=== PATIENT | female | born 1950 | race Caucasian/White ===

== ENCOUNTER → 2017-12-27 12:30 | Outpatient (CLI) | payer MEDICARE, SELFPAY ==
[2017-10-01 14:36] VITALS: BMI 44.2
== END ==
PROVIDERS: PCP Internal Medicine; Visit Provider Internal Medicine
DX: E03.9 Hypothyroidism, unspecified (principal)
CPT/HCPCS: 36415; 84443

== ENCOUNTER → 2018-09-10 12:24 | Outpatient (CLI) | payer MEDICARE, SELFPAY ==
[2017-10-01 14:36] VITALS: BMI 44.2
--- NOTE | 2018-09-10 | DI.RAD.S_ITS ---
PROCEDURE: XR CERVICAL SPINE 4V OR 5V INDICATIONS: CERVICAL SPONDYLOSIS TECHNIQUE: 5 views of the cervical spine were acquired. COMPARISON: None. FINDINGS: Bones: No fractures or dislocations to the C7-T1 level. Degenerative disc disease at C4-5, C5-6 and C6-7 levels are seen. No suspicious bony lesions. There is normal range of motion between flexion and extension, with preserved normal bony alignment. Soft tissues: Prevertebral soft tissues are normal in thickness. IMPRESSION: Degenerative disc disease in mid to lower cervical spine. No compression fracture or spondylolisthesis. Normal range of motion. Dictated by: Gabriel Lemos M.D. on 09/10/2018 at 14:34 Approved by: Gabriel Lemos M.D. on 09/10/2018 at 14:35
== END ==
PROVIDERS: Family Provider Internal Medicine; PCP Internal Medicine; Visit Provider Internal Medicine Rheumatology
DX: M50.321 Other cervical disc degeneration at C4-C5 level (principal)
CPT/HCPCS: 72050

== ENCOUNTER → 2018-10-06 13:49 | Outpatient (CLI) | payer MEDICARE, SELFPAY ==
[2017-10-01 14:36] VITALS: BMI 44.2
== END ==
PROVIDERS: Family Provider Internal Medicine; PCP Internal Medicine; Visit Provider Physician Assistant
DX: R30.0 Dysuria (principal)
CPT/HCPCS: 87077; 87086; 87186

== ENCOUNTER 2018-11-14 01:57 | Emergency (ER) | payer MEDICARE, SELFPAY ==
[2017-10-01 14:36] VITALS: BMI 44.2
[2018-11-14 02:03] VITALS: BP 187/101; PULSE 105; RESP 18; TEMP 36.9; O2SAT 99; BMI 41.6
[2018-11-14] MEDS: IBUPROFEN 400 MG TABLET PO (02:15)
--- NOTE | 2018-11-14 02:15 | ED.FALL ---
HPI - Fall General Chief Complaint: Fall Stated Complaint: Fell and hit her head Time Seen by Provider: 11/14/18 02:00 Source: patient Mode of arrival: ambulatory Limitations: no limitations History of Present Illness HPI Narrative: Patient is a 68-year-old female who presents after ground level fall. She thinks she slipped on CT throw up she fell forward hitting her head on a ceramic bowl. She is complaining of some right knee discomfort as well and a left breast scratch. She did not lose consciousness she is not on any anti-platelet or anticoagulation medication. She has no neck pain. She has no persistent vomiting. She is worried because the cut up her head she thought she might need some antibiotics. She has previously had bilateral knee replacements and she does not want them to get. She actually did a great job of getting the bleeding to stop. It is fairly small superficial laceration right at the start of the hairline. She also has some right knee pain but really is ambulatory and able to move the leg quite easily. MD complaint: fall Onset (ago): minute(s) Fall from: standing Fall witnessed: no Related Data Home Medications Medication Instructions Recorded Confirmed benazepril [Lotensin] 10 mg PO DAILY 09/17/17 10/06/18 clemastine 2.68 mg PO DAILY PRN 09/17/17 10/06/18 clotrimazole-betamethasone 1 applic TOPICAL BID 09/17/17 10/06/18 [Lotrisone] cyclobenzaprine 10 mg PO BID 09/17/17 10/06/18 duloxetine 60 mg PO DAILY 09/17/17 10/06/18 hydrochlorothiazide 50 mg PO DAILY 09/17/17 10/06/18 hydrocortisone-pramoxine 1 applic AR BID PRN 09/17/17 10/06/18 [Analpram-HC] hydroxyzine pamoate 50 mg PO Q4H PRN 09/17/17 10/06/18 levothyroxine 125 mcg PO DAILY 09/17/17 10/06/18 phenazopyridine [Pyridium] 200 mg PO TID PRN 09/17/17 10/06/18 sertraline [Zoloft] 100 mg PO DAILY 09/17/17 10/06/18 sumatriptan succinate [Imitrex] 50 mg PO Q2-4H PRN 09/17/17 10/06/18 omeprazole 20 mg PO DAILY 10/01/17 10/06/18 potassium chloride 10 meq PO DAILY 10/01/17 10/06/18 Previous Rx's Medication Instructions Recorded oxycodone 10 mg PO Q4H PRN #60 tab 10/03/17 Synthroid 125 mcg tablet 125 mcg PO DAILY #90 tab NS 08/26/18 Allergies Allergy/AdvReac Type Severity Reaction Status Date / Time mushroom [MUSHROOM] Allergy Severe 'CUTS OFF Verified 10/06/18 13:33 BREATHING' oxaprozin [OXAPROZIN] Allergy Mild RASH Verified 10/06/18 13:33 diphenhydramine AdvReac Severe PERSONALITY Verified 10/06/18 13:33 [DIPHENHYDRAMINE] CHANGE I TURN INTO AN AX KILLER trazodone [TRAZODONE] AdvReac Severe DIFFICULTY Verified 10/06/18 13:33 SLEEPING, MADE ME CRAZY pineapple [PINEAPPLE] AdvReac Mild VOMITING Verified 10/06/18 13:33 Review of Systems Review of Systems ROS Unobtainable: All systems reviewed & are unremarkable except as noted in HPI and below Constitutional Denies chills, Denies fever(s), Denies headache(s), Denies lethargy and Denies weakness ENT Ears, Nose, Mouth, and Throat: Denies headache(s) and Denies neck pain Cardiovascular Denies chest pain, Denies irregular heart rhythm, Denies lightheadedness, Denies palpitations, Denies dyspnea, Denies dyspnea on exertion and Denies orthopnea Respiratory Denies cough, Denies dyspnea, Denies dyspnea on exertion and Denies wheezing Gastrointestinal Gastrointestinal: Denies abdominal pain, Denies change in bowel habits, Denies diarrhea, Denies nausea and Denies vomiting Genitourinary Denies hematuria, Denies flank pain, Denies urinary incontinence and Denies urinary urgency Musculoskeletal Reports arthralgias (Chronic arthritis), Denies joint swelling, Denies neck pain, Denies numbness, Denies radiating pain into limb and Denies stiffness Integumentary/Breasts Denies pruritus, Denies erythema, Denies rash and Denies wounds Neurologic Reports as per HPI, Denies confusion, Denies headache(s), Denies focal weakness, Denies numbness and Denies weakness Comments: Head injury, no LOC Psychiatric Denies confusion Endocrine Denies palpitations Allergic/Immunologic Denies wheezing Exam Initial Vital Signs Initial Vital Signs: Vital Signs Temperature 98.5 F 11/14/18 02:03 Pulse Rate 105 H 11/14/18 02:03 Respiratory Rate 18 11/14/18 02:03 Blood Pressure 187/101 H 11/14/18 02:03 Pulse Oximetry 99 11/14/18 02:03 GENERAL: Alert well-appearing middle-aged female and in no acute distress. HEENT: Head no crepitations no depressions small 0.25cm superficial laceration bleeding controlled centrally located at the start of the hairline,EOMI, pupils reactive, face symmetric, moist mucous membranes NECK: No vertebral tenderness full flexion-extension and rotation CARDIOVASCULAR: Regular rate and rhythm without murmurs, rubs or gallops. RESPIRATORY: Breath sounds equal bilaterally, no wheezes rales or rhonchi. ABDOMEN: Soft, nontender. Normoactive bowel sounds all 4 quadrants. No guarding or rebound. EXTREMITIES: Normal range of motion, no clubbing or edema. Neurovascularly intact Right knee: Full flexion and extension mild tenderness but ambulatory knee is otherwise stable. No erythema NEUROLOGICAL: Alert and oriented x4.Normal gait and speech. Cranial nerves II through XII grossly intact. Coater Slate strength equal bilaterally SKIN: Small laceration on forehead as described above. Also very small superficial scrape/abrasion on left breast. [facility] Medical History Arthritis (Acute) Bone spur of left foot (Acute) Bruises easily (Acute) Chronic heartburn (Acute) Constipation (Acute) Deviated septum (Acute) Dry skin (Acute) Hard of hearing (Acute) Hemorrhoids (Acute) Herniated disc (Acute) History of hysterectomy (Acute) Hypertension (Acute) Hypothyroid (Acute) IBS (irritable bowel syndrome) (Acute) Impaired vision in both eyes (Acute) Impairment of balance (Acute) Incontinence (Acute) Kidney stones (Acute) Lower back pain (Acute) Major depressive disorder (Acute) Migraine (Acute) Numbness in both legs (Acute) Post-menopausal (Acute) Rosacea (Acute) SOB (shortness of breath) on exertion (Acute) Sinus headache (Acute) Vertigo (Acute) Surgical History H/O detached retina repair (Acute) History of bilateral knee replacement (Acute) History of eye surgery (Acute) Hx of LASIK (Acute) Social History household members: none Smoking Status: Never smoker alcohol intake: current Social History household members: none Smoking Status: Never smoker alcohol intake: current Course Orders Ordered: Discontinued Medications Ibuprofen (Advil) 400 mg PO NOW ONE Stop: 11/14/18 02:09 Last Admin: 11/14/18 02:15 Dose: 400 mg Vital Signs - 8 hr 11/14/18 02:03 11/14/18 02:55 Temperature 98.5 F Pulse Rate 105 H 85 Respiratory Rate 18 18 Blood Pressure 187/101 H 165/80 H Pulse Oximetry 99 96 MDM - Fall MDM Narrative Medical decision making narrative: This time I see no indication for any imaging. Patient mostly concerned about the for antibiotics with a small superficial cut to her head. This time antibiotics are not indicated I have reassured her. Her knee really has no gross deformities minimal swelling she was ambulatory is very minimal pain on the knee itself. Discharge Plan Departure Patient Disposition: Home Clinical Impression: Head injury, closed Qualifiers: Encounter type: initial encounter Qualified Code(s): S09.90XA - Unspecified injury of head, initial encounter Discharge Date/Time: 11/14/18 02:55 Interventions: ED Discharge Assessment Last Done: 11/14/18 02:55 Instructions: How to Prevent Falls, Closed Head Injury Activity Restrictions/Additional Instructions: *You have been diagnosed with closed head injury *What to do: At this time have no signs or symptoms of concussion. I recommend that you put triple antibiotic ointment 1-2 times daily on it your small cuts to help prevent infection. Keep clean and dry with soap and water. *Continue to take medications as directed *Follow up with your primary care provider in 2-3 days *Return to ER if you should have worsening headache, persistent vomiting, balance problems or any new, worsening or concerning symptoms Prescriptions: No Action levothyroxine [Synthroid] 125 mcg tablet 125 mcg PO DAILY Qty: 90 RF: 0 cyclobenzaprine 10 mg Tablet 10 mg PO BID RF: 0 hydrochlorothiazide 50 mg Tablet 50 mg PO DAILY RF: 0 phenazopyridine [Pyridium] 200 mg Tablet 200 mg PO TID PRN (Reason: bladder/kidney stone problems) RF: 0 hydroxyzine pamoate 50 mg Capsule 50 mg PO Q4H PRN (Reason: Muscle Spasm) RF: 0 levothyroxine 125 mcg Tablet 125 mcg PO DAILY RF: 0 clotrimazole-betamethasone [Lotrisone] 1-0.05 % Cream 1 applic TOPICAL BID RF: 0 clemastine 2.68 mg Tablet 2.68 mg PO DAILY PRN (Reason: Allergic Symptoms) RF: 0 benazepril [Lotensin] 20 mg Tablet 10 mg PO DAILY RF: 0 duloxetine 60 mg Capsule,Delayed Release(Dr/Ec) 60 mg PO DAILY RF: 0 sertraline [Zoloft] 100 mg Tablet 100 mg PO DAILY RF: 0 sumatriptan succinate [Imitrex] 50 mg Tablet 50 mg PO Q2-4H PRN (Reason: Headache) RF: 0 hydrocortisone-pramoxine [Analpram-HC] 2.5-1 % Cream 1 applic AR BID PRN (Reason: itchy,bleeding hemorroids) RF: 0 omeprazole 10 mg Capsule,Delayed Release(Dr/Ec) 20 mg PO DAILY RF: 0 potassium chloride 10 mEq Tablet Extended Release 10 meq PO DAILY RF: 0 oxycodone 5 mg Tablet 10 mg PO Q4H PRN (Reason: Severe Pain) Qty: 60 RF: 0 Referrals: Adalberto Lagos MD [Primary Care Provider] -
--- NOTE | 2018-11-14 02:23 | ED_ITS ---
HPI - Fall General Chief Complaint: Fall Stated Complaint: Fell and hit her head Time Seen by Provider: 11/14/18 02:00 Source: patient Mode of arrival: ambulatory Limitations: no limitations History of Present Illness HPI Narrative: Patient is a 68-year-old female who presents after ground level fall. She thinks she slipped on CT throw up she fell forward hitting her head on a ceramic bowl. She is complaining of some right knee discomfort as well and a left breast scratch. She did not lose consciousness she is not on any anti- platelet or anticoagulation medication. She has no neck pain. She has no persistent vomiting. She is worried because the cut up her head she thought she might need some antibiotics. She has previously had bilateral knee replacements and she does not want them to get. She actually did a great job of getting the bleeding to stop. It is fairly small superficial laceration right at the start of the hairline. She also has some right knee pain but really is ambulatory and able to move the leg quite easily. MD complaint: fall Onset (ago): minute(s) Fall from: standing Fall witnessed: no Related Data Home Medications Medication Instructions Recorded Confirmed benazepril [Lotensin] 10 mg PO DAILY 09/17/17 10/06/18 clemastine 2.68 mg PO DAILY PRN 09/17/17 10/06/18 clotrimazole-betamethasone 1 applic TOPICAL BID 09/17/17 10/06/18 [Lotrisone] cyclobenzaprine 10 mg PO BID 09/17/17 10/06/18 duloxetine 60 mg PO DAILY 09/17/17 10/06/18 hydrochlorothiazide 50 mg PO DAILY 09/17/17 10/06/18 hydrocortisone-pramoxine 1 applic NE BID PRN 09/17/17 10/06/18 [Analpram-HC] hydroxyzine pamoate 50 mg PO Q4H PRN 09/17/17 10/06/18 levothyroxine 125 mcg PO DAILY 09/17/17 10/06/18 phenazopyridine [Pyridium] 200 mg PO TID PRN 09/17/17 10/06/18 sertraline [Zoloft] 100 mg PO DAILY 09/17/17 10/06/18 sumatriptan succinate [Imitrex] 50 mg PO Q2-4H PRN 09/17/17 10/06/18 omeprazole 20 mg PO DAILY 10/01/17 10/06/18 potassium chloride 10 meq PO DAILY 10/01/17 10/06/18 Previous Rx's Medication Instructions Recorded oxycodone 10 mg PO Q4H PRN #60 tab 10/03/17 Synthroid 125 mcg tablet 125 mcg PO DAILY #90 tab NS 08/26/18 Allergies Allergy/AdvReac Type Severity Reaction Status Date / Time mushroom [MUSHROOM] Allergy Severe 'CUTS OFF Verified 10/06/18 13:33 BREATHING' oxaprozin [OXAPROZIN] Allergy Mild RASH Verified 10/06/18 13:33 diphenhydramine AdvReac Severe PERSONALITY Verified 10/06/18 13:33 [DIPHENHYDRAMINE] CHANGE I TURN INTO AN AX KILLER trazodone [TRAZODONE] AdvReac Severe DIFFICULTY Verified 10/06/18 13:33 SLEEPING, MADE ME CRAZY pineapple [PINEAPPLE] AdvReac Mild VOMITING Verified 10/06/18 13:33 Review of Systems Review of Systems ROS Unobtainable: All systems reviewed & are unremarkable except as noted in HPI and below Constitutional Denies chills, Denies fever(s), Denies headache(s), Denies lethargy and Denies weakness ENT Ears, Nose, Mouth, and Throat: Denies headache(s) and Denies neck pain Cardiovascular Denies chest pain, Denies irregular heart rhythm, Denies lightheadedness, Denies palpitations, Denies dyspnea, Denies dyspnea on exertion and Denies orthopnea Respiratory Denies cough, Denies dyspnea, Denies dyspnea on exertion and Denies wheezing Gastrointestinal Gastrointestinal: Denies abdominal pain, Denies change in bowel habits, Denies diarrhea, Denies nausea and Denies vomiting Genitourinary Denies hematuria, Denies flank pain, Denies urinary incontinence and Denies urinary urgency Musculoskeletal Reports arthralgias (Chronic arthritis), Denies joint swelling, Denies neck pain, Denies numbness, Denies radiating pain into limb and Denies stiffness Integumentary/Breasts Denies pruritus, Denies erythema, Denies rash and Denies wounds Neurologic Reports as per HPI, Denies confusion, Denies headache(s), Denies focal weakness, Denies numbness and Denies weakness Comments: Head injury, no LOC Psychiatric Denies confusion Endocrine Denies palpitations Allergic/Immunologic Denies wheezing Exam Initial Vital Signs Initial Vital Signs: Vital Signs Temperature 98.5 F 11/14/18 02:03 Pulse Rate 105 H 11/14/18 02:03 Respiratory Rate 18 11/14/18 02:03 Blood Pressure 187/101 H 11/14/18 02:03 Pulse Oximetry 99 11/14/18 02:03 GENERAL: Alert well-appearing middle-aged female and in no acute distress. HEENT: Head no crepitations no depressions small 0.25cm superficial laceration bleeding controlled centrally located at the start of the hairline,EOMI, pupils reactive, face symmetric, moist mucous membranes NECK: No vertebral tenderness full flexion-extension and rotation CARDIOVASCULAR: Regular rate and rhythm without murmurs, rubs or gallops. RESPIRATORY: Breath sounds equal bilaterally, no wheezes rales or rhonchi. ABDOMEN: Soft, nontender. Normoactive bowel sounds all 4 quadrants. No gu arding or rebound. EXTREMITIES: Normal range of motion, no clubbing or edema. Neurovascularly intact Right knee: Full flexion and extension mild tenderness but ambulatory knee is otherwise stable. No erythema NEUROLOGICAL: Alert and oriented x4.Normal gait and speech. Cranial nerves II through XII grossly intact. 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 Also very small superficial scrape/abrasion on left breast. [facility] Medical History Arthritis (Acute) Bone spur of left foot (Acute) Bruises easily (Acute) Chronic heartburn (Acute) Constipation (Acute) Deviated septum (Acute) Dry skin (Acute) Hard of hearing (Acute) Hemorrhoids (Acute) Herniated disc (Acute) History of hysterectomy (Acute) Hypertension (Acute) Hypothyroid (Acute) IBS (irritable bowel syndrome) (Acute) Impaired vision in both eyes (Acute) Impairment of balance (Acute) Incontinence (Acute) Kidney stones (Acute) Lower back pain (Acute) Major depressive disorder (Acute) Migraine (Acute) Numbness in both legs (Acute) Post-menopausal (Acute) Rosacea (Acute) SOB (shortness of breath) on exertion (Acute) Sinus headache (Acute) Vertigo (Acute) Surgical History H/O detached retina repair (Acute) History of bilateral knee replacement (Acute) History of eye surgery (Acute) Hx of LASIK (Acute) Social History household members: none Smoking Status: Never smoker alcohol intake: current Social History household members: none Smoking Status: Never smoker alcohol intake: current Course Orders Ordered: Discontinued Medications Ibuprofen (Advil) 400 mg PO NOW ONE Stop: 11/14/18 02:09 Last Admin: 11/14/18 02:15 Dose: 400 mg Vital Signs - 8 hr 11/14/18 02:03 11/14/18 02:55 Temperature 98.5 F Pulse Rate 105 H 85 Respiratory Rate 18 18 Blood Pressure 187/101 H 165/80 H Pulse Oximetry 99 96 MDM - Fall MDM Narrative Medical decision making narrative: This time I see no indication for any i maging. Patient mostly concerned about the for antibiotics with a small superficial cut to her head. This time antibiotics are not indicated I have reassured her. Her knee really has no gross deformities minimal swelling she was ambulatory is very minimal pain on the knee itself. Discharge Plan Departure Patient Disposition: Home Clinical Impression: Head injury, closed Qualifiers: Encounter type: initial encounter Qualified Code(s): S09.90XA - Unspecified injury of head, initial encounter Discharge Date/Time: 11/14/18 02:55 Interventions: ED Discharge Assessment Last Done: 11/14/18 02:55 Instructions: How to Prevent Falls, Closed Head Injury Activity Restrictions/Additional Instructions: *You have been diagnosed with closed head injury *What to do: At this time have no signs or symptoms of concussion. I recommend that you put triple antibiotic ointment 1-2 times daily on it your small cuts to help prevent infection. Keep clean and dry with soap and water. *Continue to take medications as directed *Follow up with your primary care provider in 2-3 days *Return to ER if you should have worsening headache, persistent vomiting, balance problems or any new, worsening or concerning symptoms Prescriptions: No Action levothyroxine [Synthroid] 125 mcg tablet 125 mcg PO DAILY Qty: 90 RF: 0 cyclobenzaprine 10 mg Tablet 10 mg PO BID RF: 0 hydrochlorothiazide 50 mg Tablet 50 mg PO DAILY RF: 0 phenazopyridine [Pyridium] 200 mg Tablet 200 mg PO TID PRN (Reason: bladder/kidney stone problems) RF: 0 hydroxyzine pamoate 50 mg Capsule 50 mg PO Q4H PRN (Reason: Muscle Spasm) RF: 0 levothyroxine 125 mcg Tablet 125 mcg PO DAILY RF: 0 clotrimazole-betamethasone [Lotrisone] 1-0.05 % Cream 1 applic TOPICAL BID RF: 0 clemastine 2.68 mg Tablet 2.68 mg PO DAILY PRN (Reason: Allergic Symptoms) RF: 0 benazepril [Lotensin] 20 mg Tablet 10 mg PO DAILY RF: 0 duloxetine 60 mg Capsule,Delayed Release(Dr/Ec) 60 mg PO DAILY RF: 0 sertraline [Zoloft] 100 mg Tablet 100 mg PO DAILY RF: 0 sumatriptan succinate [Imitrex] 50 mg Tablet 50 mg PO Q2-4H PRN (Reason: Headache) RF: 0 hydrocortisone-pramoxine [Analpram-HC] 2.5-1 % Cream 1 applic NE BID PRN (Reason: itchy,bleeding hemorroids) RF: 0 omeprazole 10 mg Capsule,Delayed Release(Dr/Ec) 20 mg PO DAILY RF: 0 potassium chloride 10 mEq Tablet Extended Release 10 meq PO DAILY RF: 0 oxycodone 5 mg Tablet 10 mg PO Q4H PRN (Reason: Severe Pain) Qty: 60 RF: 0 Referrals: Adalberto Lagos MD [Primary Care Provider] -
[2018-11-14 02:55] VITALS: BP 165/80; PULSE 85; RESP 18; O2SAT 96
== END 2018-11-14 02:55 | disposition home or self-care (01) ==
PROVIDERS: Emergency Provider Emergency Medicine; PCP Internal Medicine
DX: S09.90XA Unspecified injury of head, initial encounter (principal); W18.30XA Fall on same level, unspecified, initial encounter
CPT/HCPCS: 99282

== ENCOUNTER → 2018-11-27 13:59 | Outpatient (CLI) | payer MEDICARE, SELFPAY ==
[2017-10-01 14:36] VITALS: BMI 44.2
--- NOTE | 2018-11-27 | DI.MRI.S_ITS ---
PROCEDURE: MR LUMBAR SPINE WO CON INDICATIONS: Low back pain. Right leg radicular pain and numbness TECHNIQUE: Noncontrast sagittal T1 spin echo and T2 fast echo, sagittal STIR, axial T1 and T2 fast spin echo through the lumbar spine. In cases with scoliosis, additional coronal T2 fast spin echo may be performed. COMPARISON: [facility], MR, L-SPINE WITHOUT CONTRAST, 04/08/2017, 8:57. FINDINGS: Image quality: Excellent. Alignment and Curvature: Grade 1 retrolisthesis of L2 on L3 is unchanged Bone Marrow: Postsurgical changes related to posterior spinal fixation from L3-L5. Multilevel degenerative endplate sclerosis and spurring. Diffuse facet arthropathy. Spinal Cord: Conus medullaris terminates at the L1 level. Visualized cord demonstrates normal signal and size. Paraspinous Soft Tissues: No paravertebral masses. L1-L2: Bilateral facet arthropathy. Minimal central canal narrowing. The lateral recesses appear patent. No foraminal stenosis L2-L3: Broad-based posterior disc bulge bilateral facet arthropathy. Mild central canal narrowing which is grossly unchanged. Partial effacement of the right lateral recess, although grossly unchanged. Left lateral recess appears patent. Mild right foraminal narrowing and moderate left foraminal stenosis although no definite interval change. L3-L4: No central canal narrowing. Lateral recesses appear patent. No definite foraminal narrowing although limited evaluation given hardware artifact. L4-L5: No central canal narrowing. Lateral recesses appear widely patent. No foraminal narrowing. L5-S1: No canal stenosis. Lateral recesses appear patent. No definite foraminal stenoses IMPRESSION: Postsurgical changes from the level of L3-L5. No high-grade canal stenosis. Mild to moderate bilateral foraminal narrowing at L2-L3 as before. No interval change. Dictated by: Solomon Curtis M.D. on 11/30/2018 at 9:27 Approved by: Solomon Curtis M.D. on 11/30/2018 at 9:45
== END ==
PROVIDERS: PCP Internal Medicine; Visit Provider Physical Medicine & Rehabilitation Pain Medicine
DX: M47.816 Spondylosis without myelopathy or radiculopathy, lumbar region (principal); M48.061 Spinal stenosis, lumbar region without neurogenic claudication; M54.5 Low back pain; M79.604 Pain in right leg; R20.0 Anesthesia of skin; Z98.1 Arthrodesis status
CPT/HCPCS: 72148

== ENCOUNTER → 2019-03-24 14:22 | Outpatient (CLI) | payer MEDICARE, SELFPAY ==
[2017-10-01 14:36] VITALS: BMI 44.2
[2019-03-24 14:59] LABS: Add Manual Diff / Slide Review NO; Basophils Absolute Auto 100 /uL (0-100); Basophils Percent Auto 0.8 % (0-2); Eosinophils Absolute Auto 100 /uL (0-450); Eosinophils Percent Auto 1.7 % (2-4); Hematocrit 39.1 % (36-46); Hemoglobin 12.7 g/dL (12.0-16.0); Lymphocytes Absolute Auto 3100 /uL (1100-4500); Lymphocytes Percent Auto 40.1 % (25-40); Mean Corpuscular HGB Conc 32.4 % (30-36); Mean Corpuscular Hemoglobin 28.3 PG (26-34); Mean Corpuscular Volume 87.4 fL (80-100); Monocytes Absolute Auto 500 /uL (0-900); Neutrophils Absolute Auto 3900 /uL (1500-7000); Neutrophils Percent Auto 51.4 % (50-75); Platelet Count 224 X10^3/uL (150-400); Red Blood Cell Count 4.47 X10^6/uL (4.0-5.2); Red Cell Distribution Width 14.6 % (11.6-14.8); White Blood Cell Count 7.6 X10^3/uL (4.5-11.0)
[2019-03-24 15:49] LABS: Alanine Aminotransferase 29 IU/L (9-52); Albumin 4.7 g/dL (3.5-5.0); Alkaline Phosphatase 65 U/L (38-126); Aspartate Aminotransferase 33 IU/L (14-36); BUN Creatinine Ratio 18.6 (6-22); Bilirubin Total 0.5 mg/dL (0.2-1.3); Blood Urea Nitrogen 13 mg/dL (7-17); Calcium 9.9 mg/dL (8.4-10.2); Carbon Dioxide 30 mmol/L (22-32); Chloride 98 mmol/L (98-107); Cholesterol 214 mg/dL (140-199); Estimated Glomerular Filt Rate > 60.0 mL/min (>60); Globulin 2.4 g/dL (1.7-4.1); Glucose 137 mg/dL (80-110); HDL Cholesterol 57 mg/dL (40-60); HEMOLYSIS < 15 (0-50); LDL Cholesterol Calculated 128 mg/dL (<100); Potassium 3.9 mmol/L (3.4-5.1); Sodium 139 mmol/L (137-145); Total Protein 7.1 g/dL (6.3-8.2); Triglycerides 143 mg/dL (35-150)
[2019-03-24 16:19] LABS: TSH w/ Reflex to FT4 1.12 uIU/mL (0.47-4.68)
== END ==
PROVIDERS: PCP Internal Medicine; Visit Provider Internal Medicine
DX: I10 Essential (primary) hypertension (principal); E03.9 Hypothyroidism, unspecified; F32.9 Major depressive disorder, single episode, unspecified; M15.0 Primary generalized (osteo)arthritis
CPT/HCPCS: 36415; 80053; 80061; 84443; 85025

== ENCOUNTER → 2019-07-20 08:59 | Outpatient (CLI) | payer MEDICARE, SELFPAY ==
[2017-10-01 14:36] VITALS: BMI 44.2
[2019-07-20 10:36] LABS: Cholesterol 216 mg/dL (140-199); HDL Cholesterol 61 mg/dL (40-60); LDL Cholesterol Calculated 129 mg/dL (<100); Triglycerides 128 mg/dL (35-150)
== END ==
PROVIDERS: PCP Internal Medicine; Referring Provider Internal Medicine; Visit Provider Internal Medicine
DX: E78.2 Mixed hyperlipidemia (principal)
CPT/HCPCS: 36415; 80061

== ENCOUNTER → 2019-08-02 14:23 | Outpatient (CLI) | payer MEDICARE, SELFPAY ==
[2017-10-01 14:36] VITALS: BMI 44.2
--- NOTE | 2019-08-02 | DI.MG.S_ITS ---
BILATERAL DIGITAL SCREENING MAMMOGRAM 3D/2D WITH CAD: 08/02/2019 CLINICAL: Baseline exam. Routine screening. No prior exams were available for comparison. There are scattered fibroglandular elements in both breasts. Current study was also evaluated with a Computer Aided Detection (CAD) system. No significant masses, calcifications, or other findings are seen in either breast. IMPRESSION: NEGATIVE There is no mammographic evidence of malignancy. A 1 year screening mammogram is recommended. This exam was interpreted at Station ID: [id number]. NOTE: For mammograms, a report in lay terms will be sent to the patient. Approximately 15% of breast malignancies will not be visualized mammographically. In the management of a palpable breast mass, a negative mammogram must not discourage biopsy of a clinically suspicious lesion. Electronically Signed By: Antoni armendariz/layne:08/02/2019 16:54:17 letter sent: Normal Exam ACR BI-RADS Category 1: Negative [id number]
== END ==
PROVIDERS: PCP Internal Medicine; Referring Provider Internal Medicine; Visit Provider Internal Medicine
DX: Z12.31 Encounter for screening mammogram for malignant neoplasm of breast (principal); Z78.0 Asymptomatic menopausal state; E07.9 Disorder of thyroid, unspecified; Z82.62 Family history of osteoporosis
CPT/HCPCS: 77063; 77067; 77080

== ENCOUNTER → 2020-02-08 13:38 | Outpatient (CLI) | payer MEDICARE, SELFPAY ==
[2020-01-27 09:41] VITALS: BMI 44.2
== END ==
PROVIDERS: PCP Internal Medicine; Visit Provider Specialist
DX: N39.0 Urinary tract infection, site not specified (principal)
CPT/HCPCS: 87086

== ENCOUNTER → 2020-02-08 14:27 | Outpatient (CLI) | payer MEDICARE, SELFPAY ==
[2020-02-08 14:22] VITALS: BMI 44.2
[2020-02-08 15:19] LABS: Add Manual Diff / Slide Review NO; Basophils Absolute Auto 100 /uL (0-100); Basophils Percent Auto 0.9 % (0-2); Eosinophils Absolute Auto 100 /uL (0-450); Eosinophils Percent Auto 2.4 % (2-4); Hematocrit 34.5 % (36-46); Hemoglobin 11.1 g/dL (12.0-16.0); Lymphocytes Absolute Auto 2100 /uL (1100-4500); Lymphocytes Percent Auto 36.5 % (25-40); Mean Corpuscular HGB Conc 32.2 % (30-36); Mean Corpuscular Hemoglobin 27.4 PG (26-34); Mean Corpuscular Volume 85.4 fL (80-100); Monocytes Absolute Auto 500 /uL (0-900); Monocytes Percent Auto 8.1 % (3-14); Neutrophils Absolute Auto 3000 /uL (1500-7000); Neutrophils Percent Auto 52.1 % (50-75); Platelet Count 172 X10^3/uL (150-400); Red Blood Cell Count 4.04 X10^6/uL (4.0-5.2); Red Cell Distribution Width 14.5 % (11.6-14.8); White Blood Cell Count 5.8 X10^3/uL (4.5-11.0)
[2020-02-08 15:29] LABS: Hemoglobin A1C% w Est Avg Glu 7.2 % (4.0-6.0)
[2020-02-08 16:17] LABS: Alanine Aminotransferase 27 IU/L (<35); Albumin 4.3 g/dL (3.5-5.0); Albumin Globulin Ratio 1.7 (1.0-2.8); Alkaline Phosphatase 64 U/L (38-126); Aspartate Aminotransferase 41 IU/L (14-36); Bilirubin Total 0.4 mg/dL (0.2-1.3); Blood Urea Nitrogen 20 mg/dL (7-17); Calcium 9.1 mg/dL (8.4-10.2); Carbon Dioxide 29 mmol/L (22-32); Chloride 97 mmol/L (98-107); Cholesterol 119 mg/dL (140-199); Estimated Glomerular Filt Rate > 60.0 mL/min (>60); Globulin 2.5 g/dL (1.7-4.1); Glucose 116 mg/dL (80-110); HDL Cholesterol 56 mg/dL (40-60); HEMOLYSIS < 15 (0-50); LDL Cholesterol Calculated 39 mg/dL (<100); Potassium 3.9 mmol/L (3.4-5.1); Sodium 134 mmol/L (137-145); Total Protein 6.8 g/dL (6.3-8.2); Triglycerides 119 mg/dL (35-150)
== END ==
PROVIDERS: PCP Internal Medicine; Referring Provider Internal Medicine; Visit Provider Internal Medicine
DX: E11.9 Type 2 diabetes mellitus without complications (principal); N30.01 Acute cystitis with hematuria; N39.9 Disorder of urinary system, unspecified; N95.2 Postmenopausal atrophic vaginitis; Z87.440 Personal history of urinary (tract) infections; Z87.442 Personal history of urinary calculi
CPT/HCPCS: 36415; 80053; 80061; 81002; 83036; 84443; 85025; 87077; 87086; 87186; 99214

== ENCOUNTER → 2020-02-21 17:24 | Outpatient (CLI) | payer MEDICARE, SELFPAY ==
[2020-02-08 14:22] VITALS: BMI 44.2
[2020-02-21 18:32] LABS: Add Manual Diff / Slide Review NO; Basophils Absolute Auto 100 /uL (0-100); Basophils Percent Auto 1.3 % (0-2); Eosinophils Absolute Auto 100 /uL (0-450); Eosinophils Percent Auto 2.1 % (2-4); Hematocrit 38.4 % (36-46); Hemoglobin 12.3 g/dL (12.0-16.0); Lymphocytes Absolute Auto 2000 /uL (1100-4500); Lymphocytes Percent Auto 33.3 % (25-40); Mean Corpuscular HGB Conc 32.2 % (30-36); Mean Corpuscular Hemoglobin 27.2 PG (26-34); Mean Corpuscular Volume 84.5 fL (80-100); Monocytes Absolute Auto 400 /uL (0-900); Monocytes Percent Auto 6.8 % (3-14); Neutrophils Absolute Auto 3400 /uL (1500-7000); Neutrophils Percent Auto 56.5 % (50-75); Platelet Count 223 X10^3/uL (150-400); Red Blood Cell Count 4.54 X10^6/uL (4.0-5.2)
[2020-02-21 19:12] LABS: BUN Creatinine Ratio 27.4 (6-22); Blood Urea Nitrogen 20 mg/dL (7-17); Calcium 9.6 mg/dL (8.4-10.2); Carbon Dioxide 27 mmol/L (22-32); Chloride 98 mmol/L (98-107); Estimated Glomerular Filt Rate > 60.0 mL/min (>60); Glucose 168 mg/dL (80-110); HEMOLYSIS < 15 (0-50); Potassium 3.7 mmol/L (3.4-5.1); Sodium 137 mmol/L (137-145)
[2020-02-21 19:14] LABS: HEMOLYSIS < 15 (0-50); Iron 65 ug/dL (37-170)
[2020-02-21 19:26] LABS: Percent Iron Saturation 15 % (15-50); Total Iron Binding Capacity 447 ug/dL (265-497); Transferrin 380 mg/dL (206-381)
[2020-02-21 19:55] LABS: Ferritin 12 ng/mL (11-264)
== END ==
PROVIDERS: PCP Internal Medicine; Referring Provider Internal Medicine; Visit Provider Orthopaedic Surgery Orthopaedic Surgery of the Spine
DX: Z01.818 Encounter for other preprocedural examination (principal); Z01.812 Encounter for preprocedural laboratory examination; I10 Essential (primary) hypertension; D64.9 Anemia, unspecified
CPT/HCPCS: 36415; 80048; 82728; 83540; 83550; 85025; 93005; 93010

== ENCOUNTER → 2020-03-12 13:52 | Outpatient (CLI) | payer MEDICARE, SELFPAY ==
[2020-02-08 14:22] VITALS: BMI 44.2
[2020-03-13 14:52] LABS: COVID19 Sendout Not Detected (Not Detect)
== END ==
PROVIDERS: PCP Internal Medicine; Visit Provider Physician Assistant
DX: Z01.812 Encounter for preprocedural laboratory examination (principal)
CPT/HCPCS: 87635

== ENCOUNTER 2020-03-15 06:12 | Inpatient (IN) | payer MEDICARE, SELFPAY ==
[2020-02-08 14:22] VITALS: BMI 44.2
[2020-03-06 13:47] VITALS: BMI 42.5
[2020-03-15] VITALS (16 sets, daily range): BP systolic 133–185; BP diastolic 60–105; PULSE 89–115; RESP 11–20; TEMP 36.3–38.1; O2SAT 95–100; BMI 42.3
--- NOTE | 2020-03-15 | DI.RAD.S_ITS ---
PROCEDURE: XR LUMBAR SPINE 2-3V INDICATIONS: L2-3 TLIF TECHNIQUE: 2 operative views of the lumbar spine were acquired. COMPARISON: [facility], [place], XR LUMBAR SPINE 2-3V, 10/01/2017, 9:37. FINDINGS: Operative imaging utilized for revision of multilevel lumbar fusion, which now includes L2-L3 through L5-S1, with multilevel lillian and pedicle screw fixation and interbody cage material. IMPRESSION: Operative imaging utilized for lumbar fusion surgery. No radiographic evidence of complications. Dictated by: Dc Kimbrough M.D. on 03/15/2020 at 11:59 Approved by: Dc Kimbrough M.D. on 03/15/2020 at 12:01
[2020-03-15] MEDS: LACTATED RINGERS 1,000 ML 42 ML IV ×2 (07:21→08:46)
--- NOTE | 2020-03-15 07:37 | PM.PREOP ---
Pre-operative Note COVID-19 COVID-19 status: Negative Result date/Date tested (Pos, Neg/Pending): 03/13/20 Interval Note History & Physical reviewed/Exam performed by Physician: Yes Changes to H&P: No
[2020-03-15] MEDS: CEFAZOLIN 2 GM/100 ML FROZ.PIGGY IV ×3 (07:45→23:33)
--- NOTE | 2020-03-15 08:29 | SUR.OPER ---
Prone on spine table, head in foam head support, padded chest and pelvic supports, gel pad at knees, lower legs supported by pillows; nipples, genitalia and toes free of pressure, arms secured on foam padded arm boards at <90 degrees abduction. Tape over blanket at thigh secured to table.
[2020-03-15] MEDS: BUPIVACAINE 0.25% W/ EPI 30 ML VIAL INJ (08:42)
[2020-03-15] MEDS: BUPIVACAINE LIPOSOME 266 MG/20 ML VIAL INJ (08:43)
--- NOTE | 2020-03-15 11:17 | P.OP_ITS ---
Operative Date/Time/Diagnoses Date of procedure: 03/15/20 Time of procedure: 07:55 Pre-op diagnosis: 1. L2-3, L3-4, L4-5 spinal stenosis 2. Hx of L3-5 fusion 3.L2-3, L3-4 spondylosis with radiculopathy Post-op diagnosis: same Procedure & Clinicians Procedure: 1. L2-3 posterolateral and posterior interbody fusion 2. L2-3 posterior interbody cage placement 3. L3-4, L4-5 posterior non-segmental instrumentation removal 4. L3-4, L4-5 revision laminectomy with exploration of fusion 5. L2-3, L3-4, L4-5 posterior segmental instrumentation with pedicle screw placement 6. L3-4 posterolatearl fusion 7. [place] of bone marrow from iliac crest through a separate incision 8. Utilization of microsurgical technique and operating microscope Same procedure as scheduled: Yes Indications: Patient has been having chronic back pain and worsening lumbar radiculopathy. Patient had prior fusion surgery with improved pain level until the last 6 months. Patient has worsening radiculopathy. Patient failed multiple conservative management with worsening pain weakness and numbness in her lower extremity. Patient has been having difficulty performing activity of daily living. After discussing risks benefits of treatment options, patient elected proceed with surgery. Surgeon: Estuardo Rosa Manager Of Enterprise: Rosemary Boggs Click Yes if Unassisted: No Anesthesia Type: General Operative Notes Closure Type: primary Specimen(s): none sent Prosthetic devices, grafts, tissues, transplants, or devices: Globus revolve screws, Rise cage Applied: catheter Estimated Blood Loss (mL): 100 Blood products transfused: none Procedure in detail: Patient was seen in the preoperative area. Risks and benefits of the surgery was discussed with the patient. Informed consent was obtained from the patient and placed in the chart. Surgical site was marked. Patient was taken to the operative room. General anesthesia was administered. Prophylactic antibiotic was given to the patient less than 30 min before the incision was made. Patient was placed into a prone position on the Román table. Patient's back was then prepped and draped in the sterile fashion. Time- out was performed at this time. Using patient's previous scar incision was made over the L2-3 L3-4 L4-5 interval on the right side. Fascia was incised in line with skin incision. Patient's previously placed hardware over the L3-4 L4-5 level was identified by dissecting down to the level the hardware using a Bovie and a Marinelli. The locking caps which was removed using globus screwdriver. The locking lillian was then removed from the tulips of the pedicle screws using a Annie. The pedicle screws were then removed using the screwdriver. The screws were found to have good purchase except the right L3 pedicle screw. The Globus and MARS retractors was then placed into the wound and docked onto the L2 lamina using C-arm guidance. Using microsurgical technique and operating microscope a laminectomy facetectomy was performed by removing the L2 lamina and the L2-3 facet. The disc space at L2-3 level was identified next. And a total diskectomy was performed at L2-3 level. The endplates were decorticated using a rasp and shaver. The total diskectomy and decortication was performed at L2-3 level in order to to accomplish a L2-3 fusion. The local bone from the laminectomy and facetectomy was saved for local bone grafting. After the total diskectomy and decortication was completed, Globus Trifecta bone graft material was combined with local bone that was harvested earlier. At this time, a separate skin is incision was made over the iliac crest. A Jamshidi needle was inserted into the iliac crest through a separate skin incision. 5 cc of bone marrow aspiration was obtained through the separate skin incision using a Jamshidi needle from the iliac crest. The bone marrow aspiration was combined with local bone and the Trifecta bone grafting material. The bone grafting material was placed into the L2-3 interbody space along with a expandable cage. The cage was expanded to its maximum height using the torque limiting screwdriver. At this time a mirror image incision was made on the left side. The fascia was incised in line with the skin incision. Patient's previously placed hardware on the left side was then removed in the same fashion as it was on the right side. The hardware was also found to have good purchase. The fusion mass on the left side was exposed by performing a left-sided hemilaminectomy at L3-4 L4-5 level. The hemilaminectomy was performed using the Kerrison rongeur to undercut the lamina as well removing additional epidural scar tissue for purpose of decompressing the epidural space. The fusion mass was explored and was found have solid fusion at L4-5 level. There is visible motion at L3-4 level indicating pseudoarthrosis. Globus MARS retractor was inserted and docked onto the L2-3 L3-4 posterolateral gutter. Using the power drill, posterior-lateral decortication was performed at L2-3 L3-4 level until bleeding cortical bone was identified. The remaining bone grafting material was placed into the L2-3, L3-4 posterior lateral gutter he order to accomplish posterolateral fusion at the L2- 3 L3-4 level. Using the double C-arm technique, pedicle screws were placed into the L2-L3 L4 and L5 pedicles bilaterally. This was done by placing the Jamshidi needle into the pedicles, then placing the guidewires over the Jamshidi needle, and finally placing the cannulated screws over the guidewires bilaterally. After the pedicle screws were placed, 2 titanium rods was locked into the heads of the pedicle screws using locking caps and torque limiting screwdriver. After all the hardware was placed, and confirmed with AP and lateral C-arm imaging, the wound was then irrigated with sterile normal saline and packed with Ray-Manjula gauze for 3 min to accomplish hemostasis. After the gauze was removed the deep fascia was closed with #1 Vicryl suture. The subcutaneous layer was closed with 2-0 Vicryl. The skin was closed with skin víctor. Patient tolerated the procedure well. There were no complications. Complications: none Post-operative Condition: stable Disposition: PACU Plan for aftercare: Admit to inpatient hospital
[2020-03-15] MEDS: hydrOXYzine 50 MG/ML INJ IM (12:12)
--- NOTE | 2020-03-15 13:20 | PC.NURSE ---
Addendum entered by Gemini Broderick R.N. 03/15/20 15:14: Latest blood pressure 179/131. Fax sent to Dr. Rosa who is down in surgery. Addendum entered by Gemini Broderick R.N. 03/15/20 14:42: Patients blood pressure has been elevated 180s/100s. She states that she has high blood pressure to begin with, and the last time she was in the hospital, she had this problem because of pain. Given 2 oxycodone and her benzepril and hctz. Will check her blood pressure again in about 15 minutes. Original Note: Assess- Patients lower back dressing is cdi. She was able to move to her left side for skin check, patient has multiple bruises, lesions to buttocks and face. She is somulent and tired from pain medication and vistaril given IM down in PACU. Patient is obese with 1+ EDEMA to her lower bilateral extremities. She denies numbness, tingling to extremities, and cms wnl. Patient is lying supine and denies pain. Will not medicated her with narcotics until she is more awake, her bs are cta but she is a shallow breather with small periods of apnea. Patients states that she does not have a diagnosis of sleep apnea. Her blood pressure was initially high but cuff tight. Latest blood pressure 141/81.
[2020-03-15] MEDS: SODIUM CHLORIDE 0.9% 1,000 ML 100 ML IV ×2 (13:59→23:37)
[2020-03-15] MEDS: OXYCODONE IR 5 MG TABLET 10 MG PO ×3 (14:17→23:05)
[2020-03-15] MEDS: BENAZEPRIL 20 MG TABLET PO (14:31)
[2020-03-15] MEDS: hydroCHLOROthiazide 25 MG TABLET 50 MG PO (14:31)
--- NOTE | 2020-03-15 15:46 | PT-IP ANOTE ---
checked with nurse and stated that pt is not ready for PT at this time. BP 199/108.
[2020-03-15] MEDS: ATORVASTATIN 20 MG TABLET PO (15:59)
[2020-03-15] MEDS: DULOXETINE 30 MG CAPSULE 60 MG PO (15:59)
[2020-03-15] MEDS: POTASSIUM CHLORIDE 10 MEQ TAB PO (15:59)
[2020-03-15] MEDS: HYDROMORPHONE 0.5 MG INJ IV (18:54)
--- NOTE | 2020-03-15 19:08 | PC.NURSE ---
Patient resting in bed this shift. Very independent in bed. Drsg to back with small amount of drainage. / pain, percolone and IVP dilaudid given. Perry draining clear yellow urine. Patient has been A&O, calm and cooperative.
[2020-03-15] MEDS: DOCUSATE 100 MG CAPSULE PO (20:03)
[2020-03-15] MEDS: NITROFURANTOIN 50 MG CAPSULE PO (20:03)
[2020-03-15] MEDS: NAPROXEN 250 MG TABLET 500 MG PO (20:03)
[2020-03-15] MEDS: SENNOSIDES 8.6 MG TABLET 17.2 MG PO (20:03)
[2020-03-16] VITALS: TEMP 37.2
[2020-03-16] MEDS: ACETAMINOPHEN 325 MG TABLET 650 MG PO ×2 (00:14→20:08)
[2020-03-16] MEDS: OXYCODONE IR 5 MG TABLET 10 MG PO ×6 (02:18→20:58)
[2020-03-16] MEDS: hydrOXYzine pamoate 25 MG CAPSULE PO ×2 (02:18→23:32)
[2020-03-16 04:36] VITALS: BP 106/63; PULSE 98; RESP 16; TEMP 36.7; O2SAT 97
[2020-03-16 05:05] LABS: Hematocrit 33.2 % (36-46); Hemoglobin 10.6 g/dL (12.0-16.0)
[2020-03-16] MEDS: PANTOPRAZOLE 20 MG TABLET PO (05:10)
[2020-03-16 08:00] VITALS: BP 142/102; PULSE 99; RESP 15; TEMP 36.8; O2SAT 98
[2020-03-16] MEDS: NAPROXEN 250 MG TABLET 500 MG PO ×2 (08:15→20:57)
[2020-03-16] MEDS: DOCUSATE 100 MG CAPSULE PO ×2 (08:15→20:57)
[2020-03-16] MEDS: hydroCHLOROthiazide 25 MG TABLET 50 MG PO (08:15)
[2020-03-16] MEDS: SERTRALINE 50 MG TABLET 100 MG PO (08:15)
[2020-03-16] MEDS: FLUTICASONE 120 SPRAY/16 GM SPRAY.SUSP NASAL (08:16)
[2020-03-16] MEDS: BENAZEPRIL 20 MG TABLET PO (08:17)
[2020-03-16] MEDS: SYNTHROID 125 MCG 125 EACH PO (08:38)
--- NOTE | 2020-03-16 08:47 | PM.PNPO.1 ---
Subjective Subjective Date Patient Seen: 03/16/20 Time Patient Seen: 08:47 Interval history: POD #1 s/p L2-[address] Rosa. Patient complains of a lot of pain today. She has not been up with physical therapy. She has a Perry catheter in place. She has had 2 previous back surgeries prior to this. Exam Vital Signs (past 8 hours): - 03/16/20 04:36 03/16/20 08:00 Temperature 98.0 F 98.3 F Pulse Rate 98 H 99 H Respiratory Rate 16 15 Blood Pressure 106/63 142/102 H Pulse Oximetry 97 98 Oxygen Delivery Method Nasal Cannula Oxygen Flow Rate 0 Narrative Exam Narrative: Patient lying in bed in no acute distress. She is alert and oriented x3. Calves are soft, compressible, nontender bilaterally. Dressing intact with left-sided shadow of drainage. Sensation intact light touch throughout bilateral lower extremities. She is able to actively dorsiflex plantar flex. Objective Labs Result Diagrams: 03/16/20 04:45 Labs: Laboratory Results - last 24 hr 03/16/20 04:45 Hgb 10.6 L Hct 33.2 L Assessment & Plan Post-op Postoperative Procedures: Procedures Operation Date: 03/15/20 07:45 Actual Procedures Side Surgeon p L2-3 TLIF,L3-5 HWR, L2-5 PSF w/instrumentation Not Applicable Estuardo Rosa MD Patient mobilize with physical therapy today. Will work on pain control today. She will need Perry catheter removed today. Patient will likely discharge home tomorrow. Quality VTE Deep Vein Thrombosis/Pulmonary Embolism Present on Admission: No
--- NOTE | 2020-03-16 09:19 | CM.DANOTE ---
DCP: Case received, EMR reviewed and met with patient. Was able to obtain information from patient regarding her baseline activity status prior to surgery, as well as her living situation and plans for discharge. DCP assessment completed with information currently available. Patient is a 69 year old female who admitted yesterday morning to the care of the orthopedic team. PCP: Dr. August. Payer: confirmed: Medicare/[employer]. Patient came to the hospital for a surgical procedure. She had lumbar surgery, L2-3 posterolateral and interbody fusion. Patient had history of chronic back pain secondary to spinal stenosis. Met with patient in her room. She was lying in bed, on the phone. She is alert and oriented. She lives alone, and independent. Stated that her sister, Earlene Hester, is coming up from [place], [place] to help her, tomorrow. Stated that she has one step to get into the house. P: DCP to continue to follow and be available for any needs. She has not yet worked with P.T. yet today. Amalia Chery RN/Forming Mill Operator
--- NOTE | 2020-03-16 11:05 | OT.IP.EVAL ---
Current Diagnoses Spinal stenosis, lumbar region without neurogenic claudication (03/15/20) Arthrodesis status (03/15/20) Surgery Performed Operation Date: 03/15/20 07:45 Actual Procedures p L2-3 TLIF,L3-5 HWR, L2-5 PSF w/instrumentation(Not Applicable) - Estuardo Rosa MD Past Medical History (Last Updated 03/06/20 @ 14:26 by Yamilex Saenz RN) Arthritis (Acute) Asthma (Acute) Bone spur (Acute) Bone spur of left foot (Acute) Bruises easily (Acute) Chronic heartburn (Acute) Constipation (Acute) Deviated septum (Acute) Diabetes (Acute) Dry skin (Acute) GERD (gastroesophageal reflux disease) (Acute) Hard of hearing (Acute) Hemorrhoids (Acute) Herniated disc (Acute) History of nephrolithiasis (Acute) History of UTI (Acute) Hx of migraine headaches (Acute) Hypertension (Acute) Hypothyroid (Acute) IBS (irritable bowel syndrome) (Acute) Impaired vision in both eyes (Acute) Impairment of balance (Acute) Incontinence (Acute) Kidney stones (Acute) Lower back pain (Acute) Lower urinary tract symptoms (LUTS) (Acute) Major depressive disorder (Acute) Migraine (Acute) Numbness and tingling of both legs (Acute) Numbness in both legs (Acute) Post-menopausal (Acute) Postmenopausal atrophic vaginitis (Acute) Rheumatoid arthritis (Acute) Rosacea (Acute) Sinus headache (Acute) SOB (shortness of breath) on exertion (Acute) Thyroid disease (Acute) Urinary tract infection (Acute) Vertigo (Acute) Surgical History (Last Updated 03/06/20 @ 13:58 by Yamilex Saenz RN) H/O detached retina repair (Acute) H/O laminectomy (Acute) History of bilateral knee replacement (Acute) History of eye surgery (Acute) History of hysterectomy (Acute) History of spinal fusion (Acute 10/01/17) Hx of LASIK (Acute) Hx of nasal septoplasty (Acute) Occupational Therapy Inpatient Evaluation/Re-Eval M1 PT/OT-IP Prior Functional Status Start: 03/16/20 11:44 Freq: NEEDED Status: Active Protocol: Document 03/16/20 13:41 [facility] (Rec: 03/16/20 13:57 [facility] [id number]) Medical Review Prior Functional Status Medical History Reviewed Yes Communication Independent. Activities of Daily Living and IADL's Pt states had increased pain with use of toilet and showering. Prior Functional Level (Other details) Pt's sister to be coming to stay with her to assist her at home. Social History Household Members none Living Arrangements House Number of Floors (Floors) One Floor Number of Stairs To Enter/Railing? One step and no rail. Home Environment Standard Height Toilet,Tub/ Shower Home Equipment Front Wheel Walker,Four Wheel Walker,Quad Cane,Straight Cane ,Raised Toilet Seat w/Armrests ,Tub Transfer Bench,Hand Held Shower,Long Handled Sponge, Long Handled Shoe Horn,General Manager In Training ,Sock Aid M2 OT-IP Current Condition Start: 03/16/20 11:44 Freq: Status: Active Protocol: Document 03/16/20 13:41 [facility] (Rec: 03/16/20 13:57 [facility] [id number]) Occupational Therapy Current Condition Current Condition Evaluation Date 03/16/20 Treatment Diagnosis Spinal stenosis s/p L3-4 TLIF, L3-5 PSF Diagnosis Onset Date 03/15/20 Post Operative Precautions Lumbar Precautions Log Roll,No Twisting,Limit Bending,Lifting Restriction of 10 lbs,Gait Belt above Incisional Area M3 OT- IP Subjective and Pain Start: 03/16/20 11:44 Freq: Status: Active Protocol: Document 03/16/20 13:41 [facility] (Rec: 03/16/20 13:57 [facility] [id number]) OT- Subjective Occupational Therapy Visit Type Type Initial Evaluation Visit Start Time 10:13 Visit Stop Time 11:05 Total Visit Minutes 52 Occupational Therapy Visit Comments Patient Comments Pt agreed to get up and wanting to have the catheter out, nursing notified. Patient/Caregiver Goals TO go home. OT Pain Assessment Pain When Pain Assessed At Rest Pain Present Pain Present Pain Reported Location Back Intensity 4 Scale Used Numeric (0 - 10) M4 OT- IP ADL's Start: 03/16/20 11:44 Freq: Status: Active Protocol: Document 03/16/20 13:41 [facility] (Rec: 03/16/20 13:57 [facility] [id number]) OT ADL-Oral Care Comments Oral Care Comments NOt at this time. Pt re- educated spit into a cup or lean at her hips to dpit into the sink. OT ADL-Dressing General Eval Lower Body Dressing Ability Maximum Assistance Comments OT Dressing Comments Pt has all LB dressing equipment at home from prior surgery and has good understanding for use . OT ADL-Toileting Comments OT Toileting Comments Pt has oscar in place. Pt agreed to suggestion of wearing disposable brief initially at home so not having to bourgeois to the toilet at night. Pt states manages to wipe appropriately , spoke of possible use of toilet paper aid and continued use of wipes for hygiene needs. OT ADL-Bathing Comments OT Bathing Comments NOt at this time. M5 OT- IP IADL's Start: 03/16/20 11:44 Freq: Status: Active Protocol: Document 03/16/20 13:41 [facility] (Rec: 03/16/20 13:57 [facility] [id number]) OT-Instrumental Activities of Daily Living Home Safety Awareness Awareness of Need for Assistance at Home Good Awareness Ability to Problem Solve Emergency Able to Problem Solve Situations Medication Management Medication Management No Deficits Identified Medication Management Comments Pt states does her own at home . Money Management Money Management No Deficits Identified Money Management Comments Pt states already paid the bills for the month. Meal Preparation Meal Preparation Caregiver Provides Assist Cable Swager Cable Swager Caregiver Provides Assist M6 OT- IP Functional Cognition Start: 03/16/20 11:44 Freq: Status: Active Protocol: Document 03/16/20 13:41 [facility] (Rec: 03/16/20 13:57 [facility] [id number]) Cognitive Factors Limiting Selfcare Function Cognitive Ability Level of Alertness Alert Patient Orientation Name,Place,Situation Attention Span Ability Capable of Focused Attention, Capable of Sustained Attention Ability to Follow Commands Able to Follow One Step Commands Safety Awareness Decreased Recall of Precautions,Decreased Ability to Apply Precautions Cognitive Comments Cognitive Assessment Comments Pt able follow commands for mobility needs. Initially pt not remembering her back precautions and needing education. OT- Vision and Hearing OT- Hearing Assessment OT- Hearing Assessment WFL OT- Vision Assessment Visual Acuity Glasses For Reading M7 OT- IP Mobility and Balance Start: 03/16/20 11:44 Freq: Status: Active Protocol: Document 03/16/20 13:41 [facility] (Rec: 03/16/20 13:57 [facility] [id number]) OT- Bed Mobility Assessment Rolling Type of Rolling Roll to Right Supine to Sit Supine to Sit Assist Contact Guard Assistance OT-Transfer Assessment Sit to and From Stand Sit to and from Stand Standby Assistance Transfers Transfer Ability Standby Assistance Technique Transfer Destination Bed,Chair Devices Transfer Assistive Devices Gait Belt,Front Wheeled Walker Comments Mobility Comments BP sitting 121/73 and after walking with FWW to the recliner dropped to 107/66, pt states feels shaky and then BP dropped to 87/66, nursing notified and came to check on th pt and also took the catheter out. Pt then increased to 110/58. OT- Balance Assessment Sitting Balance and Reactions Static Sitting Balance Ability Normal Dynamic Sitting Balance Ability Good Standing Balance and Reactions Static Standing Balance Ability Fair M8 OT- IP Objective Assessments Start: 03/16/20 11:44 Freq: Status: Active Protocol: Document 03/16/20 13:41 [facility] (Rec: 03/16/20 13:57 [facility] [id number]) OT Gross Range of Motion Upper Extremity Range of Motion Assessment Within Functional Limits OT-Muscle Tone Assessment Muscle Tone WNL Yes M9 OT- IP Assessment and Plan Start: 03/16/20 11:44 Freq: Status: Active Protocol: Document 03/16/20 13:41 [facility] (Rec: 03/16/20 13:57 [facility] [id number]) OT Summary Assessment and Plan Potential Rehabilitation Potential Excellent Analytic Complexity at Evaluation Low Summary OT Impairments Pain,Balance,Functional Cognition,Functional Mobility, Dressing,Toileting,Bathing, Toilet Transfers,Shower Transfers,Activity Tolerance Progress Towards Goals Slow Progress due to Pain,Slow Progress due to Medical Issues Assessment Summary Pt low complexity here due to S/P L3-4 TLIF, L3-5 PSF and had prior L3-5 HWR, TLIF in 2017. Pt main barriers are one step, low BP initially as first time up, and now needing one person assist for needs. Pt already has all the equipment needs from prior back surgery and to have her sister come and stay with her to assist. Pt looking to go home when medically stable. Goals Grooming Goal Independent Dressing Goal Independent Toileting Goal Independent Bathing Goal Independent Toilet Transfer Goal Independent Shower Transfer Goal Independent Patient/Caregiver Education Goal Demonstrate Post-Op Precautions,Caregiver Independent Assisting Patient Days to Meet Goals 3 Frequency of Treatment Frequency Of Treatment Once a Day Treatment Plan OT Treatment Plan ADL Training,Functional Cognition Training,Functional Mobility,Patient/Family Education,Discharge Planning Other Treatment Recommendations and Next Shower Treatment Focus Discharge Recommendations OT Discharge Recommendations Home with Assistance Transportation Needs at Discharge Private Vehicle
--- NOTE | 2020-03-16 11:21 | PT.IIE ---
Current Diagnoses Spinal stenosis, lumbar region without neurogenic claudication (03/15/20) Arthrodesis status (03/15/20) Surgery Performed Operation Date: 03/15/20 07:45 Actual Procedures p L2-3 TLIF,L3-5 HWR, L2-5 PSF w/instrumentation(Not Applicable) - Estuardo Rosa MD Surgical History (Last Updated 03/06/20 @ 13:58 by Yamilex Saenz RN) H/O detached retina repair (Acute) H/O laminectomy (Acute) History of bilateral knee replacement (Acute) History of eye surgery (Acute) History of hysterectomy (Acute) History of spinal fusion (Acute 10/01/17) Hx of LASIK (Acute) Hx of nasal septoplasty (Acute) Medical History (Last Updated 03/06/20 @ 14:26 by Yamilex Saenz RN) Arthritis (Acute) Asthma (Acute) Bone spur (Acute) Bone spur of left foot (Acute) Bruises easily (Acute) Chronic heartburn (Acute) Constipation (Acute) Deviated septum (Acute) Diabetes (Acute) Dry skin (Acute) GERD (gastroesophageal reflux disease) (Acute) Hard of hearing (Acute) Hemorrhoids (Acute) Herniated disc (Acute) History of nephrolithiasis (Acute) History of UTI (Acute) Hx of migraine headaches (Acute) Hypertension (Acute) Hypothyroid (Acute) IBS (irritable bowel syndrome) (Acute) Impaired vision in both eyes (Acute) Impairment of balance (Acute) Incontinence (Acute) Kidney stones (Acute) Lower back pain (Acute) Lower urinary tract symptoms (LUTS) (Acute) Major depressive disorder (Acute) Migraine (Acute) Numbness and tingling of both legs (Acute) Numbness in both legs (Acute) Post-menopausal (Acute) Postmenopausal atrophic vaginitis (Acute) Rheumatoid arthritis (Acute) Rosacea (Acute) Sinus headache (Acute) SOB (shortness of breath) on exertion (Acute) Thyroid disease (Acute) Urinary tract infection (Acute) Vertigo (Acute) Physical Therapy Inpatient Evaluation/Re-Eval M1 PT/OT-IP Prior Functional Status Start: 03/16/20 11:44 Freq: NEEDED Status: Active Protocol: Document 03/16/20 13:41 [facility] (Rec: 03/16/20 13:57 [facility] [id number]) Medical Review Prior Functional Status Medical History Reviewed Yes Communication Independent. Activities of Daily Living and IADL's Pt states had increased pain with use of toilet and showering. Prior Functional Level (Other details) Pt's sister to be coming to stay with her to assist her at home. Social History Household Members none Living Arrangements House Number of Floors (Floors) One Floor Number of Stairs To Enter/Railing? One step and no rail. Home Environment Standard Height Toilet,Tub/ Shower Home Equipment Front Wheel Walker,Four Wheel Walker,Quad Cane,Straight Cane ,Raised Toilet Seat w/Armrests ,Tub Transfer Bench,Hand Held Shower,Long Handled Sponge, Long Handled Shoe Horn,Animal Herder ,Sock Aid M1 PT/OT-IP Prior Functional Status Start: 03/16/20 14:29 Freq: NEEDED Status: Active Protocol: Document 03/16/20 11:21 AB (Rec: 03/16/20 14:39 AB [id number]) Medical Review Prior Functional Status Medical History Reviewed Yes Communication able to make needs known Mobility and Gait pt stated that she is independent with all mobilities and ambulation without AD Social History Household Members none Living Arrangements House Number of Floors (Floors) One Floor Number of Stairs To Enter/Railing? has 1 step to enter Home Environment Standard Height Toilet,Tub/ Shower Home Equipment Front Wheel Walker,Quad Cane, Straight Cane,Raised Toilet Seat w/Armrests,Tub Transfer Bench,Hand Held Shower,Long Handled Sponge,Long Handled Shoe Horn,Animal Herder,Sock Aid Additional Social History Comment pt plans to go home and her sister will stay with her for ~ 2weeks to assist her pt has a safety frame M2 PT-IP Current Condition Start: 03/16/20 14:29 Freq: NEEDED Status: Active Protocol: Document 03/16/20 11:21 AB (Rec: 03/16/20 14:39 AB [id number]) Physical Therapy Current Condition Current Condition Evaluation Date 03/16/20 Treatment Diagnosis s/p L2-3, L3-4 fusion; L3-5 rev. lami; difficulty in walking Onset Date 03/15/20 Precautions Lumbar Precautions Log Roll,No Twisting,Limit Bending,Lifting Restriction of 10 lbs,Gait Belt above Incisional Area M3 PT-IP Subjective Start: 10/15/20 14:29 Freq: NEEDED Status: Active Protocol: Document 03/16/20 11:21 AB (Rec: 03/16/20 14:39 AB [id number]) Subjective Physical Therapy Visit Type Type Initial Evaluation Visit Start Time 11:21 Visit Stop Time 11:39 Total Visit Minutes 18 Number of RADIATION THERAPY TECHNOLOGIST Visits 0 Physical Therapy Visit Comments Patient Comments pt is agreeable to do PT Therapy Pain Assessment Pain When Pain Assessed At Rest Pain Present Pain Present Pain Reported Location Back Intensity 5 Scale Used 8/10 with mobility Pain Management Techniques Re-positioning,Timing of Activity with Medications M4 PT-IP Mobility and Gait Start: 03/16/20 14:29 Freq: NEEDED Status: Active Protocol: Document 03/16/20 11:21 AB (Rec: 03/16/20 14:39 AB [id number]) PT-Bed Mobility Assessment Rolling Type of Rolling Log Rolling Level of Assist Standby Assistance Supine to Sit Supine to Sit Standby Assistance Sit to Supine Sit to Supine Standby Assistance PT-Transfer Assessment Sit to and From Stand Sit to and from Stand Standby Assistance,Contact Guard Assistance,1 Person Assistance Equipment Transfer Assistive Device Gait Belt,Front Wheeled Walker Orthotic/Prosthetic Devices or Brace: No Transfers Transfer Destination Bed,Chair Transfer Technique ambulated using FWW Transfer Ability Level of Assist Standby Assistance,Contact Guard Assistance,1 Person Assistance,Use of Upper Extremities Comments Mobility Comments BP 127/67. completed sit to stand from chair CGA. pt without c/o dizzines/ lightheadedness. ambulated to the bed using FWW CGA. completed supine<>sit SBA with reminders to do log roll bed mobility. c/o increase back pain with mobility. completed sit to stand CGA and ambulated back to chair using FWW. pt stated that he wants to rest and has increase back pain. positioned pt on the chair. call light and table placed within reach. Gait Assessment Gait Gait Assistance Required: Contact Guard Assist,1 Person Assist Distance (Feet) 12 Able to Maintain Weight Bearing Status Yes During Gait Assistive Devices Assistive Device Gait Belt,Front Wheeled Walker Orthotic/Prosthetic Devices or Brace: No Gait Deviations General Gait Pattern Antalgic,Decreased Stride Length,Decreased Feet Clearance Factors Limiting Gait Function Factors Limiting Gait Function Decreased Activity Tolerance, Decreased Strength,Limited Range of Motion,Pain,Poor Balance,Poor Safety Awareness Comments Gait Comments pls refer to mobility section for details PT-Balance Assessment Sitting Balance and Reactions Static Sitting Balance Ability Good Dynamic Sitting Balance Ability Good Standing Balance and Reactions Static Standing Balance Ability Fair Dynamic Standing Balance Ability Fair Device Used FWW M5 PT-IP Objective Assessments Start: 03/16/20 14:29 Freq: NEEDED Status: Active Protocol: Document 03/16/20 11:21 AB (Rec: 03/16/20 14:39 AB [id number]) Orientation Orientation/Cognition Level of Alertness Alert Orientation Name,Age,Birthday,Month,Date, Year,Day of Week,Place, Situation Language Function Ability No Deficits Noted Safety Awareness Decreased Safety Awareness Memory Description No Deficits Noted Gross Range of Motion Lower Extremity ROM Assessment Within Functional Limits Strength Lower Extremity Strength Assessment Within Functional Limits Coordination Assessment Gross Coordination Gross Coordination WNL Muscle Tone Muscle Tone WNL Yes M6 PT-IP Treatment Start: 03/16/20 14:29 Freq: NEEDED Status: Active Protocol: Document 03/16/20 11:21 AB (Rec: 03/16/20 14:39 AB [id number]) Physical Therapy Treatment Education Education Provided Precautions,Weight Bearing Status,Post-Op Packet,Safety M7 PT-IP Assessment and Plan Start: 03/16/20 14:29 Freq: NEEDED Status: Active Protocol: Document 03/16/20 11:21 AB (Rec: 03/16/20 14:39 AB [id number]) PT Summary Assessment and Plan Potential Rehabilitation Potential Good Status of Condition at Evaluation Stable Summary Impairments Pain,ROM,Strength,Balance,Bed Mobility,Transfers,Gait, Activity Tolerance Assessment Summary pt requiring SBA to CGA with mobility and uses FWW for ambulation. pt plans to go home with her sister to assist her. pt may go home when medically stable. Goals Bed Mobility Goal Independent Transfer Goal Independent,Front Wheeled Walker Gait Goal Independent,Front Wheel Walker Gait Distance 150 Other Goals up/down 1 step using FWW SBA Days to Meet Goals 3 Frequency of Treatment Frequency Of Treatment Twice a Day Treatment Plan Physical Therapy Treatment Plan Bed Mobility Training,Transfer Training,Gait Training, Therapeutic Exercise,Balance Retraining,Post Op Education, Discharge Planning,Hot or Cold Pack,Neuromuscular Re-ed, Coordination Retraining,Manual Therapy Recommendations To Nursing Amount of Assist Needed 1 Person Assist Discharge Recommendations PT Discharge Recommendations Home with Assistance Transportation Needs at Discharge Private Vehicle
[2020-03-16 11:48] VITALS: BP 127/67; PULSE 93; RESP 16; TEMP 36.6; O2SAT 96
--- NOTE | 2020-03-16 15:00 | PC.NURSE ---
PT CONTINUES TO SLEEP COMFORTABLY MOSTLY ON ABDOMEN
[2020-03-16 16:00] VITALS: BP 153/81; PULSE 98; RESP 19; TEMP 36.5; O2SAT 99
--- NOTE | 2020-03-16 17:13 | PT-IP ANOTE ---
pt refused PT. stated that she just walked with nursing. will f/u.
[2020-03-16] MEDS: ATORVASTATIN 20 MG TABLET PO (17:18)
[2020-03-16] MEDS: DULOXETINE 30 MG CAPSULE 60 MG PO (17:18)
[2020-03-16] MEDS: POTASSIUM CHLORIDE 10 MEQ TAB PO (17:18)
[2020-03-16] MEDS: NITROFURANTOIN 50 MG CAPSULE PO (20:57)
[2020-03-16] MEDS: SENNOSIDES 8.6 MG TABLET 17.2 MG PO (20:57)
[2020-03-16 23:34] VITALS: BP 122/78; PULSE 96; RESP 20; TEMP 36.7; O2SAT 97
[2020-03-17] MEDS: OXYCODONE IR 5 MG TABLET 10 MG PO ×3 (00:14→10:26)
[2020-03-17] MEDS: ACETAMINOPHEN 325 MG TABLET 650 MG PO ×2 (01:50→09:21)
[2020-03-17] MEDS: FLUTICASONE 120 SPRAY/16 GM SPRAY.SUSP NASAL (05:08)
[2020-03-17] MEDS: PANTOPRAZOLE 20 MG TABLET PO (05:10)
[2020-03-17 07:00] VITALS: BP 132/71; PULSE 83; RESP 18; TEMP 36.6; O2SAT 99
[2020-03-17] MEDS: NAPROXEN 250 MG TABLET 500 MG PO (09:20)
[2020-03-17] MEDS: BENAZEPRIL 20 MG TABLET PO (09:20)
[2020-03-17] MEDS: SERTRALINE 50 MG TABLET 100 MG PO (09:20)
[2020-03-17] MEDS: DOCUSATE 100 MG CAPSULE PO (09:21)
[2020-03-17] MEDS: hydroCHLOROthiazide 25 MG TABLET 50 MG PO (09:21)
--- NOTE | 2020-03-17 09:30 | OT.IP.TRT ---
Current Diagnoses Spinal stenosis, lumbar region without neurogenic claudication (03/15/20) Arthrodesis status (03/15/20) Surgery Performed Operation Date: 03/15/20 07:45 Actual Procedures p L2-3 TLIF,L3-5 HWR, L2-5 PSF w/instrumentation(Not Applicable) - Estuardo Rosa MD Occupational Therapy Treatment Note M2 OT-IP Current Condition Start: 03/16/20 11:44 Freq: Status: Active Protocol: Document 03/16/20 13:41 [facility] (Rec: 03/16/20 13:57 [facility] [id number]) Occupational Therapy Current Condition Current Condition Evaluation Date 03/16/20 Treatment Diagnosis Spinal stenosis s/p L3-4 TLIF, L3-5 PSF Diagnosis Onset Date 03/15/20 Post Operative Precautions Lumbar Precautions Log Roll,No Twisting,Limit Bending,Lifting Restriction of 10 lbs,Gait Belt above Incisional Area M3 OT- IP Subjective and Pain Start: 03/16/20 11:44 Freq: Status: Active Protocol: Document 03/17/20 11:13 CGR (Rec: 03/17/20 11:17 CGR [email or web address]) OT- Subjective Occupational Therapy Visit Type Type Progress Note Visit Start Time 09:20 Visit Stop Time 09:30 Total Visit Minutes 10 Occupational Therapy Visit Comments Patient Comments I am ready to go home. OT Pain Assessment Pain When Pain Assessed During Mobility Pain Present Pain Present Pain Reported Location Back Intensity 2 Scale Used Numeric (0 - 10) Management Techniques Re-positioning,Timing of Activity with Medications M4 OT- IP ADL's Start: 03/16/20 11:44 Freq: Status: Active Protocol: Document 03/17/20 11:13 CGR (Rec: 03/17/20 11:17 CGR [id number]) OT [id number] Comments OT Self-Feeding Comments not meal time OT ADL-Grooming General Evaluation Grooming Ability Independent Areas Needing Assistance Retrieving/Set-up of Grooming Items,Combing/Brushing Hair, Face Washing Comments OT Grooming Comments Pt performed seated in chair using her own face clothes etc . OT ADL-Oral Care General Eval Oral Care Ability Independent Comments Oral Care Comments seated in chair using her own stuff. OT ADL-Dressing Comments OT Dressing Comments Not performed. Pt states she is comfortable with the use of the DME for LB dressing. OT ADL-Toileting Comments OT Toileting Comments not performed OT ADL-Bathing Comments OT Bathing Comments Pt declined to perform shower. States sister will assist at home. M5 OT- IP IADL's Start: 03/16/20 11:44 Freq: Status: Active Protocol: Document 03/16/20 13:41 [facility] (Rec: 03/16/20 13:57 [facility] [id number]) OT-Instrumental Activities of Daily Living Home Safety Awareness Awareness of Need for Assistance at Home Good Awareness Ability to Problem Solve Emergency Able to Problem Solve Situations Medication Management Medication Management No Deficits Identified Medication Management Comments Pt states does her own at home . Money Management Money Management No Deficits Identified Money Management Comments Pt staets already paid the bills for the month. Meal Preparation Meal Preparation Caregiver Provides Assist Marketing Segment Manager Marketing Segment Manager Caregiver Provides Assist M6 OT- IP Functional Cognition Start: 03/16/20 11:44 Freq: Status: Active Protocol: Document 03/16/20 13:41 [facility] (Rec: 03/16/20 13:57 [facility] [id number]) Cognitive Factors Limiting Selfcare Function Cognitive Ability Level of Alertness Alert Patient Orientation Name,Place,Situation Attention Span Ability Capable of Focused Attention, Capable of Sustained Attention Ability to Follow Commands Able to Follow One Step Commands Safety Awareness Decreased Recall of Precautions,Decreased Ability to Apply Precautions Cognitive Comments Cognitive Assessment Comments Pt able follow commands for mobility needs. Initially pt not remembering her back precautions and needng education. OT- Vision and Hearing OT- Hearing Assessment OT- Hearing Assessment WFL OT- Vision Assessment Visual Acuity Glasses For Reading M7 OT- IP Mobility and Balance Start: 03/16/20 11:44 Freq: Status: Active Protocol: Document 03/17/20 11:13 [facility]GR (Rec: 03/17/20 11:17 CGR [id number]) OT- Bed Mobility Assessment Rolling Type of Rolling Roll to Right Level of Assistance Independent Supine to Sit Supine to Sit Assist Independent Scooting Scooting to Edge of Bed Independent OT-Transfer Assessment Sit to and From Stand Sit to and from Stand Standby Assistance Transfers Transfer Ability Standby Assistance Technique Transfer Destination Bed,Chair Transfer Technique Stand Step Pivot Devices Transfer Assistive Devices Gait Belt,Front Wheeled Walker OT- Gait Assessment Gait Gait Assistance Required: Standby Assistance Assistive Devices Assistive Device Gait Belt,Front Wheeled Walker OT- Balance Assessment Sitting Balance and Reactions Static Sitting Balance Ability Normal Dynamic Sitting Balance Ability Normal M8 OT- IP Objective Assessments Start: 03/16/20 11:44 Freq: Status: Active Protocol: Document 03/16/20 13:41 CCC (Rec: 03/16/20 13:57 CCC [id number]) OT Gross Range of Motion Upper Extremity Range of Motion Assessment Within Functional Limits OT-Muscle Tone Assessment Muscle Tone WNL Yes M9 OT- IP Assessment and Plan Start: 03/16/20 11:44 Freq: Status: Active Protocol: Document 03/17/20 11:13 CGR (Rec: 03/17/20 11:17 CGR [email or web address]) OT Summary Assessment and Plan Potential Rehabilitation Potential Excellent Analytic Complexity at Evaluation Low Summary OT Impairments Pain,Balance,Functional Cognition,Functional Mobility, Dressing,Toileting,Bathing, Toilet Transfers,Shower Transfers,Activity Tolerance Progress Towards Goals Slow Progress due to Pain,Slow Progress due to Medical Issues Assessment Summary Pt low complexity here due to S/P L3-4 TLIF, L3-5 PSF and had prior L3-5 HWR, TLIF in 2017. Pt is progressing with therapy and appears to be close to her baseline. Pt would benefit from shower training if agreeable but is otherwise safe for discharge home with her sisters assist. Goals Grooming Goal Independent Dressing Goal Independent Toileting Goal Independent Bathing Goal Independent Toilet Transfer Goal Independent Shower Transfer Goal Independent Patient/Caregiver Education Goal Demonstrate Post-Op Precautions,Caregiver Independent Assisting Patient Days to Meet Goals 3 Frequency of Treatment Frequency Of Treatment Once a Day Treatment Plan OT Treatment Plan ADL Training,Functional Cognition Training,Functional Mobility,Patient/Family Education,Discharge Planning Other Treatment Recommendations and Next Shower Treatment Focus Discharge Recommendations OT Discharge Recommendations Home with Assistance Transportation Needs at Discharge Private Vehicle
--- NOTE | 2020-03-17 10:01 | PT.IPTN ---
Current Diagnoses Spinal stenosis, lumbar region without neurogenic claudication (03/15/20) Arthrodesis status (03/15/20) Surgery Performed Operation Date: 03/15/20 07:45 Actual Procedures p L2-3 TLIF,L3-5 HWR, L2-5 PSF w/instrumentation(Not Applicable) - Estuardo Rosa MD Physical Therapy Treatment Note M2 PT-IP Current Condition Start: 03/16/20 14:29 Freq: NEEDED Status: Active Protocol: Document 03/16/20 11:21 AB (Rec: 03/16/20 14:39 AB [id number]) Physical Therapy Current Condition Current Condition Evaluation Date 03/16/20 Treatment Diagnosis s/p L2-3, L3-4 fusion; L3-5 rev. lami; difficulty in walking Onset Date 03/15/20 Precautions Lumbar Precautions Log Roll,No Twisting,Limit Bending,Lifting Restriction of 10 lbs,Gait Belt above Incisional Area M3 PT-IP Subjective Start: 03/16/20 14:29 Freq: NEEDED Status: Active Protocol: Document 03/17/20 09:46 [facility] (Rec: 03/17/20 12:37 [facility] [email or web address]) Subjective Physical Therapy Visit Type Type Treatment Note Visit Start Time 09:46 Visit Stop Time 10:01 Total Visit Minutes 15 Number of FINANCIAL AID COUNSELOR Visits 1 Physical Therapy Visit Comments Patient Comments pt is agreeable to do PT Therapy Pain Assessment Pain When Pain Assessed During Mobility Pain Present Pain Present Pain Reported Location Back Scale Used no number given Description Pulling,Tightness Pain Behaviors Guarding Pain Management Techniques Re-positioning,Timing of Activity with Medications M4 PT-IP Mobility and Gait Start: 03/16/20 14:29 Freq: NEEDED Status: Active Protocol: Document 03/17/20 09:46 [facility] (Rec: 03/17/20 12:37 [facility] [email or web address]) PT-Bed Mobility Assessment Rolling Type of Rolling Log Rolling Level of Assist Standby Assistance Supine to Sit Supine to Sit Standby Assistance Sit to Supine Sit to Supine Standby Assistance Scooting Scooting to Edge of Bed Standby Assistance PT-Transfer Assessment Sit to and From Stand Sit to and from Stand Standby Assistance,1 Person Assistance,Use of Upper Extremities Equipment Transfer Assistive Device Gait Belt,Front Wheeled Walker Orthotic/Prosthetic Devices or Brace: No Transfers Transfer Destination Bed,Chair Transfer Technique ambulated using FWW Transfer Ability Level of Assist Standby Assistance,Contact Guard Assistance,1 Person Assistance,Use of Upper Extremities Comments Mobility Comments Pt in chair upon arrival from therapy and willing to participate w/ PT. Pt SBA for scooting to EOC and sit<>stand w/ FWW, with cues for hand placement. Pt then ambulated ~ 50 ft around room w/ FWW and CGA. Pt demonstrated safe use of FWW w/o cues. Pt then performed logroll into bed SBA and was left laying prone w/ all needs in reach. Pt states she feels ready to return home w/ sister to provide assistance as needed. Gait Assessment Gait Gait Assistance Required: Standby Assistance,1 Person Assist Distance (Feet) 50 Able to Maintain Weight Bearing Status Yes During Gait Assistive Devices Assistive Device Gait Belt,Front Wheeled Walker Orthotic/Prosthetic Devices or Brace: No Gait Deviations General Gait Pattern Antalgic,Decreased Stride Length,Decreased Feet Clearance Factors Limiting Gait Function Factors Limiting Gait Function Decreased Activity Tolerance, Decreased Strength,Limited Range of Motion,Pain,Poor Balance Comments Gait Comments pls refer to mobility section for details Stair Climbing Assessment Evaluation Level of Assist On Stairs Standby Assistance,1 Person Assistance Devices Stair Climbing Assistive Devices Front Wheel Walker Technique/Endurance Stair Climbing Direction Ascend and Descend Stair Climbing Technique Step to Step Number of Steps Climbed 1 Stair Climbing Set # Repetitions (reps) 1 Comments Stair Climbing Comments Pt ascended/descended 1 platform step w/ FWW and SBA w / cues for sequencing. Pt states she has never had trouble completing 1 step into house perviously and feels confident to perform safely at home. PT-Balance Assessment Sitting Balance and Reactions Static Sitting Balance Ability Good Dynamic Sitting Balance Ability Good Standing Balance and Reactions Static Standing Balance Ability Fair Dynamic Standing Balance Ability Fair Device Used FWW M5 PT-IP Objective Assessments Start: 03/16/20 14:29 Freq: NEEDED Status: Active Protocol: Document 03/16/20 11:21 AB (Rec: 03/16/20 14:39 AB [id number]) Orientation Orientation/Cognition Level of Alertness Alert Orientation Name,Age,Birthday,Month,Date, Year,Day of Week,Place, Situation Language Function Ability No Deficits Noted Safety Awareness Decreased Safety Awareness Memory Description No Deficits Noted Gross Range of Motion Lower Extremity ROM Assessment Within Functional Limits Strength Lower Extremity Strength Assessment Within Functional Limits Coordination Assessment Gross Coordination Gross Coordination WNL Muscle Tone Muscle Tone WNL Yes M6 PT-IP Treatment Start: 03/16/20 14:29 Freq: NEEDED Status: Active Protocol: Document 03/17/20 09:46 KS (Rec: 03/17/20 12:37 KS [email or web address]) Physical Therapy Treatment Education Education Provided Precautions,Weight Bearing Status,Post-Op Packet,Safety M7 PT-IP Assessment and Plan Start: 03/16/20 14:29 Freq: NEEDED Status: Active Protocol: Document 03/17/20 09:46 KS (Rec: 03/17/20 12:37 KS [email or web address]) PT Summary Assessment and Plan Potential Rehabilitation Potential Good Status of Condition at Evaluation Stable Summary Impairments Pain,ROM,Strength,Balance,Bed Mobility,Transfers,Gait, Activity Tolerance Progress Towards Goals Progressing Toward Goals Assessment Summary Pt SBA for bed mobility, ambulation, and platform step w/ FWW. Occasional cues for sequencing. Pt ambulated ~50 ft w/ FWW w/ good use of FWW and good safety awareness. Pt will benefit from outpatient therapy to improve strength and mobility when appropriate. Goals Bed Mobility Goal Independent Transfer Goal Independent,Front Wheeled Walker Gait Goal Independent,Front Wheel Walker Gait Distance 150 Other Goals up/down 1 step using FWW SBA Days to Meet Goals 3 Frequency of Treatment Frequency Of Treatment Twice a Day Treatment Plan Physical Therapy Treatment Plan Bed Mobility Training,Transfer Training,Gait Training, Therapeutic Exercise,Balance Retraining,Post Op Education, Discharge Planning,Hot or Cold Pack,Neuromuscular Re-ed, Coordination Retraining,Manual Therapy Recommendations To Nursing Amount of Assist Needed 1 Person Assist Discharge Recommendations PT Discharge Recommendations Home with Assistance Transportation Needs at Discharge Private Vehicle
--- NOTE | 2020-03-17 10:45 | PC.NURSE ---
Patients lower back dressing will be changed before she is discharged home. She is up moving around independently and tolerating well. Given tylenol for pain and discomfort. Denies any numbness or tingling down her legs and arms. States that she is feeling better.
--- NOTE | 2020-03-17 10:50 | P.DS_ITS ---
History of Present Illness History of Present Illness Date Patient Seen: 03/17/20 Time Patient Seen: 10:50 Chief complaint: INPT Narrative: Pain [id number]. No fever chills. No nausea vomiting. Patient does have penitentiary. Otherwise without complaints. Discharge Providers Provider Date of admission: 03/15/20 06:12 Discharge Date: 03/17/20 Primary care physician: Mak August MD Consults: 03/15/20 12:36 Consult to Occupational Therapy Evaluate & Treat Comment: Physician Instructions: Evaluate and treat Consult to Physical Therapy Evaluate & Treat Comment: Physician Instructions: Evaluate and Treat Discharge provider: Pradeep Amador PA-C Summary Hospital Course Discharge Diagnosis: 1. L2-3, L3-4, L4-5 spinal stenosis 2. Hx of L3-5 fusion 3.L2-3, L3-4 spondylosis with radiculopathy Hospital Course: Procedure: 1. L2-3 posterolateral and posterior interbody fusion 2. L2-3 posterior interbody cage placement 3. L3-4, L4-5 posterior non-segmental instrumentation removal 4. L3-4, L4-5 revision laminectomy with exploration of fusion 5. L2-3, L3-4, L4-5 posterior segmental instrumentation with pedicle screw placement 6. L3-4 posterolatearl fusion 7. [place] of bone marrow from iliac crest through a separate incision 8. Utilization of microsurgical technique and operating microscope Same procedure as scheduled: Yes Indications: Patient has been having chronic back pain and worsening lumbar radiculopathy. Patient had prior fusion surgery with improved pain level until the last 6 months. Patient has worsening radiculopathy. Patient failed multiple conservative management with worsening pain weakness and numbness in her lower extremity. Patient has been having difficulty performing activity of daily living. After discussing risks benefits of treatment options, patient elected proceed with surgery. Surgeon: Estuardo Rosa Sales And Marketing Professional: Rosemary Boggs Click Yes if Unassisted: No Anesthesia Type: General Operative Notes Closure Type: primary Specimen(s): none sent Prosthetic devices, grafts, tissues, transplants, or devices: Globus revolve screws, Rise cage Applied: catheter Estimated Blood Loss (mL): 100 Blood products transfused: none Status at Discharge Cognitive/behavioral status at discharge: at baseline, oriented Functional status at discharge: uses cane/walker Overall status at discharge: patient is progressing back to baseline Time Spent with Patient Time spent: Less than 30 minutes Exam Vital Signs (past 8 hours): - 03/17/20 07:00 Temperature 97.8 F Pulse Rate 83 Respiratory Rate 18 Blood Pressure 132/71 Pulse Oximetry 99 Oxygen Delivery Method Room Air Oxygen Flow Rate 0 Narrative Exam Narrative: Pleasant 61-year-old female resting comfortably in bed in no apparent distress. Lumbar dressing is clean, dry and intact. Motor functions intact to bilateral lower extremities. Sensation grossly intact to light touch bilateral lower extremities. Both legs are warm and dry. Objective Labs Result Diagrams: 03/16/20 04:45 Discharge Assessment & Plan Assessment and Plan Assessment: Patient progressing as expected status post lumbar fusion. Discharge home today in stable condition. Discharge Plan Discharge Plan Patient Disposition: Home Discharge orders & Medications Prescriptions: New naproxen 500 mg tablet 500 mg PO BID Qty: 60 RF: 0 acetaminophen 325 mg Tablet 650 mg PO Q6HR PRN (Reason: Pain, Mild (1-3)) Qty: 60 RF: 0 docusate sodium [DOK] 100 mg Capsule 100 mg PO BID Qty: 20 RF: 0 oxycodone 5 mg capsule 5 mg PO Q4H PRN (Reason: pain) Qty: 60 RF: 0 Continued levothyroxine [Synthroid] 125 mcg tablet 125 mcg PO DAILY Qty: 90 RF: 0 nitrofurantoin macrocrystal 50 mg capsule 50 mg PO BEDTIME Qty: 60 RF: 0 hydrochlorothiazide 50 mg Tablet 50 mg PO DAILY RF: 0 phenazopyridine [Pyridium] 200 mg Tablet 200 mg PO TID PRN (Reason: bladder/kidney stone problems) RF: 0 hydroxyzine pamoate 50 mg Capsule 25 mg PO Q4H PRN (Reason: Muscle Spasm) RF: 0 clotrimazole-betamethasone [Lotrisone] 1-0.05 % Cream 1 applic TOPICAL BID RF: 0 benazepril [Lotensin] 20 mg Tablet 20 mg PO DAILY RF: 0 duloxetine 60 mg Capsule,Delayed Release(Dr/Ec) 60 mg PO QPM RF: 0 sertraline [Zoloft] 100 mg Tablet 100 mg PO DAILY RF: 0 sumatriptan succinate [Imitrex] 50 mg Tablet 50 mg PO Q2-4H PRN (Reason: Headache) RF: 0 hydrocortisone-pramoxine [Analpram-HC] 2.5-1 % Cream 1 applic [place] BID PRN (Reason: itchy,bleeding hemorroids) RF: 0 omeprazole 10 mg Capsule,Delayed Release(Dr/Ec) 20 mg PO QPM RF: 0 potassium chloride 10 mEq Tablet Extended Release 10 meq PO QPM RF: 0 atorvastatin 20 mg Tablet 20 mg PO QPM RF: 0 ondansetron 4 mg Tablet,Disintegrating 4 mg PO BID PRN (Reason: Nausea) RF: 0 fluticasone propionate [Flonase Allergy Relief] 50 mcg/actuation Spr ay,Suspension 1 spray INTRANASAL DAILY RF: 0 tizanidine 4 mg Capsule 4 - 8 mg PO BID PRN (Reason: muscle spasms) RF: 0 Discontinued acetaminophen-codeine 300-30 mg Tablet 1 - 2 tab PO Q4-6H PRN (Reason: Sinus headaches) RF: 0 hydrocodone-acetaminophen 10-325 mg Tablet 1 tab PO 5XD PRN (Reason: Pain) RF: 0 etodolac 500 mg Tablet 500 mg PO BID RF: 0 Follow up/Referrals: Estuardo Rosa MD [Physician] - (2 wks) Mak August MD [Primary Care Provider] - Diet/Activity/Treatments Diet: Diet as Tolerated Activity: Limit bending, lifting, twisting Skin/Wound/Dressing Care Report to your healthcare provider any signs of infection, such as:: chills, fever, increased pain, unusual drainage and unusual redness Dressing: keep dressing clean and dry Visit Report/Discharge Packet Instructions: DI for Heart Failure, DI for Prescription Opioid Use, DI for Transforaminal Lumbar Interbody Fusion Stand Alone Forms: Surgery Discharge Discharge Data Primary Care Provider: Mak August Quality VTE Deep Vein Thrombosis/Pulmonary Embolism Present on Admission: No
== END 2020-03-17 12:42 | disposition home or self-care (01) | DRG 454 ==
PROVIDERS: Admitting Provider Orthopaedic Surgery Orthopaedic Surgery of the Spine; PCP Internal Medicine; Referring Provider Internal Medicine; Visit Provider Orthopaedic Surgery Orthopaedic Surgery of the Spine
PROC: 0SG00AJ Fusion of Lumbar Vertebral Joint with Interbody Fusion Device, Posterior Approach, Anterior Column, Open Approach (ICD-10-PCS; principal; 2020-03-15 07:45)
DX: M48.061 Spinal stenosis, lumbar region without neurogenic claudication (principal); M96.0 Pseudarthrosis after fusion or arthrodesis; Z68.41 Body mass index [BMI] 40.0-44.9, adult; M43.16 Spondylolisthesis, lumbar region; M47.26 Other spondylosis with radiculopathy, lumbar region; Z98.1 Arthrodesis status; Z01.812 Encounter for preprocedural laboratory examination; Z11.59 Encounter for screening for other viral diseases; E66.9 Obesity, unspecified
CPT/HCPCS: 36415; 72100; 76000; 85014; 85018; 87635; 97116; 97161; 97165; 97535; C1776; C9290; J0330; J0690; J1100; J1170; J2250; J2405; J2704; J3010; J3410

== ENCOUNTER → 2020-05-10 13:32 | Outpatient (CLI) | payer MEDICARE, SELFPAY ==
[2020-03-15 14:03] VITALS: BMI 42.3
[2020-05-10 14:36] LABS: Appearance Urine UA CLEAR; Bilirubin Urine UA 2+ (NEGATIVE); Color Urine UA YELLOW; Glucose Urine UA NEGATIVE (Negative); Ketones Urine UA TRACE (NEGATIVE); Leukocyte Esterase Urine UA NEGATIVE (NEGATIVE); Nitrite Urine UA NEGATIVE (Negative); Occult Blood Urine UA NEGATIVE (Negative); Protein Urine UA TRACE (Negative); Specific Gravity Urine UA 1.025 (1.000-1.035); Urobilinogen Urine UA 0.2 E.U./dL (0.2)
[2020-05-10 15:06] LABS: pH Urine UA 5.5 (4.5-8.0)
[2020-05-10 15:21] LABS: Ictotest Urine Negative (Negative)
== END ==
PROVIDERS: PCP Internal Medicine; Referring Provider Specialist; Visit Provider Specialist
DX: N30.01 Acute cystitis with hematuria (principal)
CPT/HCPCS: 81003

== ENCOUNTER → 2020-06-23 18:46 | Outpatient (ROUT) | payer MEDICARE, SELFPAY ==
[2020-03-15 14:03] VITALS: BMI 42.3
[2020-06-23 19:37] LABS: Add Manual Diff / Slide Review NO; Basophils Absolute Auto 100 /uL (0-100); Eosinophils Absolute Auto 200 /uL (0-450); Eosinophils Percent Auto 3.3 % (2-4); Hematocrit 36.6 % (36-46); Hemoglobin 11.5 g/dL (12.0-16.0); Lymphocytes Absolute Auto 2300 /uL (1100-4500); Lymphocytes Percent Auto 40.5 % (25-40); Mean Corpuscular HGB Conc 31.5 % (30-36); Mean Corpuscular Hemoglobin 25.8 PG (26-34); Monocytes Absolute Auto 500 /uL (0-900); Monocytes Percent Auto 8.8 % (3-14); Neutrophils Absolute Auto 2700 /uL (1500-7000); Neutrophils Percent Auto 46.4 % (50-75); Platelet Count 157 X10^3/uL (150-400); Red Blood Cell Count 4.47 X10^6/uL (4.0-5.2); Red Cell Distribution Width 13.9 % (11.6-14.8); White Blood Cell Count 5.8 X10^3/uL (4.5-11.0)
[2020-06-23 19:51] LABS: Alanine Aminotransferase 17 IU/L (<35); Albumin 4.3 g/dL (3.5-5.0); Albumin Globulin Ratio 1.9 (1.0-2.8); Alkaline Phosphatase 67 U/L (38-126); Aspartate Aminotransferase 26 IU/L (14-36); BUN Creatinine Ratio 23.3 (6-22); Bilirubin Total 0.3 mg/dL (0.2-1.3); Blood Urea Nitrogen 21 mg/dL (7-17); Calcium 9.7 mg/dL (8.4-10.2); Carbon Dioxide 31 mmol/L (22-32); Chloride 98 mmol/L (98-107); Estimated Glomerular Filt Rate > 60.0 mL/min (>60); Globulin 2.3 g/dL (1.7-4.1); Glucose 149 mg/dL (80-110); HEMOLYSIS < 15 (0-50); Potassium 3.4 mmol/L (3.4-5.1); Sodium 136 mmol/L (137-145); Total Protein 6.6 g/dL (6.3-8.2)
[2020-06-23 20:10] LABS: TSH w/ Reflex to FT4 0.25 uIU/mL (0.47-4.68)
[2020-06-23 20:47] LABS: Free T4, Direct Thyroxine 1.67 ng/dL (0.78-2.19)
== END ==
PROVIDERS: PCP Internal Medicine; Visit Provider Internal Medicine
DX: E03.9 Hypothyroidism, unspecified (principal); I10 Essential (primary) hypertension; D64.9 Anemia, unspecified
CPT/HCPCS: 80053; 84439; 84443; 85025

== ENCOUNTER → 2020-08-03 15:46 | Outpatient (CLI) | payer MEDICARE, SELFPAY ==
[2020-07-31 11:36] VITALS: BMI 42.3
--- NOTE | 2020-08-03 | DI.MG.S_ITS ---
BILATERAL DIGITAL SCREENING MAMMOGRAM 3D/2D WITH CAD: 08/03/2020 CLINICAL: Routine screening. Comparison is made to exam dated: 08/02/2019 [facility]. There are scattered fibroglandular elements in both breasts. Current study was also evaluated with a Computer Aided Detection (CAD) system. No significant masses, calcifications, or other findings are seen in either breast. There has been no significant interval change. IMPRESSION: NEGATIVE There is no mammographic evidence of malignancy. A 1 year screening mammogram is recommended. This exam was interpreted at Station ID: [id number]. NOTE: For mammograms, a report in lay terms will be sent to the patient. Approximately 15% of breast malignancies will not be visualized mammographically. In the management of a palpable breast mass, a negative mammogram must not discourage biopsy of a clinically suspicious lesion. Electronically Signed By: Bipin Georges acr/layne:08/03/2020 16:26:32 letter sent: Normal Exam ACR BI-RADS Category 1: Negative [id number]
--- NOTE | 2020-08-03 15:49 | DI.RAD.S_ITS ---
PROCEDURE: XR KUB INDICATIONS: kidney stones TECHNIQUE: One view of the abdomen acquired. COMPARISON: None. FINDINGS: Surgical changes and devices: None. Bowel: Bowel gas pattern is normal. Soft tissues: No suspicious abdominal calcifications. Visualized solid organ contours appear normal in size. Bones: No suspicious bony lesions. Spinal fixation hardware noted. IMPRESSION: No definite suspicious abdominal calcifications. Dictated by: Solomon Curtis M.D. on 08/03/2020 at 16:42 Approved by: Solomon Curtis M.D. on 08/03/2020 at 16:44
== END ==
PROVIDERS: PCP Internal Medicine; Referring Provider Specialist; Visit Provider Specialist
DX: Z12.31 Encounter for screening mammogram for malignant neoplasm of breast (principal); N20.0 Calculus of kidney
CPT/HCPCS: 74018; 77063; 77067

== ENCOUNTER 2020-08-21 17:43 | Emergency (ER) | payer MEDICARE, SELFPAY ==
[2020-07-31 11:36] VITALS: BMI 42.3
[2020-08-21 17:47] VITALS: BP 140/88; PULSE 112; RESP 20; TEMP 36.1; O2SAT 99
--- NOTE | 2020-08-21 17:59 | DI.RAD.S_ITS ---
PROCEDURE: XR CHEST 1V INDICATIONS: Suspected sepsis TECHNIQUE: One view of the chest was acquired. COMPARISON: [facility], CR, XR CHEST 1V, 10/01/2017, 12:59. FINDINGS: Surgical changes and devices: None. Lungs and pleura: Lungs are clear. No pleural effusions or pneumothorax. Mediastinum: Mediastinal contours appear normal. Heart size is normal. Bones and chest wall: No suspicious bony lesions. Overlying soft tissues appear unremarkable. IMPRESSION: No acute cardiopulmonary process demonstrated radiographically. Dictated by: Omer Tang M.D. on 08/21/2020 at 19:44 Approved by: Omer Tagn M.D. on 08/21/2020 at 19:44
[2020-08-21 18:30] LABS: Add Manual Diff / Slide Review NO; Basophils Absolute Auto 0 /uL (0-100); Basophils Percent Auto 0.7 % (0-2); Eosinophils Absolute Auto 100 /uL (0-450); Eosinophils Percent Auto 1.6 % (2-4); Hemoglobin 12.7 g/dL (12.0-16.0); Lymphocytes Absolute Auto 2700 /uL (1100-4500); Lymphocytes Percent Auto 44.1 % (25-40); Mean Corpuscular HGB Conc 32.7 % (30-36); Mean Corpuscular Hemoglobin 26.6 PG (26-34); Mean Corpuscular Volume 81.4 fL (80-100); Monocytes Absolute Auto 400 /uL (0-900); Monocytes Percent Auto 6.7 % (3-14); Neutrophils Absolute Auto 2900 /uL (1500-7000); Neutrophils Percent Auto 46.9 % (50-75); Platelet Count 185 X10^3/uL (150-400); Prothrombin Time 11.4 SECONDS (10.1-12.7); Red Blood Cell Count 4.79 X10^6/uL (4.0-5.2); Red Cell Distribution Width 16.2 % (11.6-14.8); White Blood Cell Count 6.2 X10^3/uL (4.5-11.0)
[2020-08-21 18:33] LABS: PTT Partial Thromboplastin Tim 31 SECONDS (26.4-36.2)
[2020-08-21 18:38] LABS: Lactate (Lactic Acid) 2.1 mmol/L (0.7-2.1)
[2020-08-21 18:39] LABS: Alanine Aminotransferase 20 IU/L (<35); Albumin 4.7 g/dL (3.5-5.0); Albumin Globulin Ratio 1.7 (1.0-2.8); Alkaline Phosphatase 76 U/L (38-126); Aspartate Aminotransferase 25 IU/L (14-36); BUN Creatinine Ratio 23.5 (6-22); Bilirubin Total 0.2 mg/dL (0.2-1.3); Blood Urea Nitrogen 19 mg/dL (7-17); Calcium 9.9 mg/dL (8.4-10.2); Carbon Dioxide 29 mmol/L (22-32); Chloride 96 mmol/L (98-107); Estimated Glomerular Filt Rate > 60.0 mL/min (>60); Globulin 2.7 g/dL (1.7-4.1); Glucose 180 mg/dL (80-110); HEMOLYSIS < 15 (0-50); Lipase 87 U/L (23-300); Sodium 137 mmol/L (137-145); Total Protein 7.4 g/dL (6.3-8.2)
[2020-08-21 18:55] LABS: Procalcitonin < 0.03 ng/mL (<0.5)
[2020-08-21 19:11] LABS: Bacteria Urine None Seen; RBC Urine None Seen (0-5/HPF)
[2020-08-21 19:27] LABS: Amorphous Sediment Urine 1+; Culture Indicated Urine Cult Not Indicated; Hyaline Casts Urine 5-10/LPF; Squamous Epithelial Cell Urine 0-1 /HPF (0-5/HPF); WBC Urine 0-1/HPF (0-5/HPF)
[2020-08-21 20:14] LABS: Reflexed Lactate in 2 Hours Y
--- NOTE | 2020-08-21 20:44 | ED.ABDPAIN ---
HPI - Abdominal Pain General Chief Complaint: Abdominal Pain Stated Complaint: Possible Kidney Infection, Sent From [facility] Time Seen by Provider: 08/21/20 19:06 Source: patient Mode of arrival: Ambulatory Limitations: no limitations History of Present Illness HPI narrative: 70-year-old female nonsmoker with history of hypertension, hyperlipidemia and kidney stones presents with a chief complaint of some bag pain in her back and dark urine for the past few weeks. She consulted the Urology office and was encouraged to present to the emergency department for evaluation. She's not dizzy or lightheaded. She denies fever or chills. She's had no chest pain, shortness of breath or abdominal pain. She has no N/V/D. She states this feels like prior kidney stones. She denies any recent injury or trauma. She denies any recent travel or exposure to persons known to be positive for COVID complaint: flank pain Onset (ago): week(s) Pain Consistency: constant Location: R flank Severity: mild Quality: aching Radiation: none Relieving factors: rest Exacerbating factors: movement Associated symptoms: denies other symptoms Related Data Home Medications Medication Instructions Recorded Confirmed benazepril [Lotensin] 20 mg PO DAILY 09/17/17 03/15/20 clotrimazole-betamethasone 1 applic TOPICAL BID 09/17/17 03/06/20 [Lotrisone] duloxetine 60 mg PO QPM 09/17/17 03/15/20 hydrochlorothiazide 50 mg PO DAILY 09/17/17 03/15/20 hydrocortisone-pramoxine 1 applic [place] BID PRN 09/17/17 03/06/20 [Analpram-HC] hydroxyzine pamoate 25 mg PO Q4H PRN 09/17/17 03/15/20 phenazopyridine [Pyridium] 200 mg PO TID PRN 09/17/17 03/15/20 sertraline [Zoloft] 100 mg PO DAILY 09/17/17 03/15/20 sumatriptan succinate [Imitrex] 50 mg PO Q2-4H PRN 09/17/17 03/15/20 omeprazole 20 mg PO QPM 10/01/17 03/15/20 potassium chloride 10 meq PO QPM 10/01/17 03/06/20 atorvastatin 20 mg PO QPM 03/06/20 03/15/20 fluticasone propionate [Flonase 1 spray INTRANASAL DAILY 03/06/20 03/15/20 Allergy Relief] ondansetron 4 mg PO BID PRN 03/06/20 03/15/20 tizanidine 4 - 8 mg PO BID PRN 03/06/20 03/15/20 Previous Rx's Medication Instructions Recorded Synthroid 125 mcg tablet 125 mcg PO DAILY #90 tab NS 08/26/18 nitrofurantoin macrocrystal 50 mg 50 mg PO BEDTIME #60 cap 02/10/20 capsule acetaminophen 650 mg PO Q6HR PRN #60 tab 03/17/20 docusate sodium [DOK] 100 mg PO BID #20 cap 03/17/20 naproxen 500 mg PO BID #60 tab 03/17/20 oxycodone 5 mg PO Q4H PRN #60 cap 03/17/20 lidocaine [Lidoderm] 1 patch TOP DAILY #15 each 08/21/20 Allergies Allergy/AdvReac Type Severity Reaction Status Date / Time mushroom [MUSHROOM] Allergy Severe 'CUTS OFF Verified 03/15/20 06:50 BREATHING' oxaprozin [OXAPROZIN] Allergy Mild RASH Verified 03/15/20 06:50 diphenhydramine AdvReac Severe PERSONALITY Verified 03/15/20 06:50 [DIPHENHYDRAMINE] CHANGE I TURN INTO AN AX KILLER trazodone [TRAZODONE] AdvReac Severe DIFFICULTY Verified 03/15/20 06:50 SLEEPING, MADE ME CRAZY pineapple [PINEAPPLE] AdvReac Mild Nausea Verified 03/15/20 06:50 Antispasmodics AdvReac Severe Muscle Uncoded 03/15/20 06:50 spasms Review of Systems Constitutional Constitutional: Denies chills, Denies fatigue, Denies fever(s), Denies frequent falls, Denies lethargy and Denies weakness Eyes Eyes: Denies change in vision, Denies eye discharge, Denies irritation and Denies loss of vision ENT Ears, Nose, Mouth, and Throat: Denies change in voice, Denies dizziness, Denies neck pain, Denies sore throat and Denies throat swelling Cardiovascular Cardiovascular: Denies chest pain, Denies irregular heart rhythm, Denies lightheadedness, Denies palpitations, Denies dyspnea, Denies dyspnea on exertion and Denies orthopnea Respiratory Respiratory: Denies cough, Denies dyspnea, Denies dyspnea on exertion and Denies wheezing Gastrointestinal Gastrointestinal: Denies abdominal pain, Denies change in bowel habits, Denies diarrhea, Denies nausea and Denies vomiting Musculoskeletal Musculoskeletal: Reports back pain, Denies neck pain and Denies numbness Integumentary/Breasts Skin/Breast: Denies pruritus, Denies erythema, Denies rash and Denies wounds Neurologic Neurologic: Denies behavioral changes, Denies confusion, Denies dizziness, Denies frequent falls, Denies loss of vision, Denies numbness and Denies weakness Psychiatric Psychiatric: Denies anxiety, Denies behavioral changes, Denies confusion, Denies depression, Denies homicidal ideation and Denies suicidal ideation Endocrine Endocrine: Denies fatigue, Denies flushing and Denies palpitations Hematologic/Lymphatic Hematologic/Lymphatic: Denies easy bruising Allergic/Immunologic Allergic/Immunologic: Denies urticaria, Denies throat swelling and Denies wheezing Patient History Medical History Arthritis Asthma Bone spur Bone spur of left foot Bruises easily Chronic heartburn Constipation Deviated septum Diabetes Dry skin GERD (gastroesophageal reflux disease) Hard of hearing Hemorrhoids Herniated disc History of nephrolithiasis History of UTI Hx of migraine headaches Hypertension Hypothyroid IBS (irritable bowel syndrome) Impaired vision in both eyes Impairment of balance Incontinence Kidney stones Lower back pain Lower urinary tract symptoms (LUTS) Major depressive disorder Migraine Numbness and tingling of both legs Numbness in both legs Obesity Post-menopausal Postmenopausal atrophic vaginitis Rheumatoid arthritis Rosacea Sinus headache SOB (shortness of breath) on exertion Thyroid disease Urinary tract infection Vertigo Surgical History H/O detached retina repair H/O laminectomy History of bilateral knee replacement History of eye surgery History of hysterectomy History of spinal fusion (10/01/17) Hx of LASIK Hx of nasal septoplasty Social History household members: none Smoking Status: Never smoker alcohol intake: current Smoking Status: Never smoker alcohol intake frequency: holidays/special occasions only Substance Use Type: does not use Exam Narrative Exam Narrative: GENERAL: [70] year old patient appears stated age. Well-nourished, well-developed patient, in mild distress. HEAD: Atraumatic. Normocephalic. EYES: Pupils equal round and reactive. Extraocular motions intact. No scleral icterus. No injection or drainage. ENT: Nose without bleeding, purulent drainage. Throat without erythema, tonsillar hypertrophy or exudate. Airway patent. NECK: Trachea midline. Non tender CARDIOVASCULAR: Regular rate and rhythm without murmurs, gallops, or rubs. RESPIRATORY: Clear to auscultation. Breath sounds equal bilaterally. No wheezes, rales, or rhonchi. GASTROINTESTINAL: Abdomen soft, right upper quadrant pain tender to palpate, nondistended. EXTREMITIES: No edema or joint tenderness. BACK: Mild right upper back pain to palpation without crepitance, fluctuance, erythema. No saddle anesthesia. Bilateral lower extremities 5/5 strength. Patellar reflexes 1+ bilaterally NEURO: AOx3. SKIN: No rash or erythema of visible areas Initial Vital Signs Initial Vital Signs: Vital Signs Temperature 96.9 F L 08/21/20 17:47 Pulse Rate 112 H 08/21/20 17:47 Respiratory Rate 20 08/21/20 17:47 Blood Pressure 140/88 08/21/20 17:47 Pulse Oximetry 99 08/21/20 17:47 Course Orders Ordered: ED Orders 08/21/20 20:57 US abdomen limited Stat 08/21/20 21:48 CT kidney ureter bladder (KUB) Stat Discontinued Medications Hydromorphone HCl (Hydromorphone 1 Mg Inj) 1 mg IV NOW ONE Stop: 08/21/20 20:58 Last Admin: 08/21/20 21:17 Dose: 1 mg Documented by: KEVIN Sodium Chloride (Normal Saline 0.9%) 1,000 mls @ 1,000 mls/hr IV BOLUS ONE Stop: 08/21/20 21:56 Last Infusion: 08/21/20 23:17 Dose: 0 mls/hr Documented by: Admin: 08/21/20 21:17 Dose: 1,000 mls/hr Documented by: KEVIN Lidocaine (Lidocaine Patch 1 Each Adh..Patch) 1 each TOP NOW ONE Stop: 08/21/20 23:17 Last Admin: 08/21/20 23:22 Dose: 1 each Documented by: KEVIN Ondansetron HCl (Ondansetron 4 Mg/2 Ml Inj) 4 mg IV Q4HR PRN PRN Reason: Nausea And Vomiting Last Admin: 08/21/20 21:17 Dose: 4 mg Documented by: KEVIN Vital Signs Vital signs: Vital Signs - 8 hr 08/21/20 23:25 Pulse Rate 89 Respiratory Rate 18 Blood Pressure 130/74 Pulse Oximetry 97 MDM - Abdominal Pain Lab Data Result diagrams: 08/21/20 18:09 08/21/20 18:09 Labs: Lab Results 08/21/20 08/21/20 08/21/20 Range/Units 18:09 18:09 18:09 WBC 6.2 (4.5-11.0) X10^3/uL RBC 4.79 (4.0-5.2) X10^6/uL Hgb 12.7 (12.0-16.0) g/dL Hct 39.0 (36-46) % MCV 81.4 (80-100) fL MCH 26.6 (26-34) PG MCHC 32.7 (30-36) % RDW 16.2 H (11.6-14.8) % Plt Count 185 (150-400) X10^3/uL Neut % (Auto) 46.9 L (50-75) % Lymph % (Auto) 44.1 H (25-40) % [place] % (Auto) 6.7 (3-14) % Eos % (Auto) 1.6 L (2-4) % Baso % (Auto) 0.7 (0-2) % Neut # (Auto) 2900 (5707-4964) /uL Lymph # (Auto) 2700 (1382-8164) /uL [place] # (Auto) 400 (0-900) /uL Eos # (Auto) 100 (0-450) /uL Baso # (Auto) 0 (0-100) /uL PT 11.4 (10.1-12.7) SECONDS INR 1.0 (0.9-1.3) APTT 31 (26.4-36.2) SECONDS Sodium 137 (137-145) mmol/L Potassium 3.0 L (3.4-5.1) mmol/L Chloride 96 L (98-107) mmol/L Carbon Dioxide 29 (22-32) mmol/L BUN 19 H (7-17) mg/dL Creatinine 0.81 (0.52-1.04) mg/dL Estimated GFR > 60.0 (>60) mL/min BUN/Creatinine Ratio 23.5 H (6-22) Glucose 180 H (80-110) mg/dL Lactate (0.7-2.1) mmol/L Calcium 9.9 (8.4-10.2) mg/dL Total Bilirubin 0.2 (0.2-1.3) mg/dL AST 25 (14-36) IU/L ALT 20 (<35) IU/L Alkaline Phosphatase 76 (38-126) U/L Total Protein 7.4 (6.3-8.2) g/dL Albumin 4.7 (3.5-5.0) g/dL Globulin 2.7 (1.7-4.1) g/dL Albumin/Globulin Ratio 1.7 (1.0-2.8) Lipase 87 (23-300) U/L Procalcitonin < 0.03 (<0.5) ng/mL Urine RBC (0-5/HPF) Urine WBC (0-5/HPF) Ur Squamous Epith Cells (0-5/HPF) Amorphous Sediment Urine Bacteria (None) Hyaline Casts (None) Ur Culture Indicated? 08/21/20 08/21/20 08/21/20 Range/Units 18:09 18:17 20:50 WBC (4.5-11.0) X10^3/uL RBC (4.0-5.2) X10^6/uL Hgb (12.0-16.0) g/dL Hct (36-46) % MCV (80-100) fL MCH (26-34) PG MCHC (30-36) % RDW (11.6-14.8) % Plt Count (150-400) X10^3/uL Neut % (Auto) (50-75) % Lymph % (Auto) (25-40) % [place] % (Auto) (3-14) % Eos % (Auto) (2-4) % Baso % (Auto) (0-2) % Neut # (Auto) (9670-0356) /uL Lymph # (Auto) (0091-4248) /uL [place] # (Auto) (0-900) /uL Eos # (Auto) (0-450) /uL Baso # (Auto) (0-100) /uL PT (10.1-12.7) SECONDS INR (0.9-1.3) APTT (26.4-36.2) SECONDS Sodium (137-145) mmol/L Potassium (3.4-5.1) mmol/L Chloride (98-107) mmol/L Carbon Dioxide (22-32) mmol/L BUN (7-17) mg/dL Creatinine (0.52-1.04) mg/dL Estimated GFR (>60) mL/min BUN/Creatinine Ratio (6-22) Glucose (80-110) mg/dL Lactate 2.1 0.9 (0.7-2.1) mmol/L Calcium (8.4-10.2) mg/dL Total Bilirubin (0.2-1.3) mg/dL AST (14-36) IU/L ALT (<35) IU/L Alkaline Phosphatase (38-126) U/L Total Protein (6.3-8.2) g/dL Albumin (3.5-5.0) g/dL Globulin (1.7-4.1) g/dL Albumin/Globulin Ratio (1.0-2.8) Lipase (23-300) U/L Procalcitonin (<0.5) ng/mL Urine RBC None seen (0-5/HPF) Urine WBC 0-1/hpf (0-5/HPF) Ur Squamous Epith Cells 0-1 /hpf (0-5/HPF) Amorphous Sediment 1+ Urine Bacteria None seen (None) Hyaline Casts 5-10/lpf (None) Ur Culture Indicated? Cult not indicated Point of care testing: Urine Dip Bedside Urine Glucose Negative Bedside Urine Bilirubin +++ 4 Bedside Urine Ketone - Negative Urine Specific [place] 1.030 Bedside Urine Occult Blood - Negative Bedside Urine pH 6.0 Bedside Urine Protein - Negative Bedside Urine Urobilinogen - Negative Bedside Urine Nitrite - Negative Bedside Urine Leukocytes - Negative Esterase Imaging Data US - abdomen: Radiologist's Impression: [address] [place] [id number] ReportSigned Patient: China Pereira LMR#: [id number]: 2Acct:[id number]/Sex: 70 / FDate of Service: 08/21/20Lo: EDAccession Number: [id number] Procedure: US abdomen limited Ordering Provider: Ramesh Perry D.O. PROCEDURE: US ABDOMEN LIMITED INDICATIONS: RUQ PAIN TECHNIQUE: Real-time focused scanning was performed of the abdomen, with image documentation. COMPARISON: [facility], MR, MR LUMBAR SPINE WO CON, 11/27/2018, 14:38. FINDINGS: Normally distended gallbladder. Severe hepatic steatosis. Simple cyst in the left hepatic lobe measuring 2.2 centimeters. Normal caliber biliary ducts. IMPRESSION: Severe hepatic steatosis. No findings of cholecystitis. Dictated by: Omer Tang M.D. on 08/21/2020 at 21:30 Approved by: Omer Tang M.D. on 08/21/2020 at 21:31 CT scan - abdomen/pelvis: Radiologist's Impression: Mildly enlarged fatty liver. No bowel obstruction or inflammation. No obstructive uropathy MDM Narrative Medical decision making narrative: Multiple etiologies for patient's symptoms considered including: [Kidney stone versus pyelonephritis versus gallbladder disease versus musculoskeletal versus other] Patient's symptoms improved over duration of stay with above-stated therapies. Findings and discharge diagnosis discussed with patient/family followed by verbalization of understanding Return precautions discussed with patient/family whom verbalize understanding. Discharge Plan Departure Patient Disposition: Home Clinical Impression: Acute right flank pain Instructions: DI for Abdominal Pain-Adult Activity Restrictions/Additional Instructions: *You have been diagnosed with [right upper back and side pain. Your labs are very reassuring except for a slightly low potassium. Your ultrasound and CT scan are very reassuring.] *What to do: *Take medications as directed *Follow up with your primary care provider in 2-3 days, call for an appointment. Let them know you were seen in the Emergency Department and that we ask that you be seen in follow up *Return to ER if you should have any new, worsening or concerning symptoms, such as [worsening pain, fever greater than 101 F, persistent vomiting, chest pain or shortness of breath, loss of control of bowel or bladder or other bothersome symptoms] Prescriptions: New lidocaine [Lidoderm] 5 % adhesive patch,medicated 1 patch TOP DAILY Qty: 15 RF: 0 No Action levothyroxine [Synthroid] 125 mcg tablet 125 mcg PO DAILY Qty: 90 RF: 0 nitrofurantoin macrocrystal 50 mg capsule 50 mg PO BEDTIME Qty: 60 RF: 0 hydrochlorothiazide 50 mg Tablet 50 mg PO DAILY RF: 0 phenazopyridine [Pyridium] 200 mg Tablet 200 mg PO TID PRN (Reason: bladder/kidney stone problems) RF: 0 hydroxyzine pamoate 50 mg Capsule 25 mg PO Q4H PRN (Reason: Muscle Spasm) RF: 0 clotrimazole-betamethasone [Lotrisone] 1-0.05 % Cream 1 applic TOPICAL BID RF: 0 benazepril [Lotensin] 20 mg Tablet 20 mg PO DAILY RF: 0 duloxetine 60 mg Capsule,Delayed Release(Dr/Ec) 60 mg PO QPM RF: 0 sertraline [Zoloft] 100 mg Tablet 100 mg PO DAILY RF: 0 sumatriptan succinate [Imitrex] 50 mg Tablet 50 mg PO Q2-4H PRN (Reason: Headache) RF: 0 hydrocortisone-pramoxine [Analpram-HC] 2.5-1 % Cream 1 applic [place] BID PRN (Reason: itchy,bleeding hemorroids) RF: 0 omeprazole 10 mg Capsule,Delayed Release(Dr/Ec) 20 mg PO QPM RF: 0 potassium chloride 10 mEq Tablet Extended Release 10 meq PO QPM RF: 0 atorvastatin 20 mg Tablet 20 mg PO QPM RF: 0 ondansetron 4 mg Tablet,Disintegrating 4 mg PO BID PRN (Reason: Nausea) RF: 0 fluticasone propionate [Flonase Allergy Relief] 50 mcg/actuation [place],Suspension 1 spray INTRANASAL DAILY RF: 0 tizanidine 4 mg Capsule 4 - 8 mg PO BID PRN (Reason: muscle spasms) RF: 0 naproxen 500 mg tablet 500 mg PO BID Qty: 60 RF: 0 acetaminophen 325 mg Tablet 650 mg PO Q6HR PRN (Reason: Pain, Mild (1-3)) Qty: 60 RF: 0 docusate sodium [DOK] 100 mg Capsule 100 mg PO BID Qty: 20 RF: 0 oxycodone 5 mg capsule 5 mg PO Q4H PRN (Reason: pain) Qty: 60 RF: 0 Referrals: Mak August MD [Primary Care Provider] -
--- NOTE | 2020-08-21 20:57 | DI.US.S_ITS ---
PROCEDURE: US ABDOMEN LIMITED INDICATIONS: RUQ PAIN TECHNIQUE: Real-time focused scanning was performed of the abdomen, with image documentation. COMPARISON: [facility], MR, MR LUMBAR SPINE WO CON, 11/27/2018, 14:38. FINDINGS: Normally distended gallbladder. Severe hepatic steatosis. Simple cyst in the left hepatic lobe measuring 2.2 centimeters. Normal caliber biliary ducts. IMPRESSION: Severe hepatic steatosis. No findings of cholecystitis. Dictated by: Omer Tang M.D. on 08/21/2020 at 21:30 Approved by: Omer Tang M.D. on 08/21/2020 at 21:31
[2020-08-21 21:16] LABS: Lactate 2HR (Lactic Acid Rflx) 0.9 mmol/L (0.7-2.1)
[2020-08-21] MEDS: ONDANSETRON 4 MG/2 ML INJ IV (21:17)
[2020-08-21] MEDS: HYDROMORPHONE 1 MG INJ IV (21:17)
[2020-08-21] MEDS: SODIUM CHLORIDE 0.9% 1,000 ML 1000 ML IV (21:17)
--- NOTE | 2020-08-21 21:48 | DI.CT.S_ITS ---
PROCEDURE: CT KIDNEY URETER BLADDER (KUB) INDICATIONS: right flank pain TECHNIQUE: Noncontrast 5 mm thick sections acquired from the diaphragms to the symphysis. 5 mm thick coronal and sagittal reformats were then performed. For radiation dose reduction, the following was used: automated exposure control, adjustment of mA and/or kV according to patient size. COMPARISON: None. FINDINGS: Image quality: Portions of the abdomen are suboptimally evaluated secondary to metallic streak artifact from spinal fusion hardware. Lung bases: Lung bases are clear. Heart size is normal. Urinary system: Both kidneys are normal in size. No kidney stones. No hydronephrosis or perinephric fat stranding. Both ureters appear non-dilated throughout their expected courses. Bladder wall thickness is normal; no calcified bladder stones. Other solid organs: Liver is enlarged with steatosis. Low-attenuation focus in the left lobe measuring 12 mm is present consistent with cyst. Gallbladder is unremarkable. Pancreas is normal in contours. Spleen is normal in size. No adrenal nodules. Peritoneum and bowel: Unenhanced bowel loops demonstrate normal wall thickness and caliber. No free fluid or air. Nodes and vessels: No retroperitoneal or mesenteric adenopathy by size criteria. Aorta and inferior vena cava are normal in caliber. Abdominal wall: Fat containing ventral hernia is present. Rectus diastasis measures 15 mm. Pelvis: No free pelvic fluid. No inguinal hernias or adenopathy. Bones: No suspicious bony lesions. No vertebral body compression fractures. IMPRESSION: 1. Hepatomegaly with steatosis and left hepatic cysts. 2. No nephro or ureterolithiasis. No bladder calculi. No obstruction The above findings are concordant with preliminary report. Dictated by: Yen Long M.D. on 08/22/2020 at 8:17 Approved by: Yen Long M.D. on 08/22/2020 at 8:20
[2020-08-21] MEDS: LIDOCAINE PATCH 1 EACH ADH..PATCH TOP (23:22)
[2020-08-21 23:25] VITALS: BP 130/74; PULSE 89; RESP 18; O2SAT 97
== END 2020-08-21 23:26 | disposition home or self-care (01) ==
PROVIDERS: Emergency Provider Emergency Medicine; PCP Internal Medicine
DX: R10.11 Right upper quadrant pain (principal)
CPT/HCPCS: 36415; 71045; 74176; 76705; 80053; 81003; 81015; 83605; 83690; 84145; 85025; 85610; 85730; 87040; 96361; 96374; 96375; 99284; J1170; J2405

== ENCOUNTER → 2020-10-13 09:16 | Outpatient (CLI) | payer MEDICARE, SELFPAY ==
[2020-08-31 13:07] VITALS: BMI 42.3
[2020-10-13 10:55] LABS: COVID19 -Nasal RAPID Negative (Negative)
== END ==
PROVIDERS: PCP Internal Medicine; Visit Provider Surgery
DX: Z20.822 Contact with and (suspected) exposure to COVID-19 (principal)
CPT/HCPCS: 87635; C9803

== ENCOUNTER 2020-10-16 08:03 | Day surgery (SDC) | payer MEDICARE, SELFPAY ==
[2020-08-31 13:07] VITALS: BMI 42.3
[2020-10-16] VITALS (7 sets, daily range): BP systolic 150–185; BP diastolic 83–119; PULSE 82–94; RESP 11–16; TEMP 36.3–36.6; O2SAT 95–99; BMI 39.8
[2020-10-16] MEDS: LACTATED RINGERS 1,000 ML 200 ML IV (08:37)
--- NOTE | 2020-10-16 09:00 | SUR.PREOP ---
Dr. Gomez informed of BP prior to starting previous procedure. Will treat in the room
--- NOTE | 2020-10-16 09:21 | PM.HP.1 ---
History of Present Illness History of Present Illness Date Patient Seen: 10/16/20 Time Patient Seen: 09: Chief complaint: SDC Narrative: The patient presents for colorectal sreening. Previous colonoscopy was 20 years ago there were some benign polyps removed.. No personal or family history of colon cancer. On further history denies any recent gastrointestinal symptoms. No nausea, vomiting, abdominal pain, loss of appetite, unexplained weight loss, change in bowel habits, diarrhea, constipation, melena, hematochezia, or bright red blood per rectum. Patient History Medical History Arthritis Asthma Bone spur Bone spur of left foot Bruises easily Chronic heartburn Constipation Deviated septum Diabetes Dry skin GERD (gastroesophageal reflux disease) Hard of hearing Hemorrhoids Herniated disc History of nephrolithiasis History of UTI Hx of migraine headaches Hypertension Hypothyroid IBS (irritable bowel syndrome) Impaired vision in both eyes Impairment of balance Incontinence Kidney stones Lower back pain Lower urinary tract symptoms (LUTS) Major depressive disorder Migraine Numbness and tingling of both legs Numbness in both legs Obesity Post-menopausal Postmenopausal atrophic vaginitis Rheumatoid arthritis Rosacea Sinus headache SOB (shortness of breath) on exertion Thyroid disease Urinary tract infection Vertigo Surgical History H/O detached retina repair H/O foot surgery H/O laminectomy History of bilateral knee replacement History of eye surgery History of hysterectomy History of spinal fusion (10/01/17) Hx of LASIK Hx of nasal septoplasty Family & Social History Social History: household members none Tobacco & Substance use: Smoking Status Never smoker alcohol intake current alcohol intake frequency holiday/special occasion Substance Use Type does not use Meds Home Medications and Allergies Home Medications Medication Instructions Recorded Confirmed Type benazepril [Lotensin] 20 mg PO DAILY 09/17/17 10/16/20 History clotrimazole-betamethasone 1 applic TOPICAL BID 09/17/17 10/16/20 History [Lotrisone] duloxetine 60 mg PO QPM 09/17/17 10/16/20 History hydrochlorothiazide 50 mg PO DAILY 09/17/17 10/16/20 History hydrocortisone-pramoxine 1 applic NE BID PRN 09/17/17 10/16/20 History [Analpram-HC] hydroxyzine pamoate 25 mg PO Q4H PRN 09/17/17 10/16/20 History phenazopyridine [Pyridium] 200 mg PO TID PRN 09/17/17 10/16/20 History sertraline [Zoloft] 100 mg PO DAILY 09/17/17 10/16/20 History sumatriptan succinate [Imitrex] 50 - 100 mg PO Q2-4H PRN 09/17/17 10/16/20 History omeprazole 20 mg PO QPM 10/01/17 10/16/20 History potassium chloride 10 meq PO QPM 10/01/17 10/16/20 History Synthroid 125 mcg tablet 125 mcg PO DAILY #90 tab NS 08/26/18 10/16/20 Rx atorvastatin 20 mg PO QPM 03/06/20 10/16/20 History fluticasone propionate [Flonase 1 spray INTRANASAL DAILY 03/06/20 10/16/20 History Allergy Relief] ondansetron 4 mg PO BID PRN 03/06/20 10/16/20 History tizanidine 4 - 8 mg PO BID PRN 03/06/20 10/16/20 History lidocaine [Lidoderm] 1 patch TOP DAILY #15 each 08/21/20 10/16/20 Rx acetaminophen-codeine 1 - 2 tab PO DAILY MDD Sinus 10/16/20 10/16/20 History Headache doxycycline monohydrate 50 mg PO DAILY 10/16/20 10/16/20 History etodolac 500 mg PO BID 10/16/20 10/16/20 History hydrocodone-acetaminophen 1 tab PO SEEINSTR PRN 10/16/20 10/16/20 History loratadine [Claritin] 10 mg PO DAILY 10/16/20 10/16/20 History Allergies Allergy/AdvReac Type Severity Reaction Status Date / Time mushroom [MUSHROOM] Allergy Severe 'CUTS OFF Verified 10/16/20 08:43 BREATHING' oxaprozin [OXAPROZIN] Allergy Mild RASH Verified 10/16/20 08:43 diphenhydramine AdvReac Severe PERSONALITY Verified 10/16/20 08:43 [DIPHENHYDRAMINE] CHANGE I TURN INTO AN AX KILLER trazodone [TRAZODONE] AdvReac Severe DIFFICULTY Verified 10/16/20 08:43 SLEEPING, MADE ME CRAZY pineapple [PINEAPPLE] AdvReac Mild Nausea Verified 10/16/20 08:43 Antispasmodics AdvReac Severe Muscle Uncoded 10/12/20 14:13 spasms Review of Systems Review of Systems ROS: Yes All systems reviewed with the patient and are negative except as otherwise documented Exam Vital Signs (past 8 hours): - 10/16/20 08:20 10/16/20 08:25 Temperature 97.6 F Pulse Rate 94 H Respiratory Rate 16 Blood Pressure 185/119 H 161/114 H Pulse Oximetry 95 Oxygen Delivery Method Room Air Narrative Exam Narrative: GENERAL well-developed adult female, no acute distress HEENT-no scleral icterus, hearing intact NECK-no JVD, trachea midline CVS- regular rate, no peripheral edema RESP-unlabored respiratory effort, no audible wheezing GI-soft, nontender nondistended MSK-no cyanosis or clubbing, extremities without deformity SKIN-warm, dry NEURO-alert and oriented, no focal deficits PYSCH-Appropriate mood and affect Assessment & Plan Assessment & Plan narrative: The patient requires colorectal screening and colonoscopy is recommended. Technical details were discussed. Risks, benefits, alternatives explained. Risks including but not limited to myocardial infarction, aspiration, bleeding, pain, missed lesion, incomplete examination, need for further radiographic studies, colonic perforation, and need for major abdominal surgery were discussed. All questions were answered to their satisfaction, and they are in agreement with this plan.
[2020-10-16] MEDS: fentaNYL 250 MCG/5 ML INJ IV (09:36)
[2020-10-16] MEDS: MIDAZOLAM 5 MG/5 ML VIAL IV (09:36)
--- NOTE | 2020-10-16 09:52 | PM.OP.ENDO ---
Operative Date/Time/Diagnoses Date of procedure: 10/16/20 Time of procedure: 09:52 Pre-op diagnosis: Screening colonoscopy Post-op diagnosis: same Procedure & Clinicians Study performed: Colonoscopy Same procedure as scheduled: Yes Indications: Screening colonoscopy Surgeon: Coy Gomez Procedure Notes Procedure in detail: Medications: Conscious sedation using 6 mg IV midazolam and 200 mcg IV of fentanyl The history and physical was performed/updated and the patient is ASA class is 3. The procedure was discussed in detail with the patient. Potential risks complications including infection, bleeding, missed diagnosis, perforation, need for surgery, and were explained. Their questions were answered and informed consent was obtained. Patient was brought to the procedure room and placed standard monitoring equipment. The patient's vital signs were monitored continuously throughout the entire procedure. Prior to starting time-out was performed. The patient was placed in the left lateral recumbent position. Procedural sedation was administered. Examination began with a thorough inspection of the perianal area there was no evidence of fissures, fistulae, external hemorrhoids or cutaneous malignancy. The colonoscopy scope was then placed into the anal canal and was advanced to the cecum, which was identified by the ileocecal valve, the appendiceal orifice and the confluence of the taenia. The scope was then slowly withdrawn examining colon thoroughly in all directions, irrigating it of any residual stool. 1. No masses polyps 2. Sigmoid diverticulosis 3. Grade 1 internal hemorrhoids The patient tolerated the procedure well. They will be discharged once criteria are met. The prep was of good/excellent quality. The withdrawl time was 7minutes. The sedation time was 24 minutes. Specimen(s): none sent Complications: none Impression: Normal colonoscopy Post-procedure Recommendations: Colonscopy in 10 years Disposition: same day surgery
== END 2020-10-16 10:36 | disposition home or self-care (01) ==
PROVIDERS: PCP Internal Medicine; Referring Provider Internal Medicine; Visit Provider Surgery
PROC: 0DJD8ZZ Inspection of Lower Intestinal Tract, Via Natural or Artificial Opening Endoscopic (ICD-10-PCS; CPT 45378; principal; 2020-10-16 09:15)
DX: Z12.11 Encounter for screening for malignant neoplasm of colon (principal); Z86.010 Personal history of colon polyps; K57.30 Diverticulosis of large intestine without perforation or abscess without bleeding; K64.0 First degree hemorrhoids
CPT/HCPCS: G0105; 99152; J2250; J3010

== ENCOUNTER → 2021-02-21 15:03 | Outpatient (CLI) | payer MEDICARE, SELFPAY ==
[2020-08-31 13:07] VITALS: BMI 42.3
--- NOTE | 2021-02-21 | DI.CT.S_ITS ---
PROCEDURE: CT LUMBAR SPINE WO CON INDICATIONS: Spinal stenosis, lumbar region without neurogenic TECHNIQUE: Noncontrast 3 mm thick sections acquired from the T12 level to the sacrum. Sagittal and coronal reformats were constructed. For radiation dose reduction, the following was used: automated exposure control. COMPARISON: [facility], CR, XR LUMBAR SPINE 2 OR 3 VIEWS, 01/30/2021, 15:40. [facility], CR, XR LUMBAR SPINE 2 OR 3 VIEWS, 10/03/2020, 15:11. [facility], CT, CT KIDNEY URETER BLADDER (KUB), 08/21/2020, 22:02. [facility], MR, MR LUMBAR SPINE WO CON, 11/27/2018, 14:38. FINDINGS: Image quality: Excellent. Bones: No acute vertebral body compression fractures. No suspicious lytic or blastic bony lesions. No pars defects. Mild levoconvex scoliotic curvature is noted. No focal AP alignment abnormality is seen. Postoperative changes are seen, with bilateral pedicle screws at the L2 through L5 levels. The screws appear well placed. Vertical fixation rods are seen. Disc spacers are seen throughout the fused region. No findings of hardware failure or hardware loosening are seen. There has been removal of portions of the posterior elements. Bone grafting material is noted. T12-L1: Within normal limits. L1-L2: No significant abnormality is seen. L2-L3: Zmus-da-ifuavkra disc bulge is seen. Mild bilateral neural foraminal narrowing can be seen. No central canal narrowing is seen. L3-L4: Mild generalized disc bulge is seen. No significant neural foraminal narrowing can be seen. The central canal is widely patent. L4-L5: Mild generalized disc bulge is seen. There is moderate left-sided and mild right-sided neural foraminal narrowing seen. No significant central canal narrowing is seen. L5-S1: The disc height is well preserved. Mild generalized disc bulge is seen. At least moderate facet hypertrophy is seen. There is mild to mild left-sided and no significant right-sided neural foraminal narrowing seen. No significant central canal narrowing is seen. Soft tissues: No retroperitoneal masses or hematomas. Visualized aorta is normal in caliber. A normal appendix is incidentally noted. This patient is status post hysterectomy. No adnexal masses are seen. IMPRESSION: L2 through L5 hardware seen, without focal abnormality identified. Multiple levels of degenerative change are seen, which appear progressed at L5-S1, yet are otherwise similar to the 2019 MRI examination. Incidental note is made of: Normal appendix Hysterectomy Dictated by: Juan Bowman M.D. on 02/21/2021 at 16:22 Approved by: Juan Bowman M.D. on 02/21/2021 at 16:27
== END ==
PROVIDERS: PCP Internal Medicine; Referring Provider Orthopaedic Surgery Orthopaedic Surgery of the Spine; Visit Provider Orthopaedic Surgery Orthopaedic Surgery of the Spine
DX: M48.061 Spinal stenosis, lumbar region without neurogenic claudication (principal)
CPT/HCPCS: 72131

== ENCOUNTER → 2021-09-06 11:39 | Outpatient (CLI) | payer MEDICARE, SELFPAY ==
[2020-08-31 13:07] VITALS: BMI 42.3
[2021-09-06 12:09] LABS: Add Manual Diff / Slide Review NO; Basophils Absolute Auto 100 /uL (0-100); Basophils Percent Auto 1.3 % (0-2); Eosinophils Absolute Auto 200 /uL (0-450); Eosinophils Percent Auto 3.6 % (2-4); Hematocrit 30.5 % (36-46); Hemoglobin 9.8 g/dL (12.0-16.0); Lymphocytes Absolute Auto 3200 /uL (1100-4500); Lymphocytes Percent Auto 50.8 % (25-40); Mean Corpuscular Hemoglobin 25.4 PG (26-34); Mean Corpuscular Volume 79.2 fL (80-100); Monocytes Absolute Auto 500 /uL (0-900); Monocytes Percent Auto 7.3 % (3-14); Neutrophils Absolute Auto 2300 /uL (1500-7000); Platelet Count 142 X10^3/uL (150-400); Red Blood Cell Count 3.85 X10^6/uL (4.0-5.2); Red Cell Distribution Width 15.3 % (11.6-14.8); White Blood Cell Count 6.2 X10^3/uL (4.5-11.0)
[2021-09-06 12:24] LABS: BUN Creatinine Ratio 28.3 (6-22); Blood Urea Nitrogen 28 mg/dL (7-17); Calcium 8.9 mg/dL (8.4-10.2); Carbon Dioxide 28 mmol/L (22-32); Chloride 100 mmol/L (98-107); Estimated Glomerular Filt Rate 55.5 mL/min (>60); Glucose 118 mg/dL (80-110); HEMOLYSIS < 15 (0-50); Potassium 3.9 mmol/L (3.4-5.1); Sodium 136 mmol/L (137-145)
== END ==
PROVIDERS: PCP Internal Medicine; Referring Provider Orthopaedic Surgery Orthopaedic Surgery of the Spine; Visit Provider Orthopaedic Surgery Orthopaedic Surgery of the Spine
DX: Z01.818 Encounter for other preprocedural examination (principal); Z01.812 Encounter for preprocedural laboratory examination
CPT/HCPCS: 36415; 80048; 85025; 93005; 93010

== ENCOUNTER → 2021-10-01 11:51 | Outpatient (CLI) | payer MEDICARE, SELFPAY ==
[2020-08-31 13:07] VITALS: BMI 42.3
[2021-10-01 14:29] LABS: COVID19 -Nasal RAPID Negative (Negative)
== END ==
PROVIDERS: PCP Internal Medicine; Visit Provider Family Medicine Sleep Medicine
DX: Z20.822 Contact with and (suspected) exposure to COVID-19 (principal)
CPT/HCPCS: 87635; C9803

== ENCOUNTER 2021-10-03 07:21 | Inpatient (IN) | payer MEDICARE, SELFPAY ==
[2020-08-31 13:07] VITALS: BMI 42.3
[2021-10-02 11:53] VITALS: BMI 38.9
[2021-10-03] VITALS (27 sets, daily range): BP systolic 130–199; BP diastolic 63–107; PULSE 72–98; RESP 2–18; TEMP 35.6–37.3; O2SAT 94–100; BMI 38.9
--- NOTE | 2021-10-03 | DI.RAD.S_ITS ---
PROCEDURE: XR LUMBAR SPINE 2-3V INDICATIONS: L1-5 TLIF TECHNIQUE: 3 views of the lumbar spine were acquired. COMPARISON: [facility], CR, XR LUMBAR SPINE 2-3V, 03/15/2020, 9:41. FINDINGS: Bones: Intraoperative fluoroscopic views demonstrate multilevel laminectomy, discectomy and pedicular screw and lillian fixation. Soft tissues: Overlying bowel gas pattern is normal. No suspicious soft tissue calcifications. IMPRESSION: Multilevel laminectomy, discectomy and pedicular screw and lillian fixation. Dictated by: Bipin Georges M.D. on 10/03/2021 at 13:49 Approved by: Biipn Georges M.D. on 10/03/2021 at 13:50
[2021-10-03] MEDS: LACTATED RINGERS 1,000 ML 42 ML IV (08:33)
[2021-10-03] MEDS: CEFAZOLIN 2 GM/20 ML SYRINGE IV ×2 (09:00→21:16)
[2021-10-03] MEDS: ACETAMINOPHEN IV 1,000 MG/100 ML VIAL 400 MG IV (10:30)
[2021-10-03] MEDS: BUPIVACAINE LIPOSOME 266 MG/20 ML VIAL INJ (12:27)
[2021-10-03] MEDS: BUPIVACAINE 0.25% (PF) 30 ML, EPINEPHrine 0.3 MG INJ (12:27)
--- NOTE | 2021-10-03 12:55 | PM.OP.1 ---
Operative Date/Time/Diagnoses Date of procedure: 10/03/21 Time of procedure: 08:45 Pre-op diagnosis: 1. L2-3 hardware loosening 2. Previous L2-5 fusion with pseudoarthrosis at L2-3 level 3. L1-2 spinal stenosis with radiculopathy Post-op diagnosis: same Procedure & Clinicians Procedure: 1. L1-2 Postero-lateral and posterior interbody fusion 2. L1-2 interbody cage placement. 3. L1-2 decompressive laminectomy with bilateral facetecomies 4. L1-2 L2-3 L3-4 L4-5 Posterior segmental instrumentation 5. L2-5 posterior segmental hardware removal 6. L2-3 L3-4 exploration of fusion with left hemilaminectomy 7. L2-3 posterolateral fusion 8. New Point of bone marrow from iliac crest 9. Utilization of microsurgical technique and operating microscope Same procedure as scheduled: Yes Indications: Patient has been having chronic back pain and worsening lumbar radiculopathy. Patient's recent x-ray showed L2 pedicle screw fracture with patient's correlating symptoms with both back pain and radiculopathy. Patient failed multiple conservative management with worsening pain weakness and numbness in her lower extremity. Patient has been having difficulty performing activity of daily living. After discussing risks benefits of treatment options, patient elected proceed with surgery. Surgeon: Estuardo Rosa Business Employment Specialist: Yeimy Sutherland Anesthesia Type: General Operative Notes Closure Type: primary Specimen(s): none sent Prosthetic devices, grafts, tissues, transplants, or devices: Globus CREO MIS screws, Globus revolve screws, Rise cage Applied: catheter Estimated Blood Loss (mL): 50 Blood products transfused: none Procedure in detail: Patient was seen in the preoperative area. Risks and benefits of the surgery was discussed with the patient. Informed consent was obtained from the patient and placed in the chart. Surgical site was marked. Patient was taken to the operative room. General anesthesia was administered. Prophylactic antibiotic was given to the patient less than 30 min before the incision was made. Patient was placed into a prone position on the Román table. Patient's back was then prepped and draped in the sterile fashion. Time-out was performed at this time. Using patient's previous scar incision was made over the L2-5 interval on the right side. Fascia was incised in line with skin incision. Patient's previously placed hardware over the L2-5 level was identified by dissecting down to the level the hardware using a Bovie and a Marinelli. The locking caps which was removed using Globus screwdriver. The locking lillian was then removed from the tulips of the pedicle screws using a Annie. The pedicle screws were then removed using the screwdriver. The screws were found to have good purchase. The only exception was the right L2 pedicle screw. The L2 right screw was found to have fractured at the screw interface. The Globus and MARS retractors was then placed into the wound and docked onto the L1 lamina using C-arm guidance. Using microsurgical technique and operating microscope a laminectomy facetectomy was performed by removing the L1 lamina and the L1-2 facet. The disc space at L1-2 level was identified next. And a total diskectomy was performed at L1-2 level. The endplates were decorticated using a rasp and shaver. The total diskectomy and decortication was performed at L1-2 level in order to to accomplish a L1-2 fusion. The local bone from the laminectomy and facetectomy was saved for local bone grafting. After the total diskectomy and decortication was completed, Globus viacell bone graft material was combined with local bone that was harvested earlier. At this time, a separate skin is incision was made over the iliac crest. A Jamshidi needle was inserted into the iliac crest through a separate skin incision. 5 cc of bone marrow aspiration was obtained through the separate skin incision using a Jamshidi needle from the iliac crest. The bone marrow aspiration was combined with local bone and the Trifecta bone grafting material. The bone grafting material was placed into the L1-2 interbody space along with a expandable cage. The cage was expanded to its maximum height using the torque limiting screwdriver. At this time a mirror image incision was made on the left side. The fascia was incised in line with the skin incision. Patient's previously placed hardware on the left side was then exposed in the same fashion as it was on the right side. The hardware was also found to have good purchase. The fusion mass on the left side was exposed by performing a left-sided hemilaminectomy at L2-3 L3-4 level. The hemilaminectomy was performed using the Kerrison rongeur to undercut the lamina as well removing additional epidural scar tissue for purpose of decompressing the epidural space. The fusion mass was explored and was found have visible motion indicating pseudoarthrosis at L2-3 level. The fusion appeared to be solid at L3-4 L4-5 level. Globus MARS retractor was inserted and docked onto the L1-2 L2-3 posterolateral gutter. Using the power drill, posterior-lateral decortication was performed at L1-2 L2-3 level until bleeding cortical bone was identified. The remaining bone grafting material was placed into the L1-2 L2-3 posterior lateral gutter he order to accomplish posterolateral fusion at the L1-2 L2-3 level. Using the double C-arm technique, pedicle screws were placed into the L1-L2 L3-L4 L5 pedicles on the right side. This was done by placing the Jamshidi needle into the pedicles, then placing the guidewires over the Jamshidi needle, and finally placing the cannulated screws over the guidewires on the right side. A L1 pedicle screw was placed into the left side using the same technique over time she and guidewire. The globus expansion system was used to attach the L1 pedicle screw to the lillian between L2-L3 pedicle on the left side. After all locking bolt was tightened down using torque limiting drivers, locking lillian was then placed into the tulips and locked into place used torque limiting screwdriver. After the pedicle screws were placed, 2 titanium rods was locked into the heads of the pedicle screws using locking caps and torque limiting screwdriver. All hardware was found to have good purchase. The right L2 pedicle screw was left and filled due to the broken screw inside the pedicle/vertebral body. After all the hardware was placed, and confirmed with AP and lateral C-arm imaging, the wound was then irrigated with sterile normal saline and packed with Ray-Manjula gauze for 3 min to accomplish hemostasis. After the gauze was removed the deep fascia was closed with #1 Vicryl suture. The subcutaneous layer was closed with 2-0 Vicryl. The skin was closed with skin víctor. Patient tolerated the procedure well. There were no complications. Neuro monitoring was used throughout the entire case. Pedicle screws were tested they were all above 20 milliamps of threshold bilaterally. Motor evoked potential was also performed which found to be baseline and stable throughout the entire case. Complications: none Post-operative Condition: stable Disposition: PACU Plan for aftercare: Admit to inpatient hospital
[2021-10-03] MEDS: hydrOXYzine 50 MG/ML INJ 25 MG IM (13:36)
[2021-10-03] MEDS: LABETALOL 20 MG/4 ML SYRINGE 5 MG IV ×2 (13:50→14:04)
[2021-10-03] MEDS: OXYCODONE IR 5 MG TABLET PO (14:05)
[2021-10-03] MEDS: LABETALOL 20 MG/4 ML SYRINGE IV (14:30)
--- NOTE | 2021-10-03 15:54 | PT-IP ANOTE ---
EMR reviewed and checked with nurse. Pt just had TLIF this morning. nurse stated that pt is not ready for pt. pt is asleep and BP is on the high side. will f/u tomorrow.
[2021-10-03] MEDS: OXYCODONE IR 5 MG TABLET 10 MG PO (16:53)
[2021-10-03] MEDS: SODIUM CHLORIDE 0.9% 1,000 ML 100 ML IV (16:54)
--- NOTE | 2021-10-03 16:59 | PC.ADMIT ---
Addendum entered by Jacqueline Rogers R.N. 10/03/21 18:48: Hospitalist consult obtained for continued HTN. Pt reports pain is not well controlled at present. Addendum entered by Jacqueline Rogers R.N. 10/03/21 17:03: Moving all ext well, Medicated for pain and obtained verbal for Hospitalist consult for HTN. Original Note: [email or web address] Admission Note:Pt arrives to the floor from PACU obtunded, answers y/n questions with head nod, but eyes closed. Rates pain 10/10, but unable to open eyes or hold gaze, will monitor for oversedation. HTN continues on arrival to floor. Dressing to low midle back cdi. Call light in reach.. Pt is attempting self rolls in bed with signifciant torsion/twisting , educated on limitations post op. The patient,China Pereira,71 y/o, was given written information regarding hospital policies, unit procedures and contact persons. Patient's smoking status: Never smoker. Vital Signs - 8 hr 10/03/21 12:53 10/03/21 12:58 10/03/21 13:03 Temperature 97.3 F L Pulse Rate 78 78 78 Respiratory Rate 12 12 15 Blood Pressure 130/67 130/67 144/76 H Pulse Oximetry 95 95 94 10/03/21 13:08 10/03/21 13:13 10/03/21 13:18 Temperature Pulse Rate 78 78 80 Respiratory Rate 2 L 12 12 Blood Pressure 152/79 H 155/90 H 164/89 H Pulse Oximetry 94 95 94 10/03/21 13:28 10/03/21 13:33 10/03/21 13:38 Temperature Pulse Rate 92 H 95 H 95 H Respiratory Rate 12 12 15 Blood Pressure 199/101 H 175/99 H 167/107 H Pulse Oximetry 96 96 98 10/03/21 13:43 10/03/21 13:48 10/03/21 13:50 Temperature Pulse Rate 95 H 94 H 96 H Respiratory Rate 12 12 Blood Pressure 189/84 H 176/88 H 176/88 H Pulse Oximetry 98 98 10/03/21 13:53 10/03/21 14:03 10/03/21 14:04 Temperature Pulse Rate 75 75 79 Respiratory Rate 12 12 Blood Pressure 169/82 H 181/91 H 181/91 H Pulse Oximetry 98 98 10/03/21 14:13 10/03/21 14:23 10/03/21 14:28 Temperature 97.2 F L Pulse Rate 79 72 72 Respiratory Rate 12 12 14 Blood Pressure 168/95 H 161/91 H 178/98 H Pulse Oximetry 97 99 98 10/03/21 14:30 10/03/21 14:50 10/03/21 15:20 Temperature 96.1 F L 96.7 F L Pulse Rate 72 74 79 Respiratory Rate 16 16 Blood Pressure 178/98 H 178/100 H 156/95 H Pulse Oximetry 98 95 10/03/21 15:50 10/03/21 16:57 Temperature 96.7 F L 96.7 F L Pulse Rate 84 82 Respiratory Rate 16 16 Blood Pressure 173/96 H 160/80 H Pulse Oximetry 98 98
--- NOTE | 2021-10-03 18:10 | PM.CN ---
History of Present Illness Consult details Date Patient Seen: 10/03/21 Time Patient Seen: 18:11 Chief complaint: HTN Reason for consult: HTN Requesting provider: Estuardo Rosa Narrative: This is a 71-year-old female with a past medical history of hypertension, hypothyroidism, depression, migraines, and chronic back pain who was admitted after L1-L2 posterior fusion, L2-3 posterior fusion L1-2 interbody cage placement, laminectomy in fasciectomy and L2 to at 5 posterior segment hardware removal with Dr. Rosa. Her blood pressure has been quite high since admission to the floor. Medicine was asked to consult for help with management of her blood pressure. The patient states that she is in quite a bit of back pain currently, though she just received some medications which did help with her pain as well as her blood pressure. She denies any chest pain, palpitations, shortness of breath, abdominal pain, nausea, vomiting, or headaches. Meds Home Medications and Allergies Home Medications Medication Instructions Recorded Confirmed Type benazepril 20 mg tablet (Lotensin) 20 mg PO DAILY 09/17/17 10/03/21 History clotrimazole-betamethasone 1 1 applic TOPICAL BID PRN 09/17/17 10/02/21 History %-0.05 % topical cream (Lotrisone) duloxetine 60 mg capsule,delayed 60 mg PO QPM 09/17/17 10/03/21 History release hydrochlorothiazide 50 mg tablet 50 mg PO DAILY 09/17/17 10/03/21 History hydrocortisone-pramoxine 2.5 %-1 % 1 applic RI BID PRN 09/17/17 10/02/21 History rectal cream (Analpram-HC) phenazopyridine 200 mg tablet 200 mg PO TID PRN 09/17/17 10/03/21 History (Pyridium) sertraline 100 mg tablet (Zoloft) 100 mg PO DAILY 09/17/17 10/03/21 History sumatriptan succinate 50 mg tablet 50 - 100 mg PO Q2-4H PRN 09/17/17 10/03/21 History (Imitrex) omeprazole 10 mg capsule,delayed 20 mg PO QPM 10/01/17 10/03/21 History release potassium chloride 10 mEq 10 meq PO BID 10/01/17 10/03/21 History tablet,extended release Synthroid 125 mcg tablet 125 mcg PO DAILY #90 tab NS 08/26/18 10/03/21 Rx (levothyroxine) atorvastatin 20 mg tablet 20 mg PO QPM 03/06/20 10/03/21 History fluticasone propionate 50 1 spray INTRANASAL DAILY PRN 03/06/20 10/02/21 History mcg/actuation nasal spray,suspension (Flonase Allergy Relief) ondansetron 4 mg disintegrating 4 mg PO BID PRN 03/06/20 10/03/21 History tablet tizanidine 4 mg capsule 4 - 8 mg PO BID PRN 03/06/20 10/03/21 History lidocaine 5 % topical patch 1 patch TOP DAILY #15 each 08/21/20 10/02/21 Rx (Lidoderm) acetaminophen 300 mg-codeine 30 mg 1 - 2 tab PO DAILY PRN 10/16/20 10/03/21 History tablet etodolac 500 mg tablet,extended 500 mg PO QPM 10/16/20 10/03/21 History release 24 hr gabapentin 300 mg capsule 300 mg PO QPM 10/02/21 10/03/21 History ibuprofen 200 mg capsule 400 mg PO DAILY PRN 10/02/21 10/03/21 History Allergies Allergy/AdvReac Type Severity Reaction Status Date / Time mushroom [MUSHROOM] Allergy Severe 'CUTS OFF Verified 10/16/20 08:43 BREATHING' oxaprozin [OXAPROZIN] Allergy Mild RASH Verified 10/16/20 08:43 diphenhydramine AdvReac Severe PERSONALITY Verified 10/16/20 08:43 [DIPHENHYDRAMINE] 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 Exam Vital Signs (past 8 hours): - 10/03/21 12:53 10/03/21 12:58 10/03/21 13:03 Temperature 97.3 F L Pulse Rate 78 78 78 Respiratory Rate 12 12 15 Blood Pressure 130/67 130/67 144/76 H Pulse Oximetry 95 95 94 10/03/21 13:08 10/03/21 13:13 10/03/21 13:18 Temperature Pulse Rate 78 78 80 Respiratory Rate 2 L 12 12 Blood Pressure 152/79 H 155/90 H 164/89 H Pulse Oximetry 94 95 94 10/03/21 13:28 10/03/21 13:33 10/03/21 13:38 Temperature Pulse Rate 92 H 95 H 95 H Respiratory Rate 12 12 15 Blood Pressure 199/101 H 175/99 H 167/107 H Pulse Oximetry 96 96 98 10/03/21 13:43 10/03/21 13:48 10/03/21 13:50 Temperature Pulse Rate 95 H 94 H 96 H Respiratory Rate 12 12 Blood Pressure 189/84 H 176/88 H 176/88 H Pulse Oximetry 98 98 10/03/21 13:53 10/03/21 14:03 10/03/21 14:04 Temperature Pulse Rate 75 75 79 Respiratory Rate 12 12 Blood Pressure 169/82 H 181/91 H 181/91 H Pulse Oximetry 98 98 10/03/21 14:13 10/03/21 14:23 10/03/21 14:28 Temperature 97.2 F L Pulse Rate 79 72 72 Respiratory Rate 12 12 14 Blood Pressure 168/95 H 161/91 H 178/98 H Pulse Oximetry 97 99 98 10/03/21 14:30 10/03/21 14:50 10/03/21 15:20 Temperature 96.1 F L 96.7 F L Pulse Rate 72 74 79 Respiratory Rate 16 16 Blood Pressure 178/98 H 178/100 H 156/95 H Pulse Oximetry 98 95 10/03/21 15:50 10/03/21 16:57 Temperature 96.7 F L 96.7 F L Pulse Rate 84 82 Respiratory Rate 16 16 Blood Pressure 173/96 H 160/80 H Pulse Oximetry 98 98 Oxygen Delivery Method Nasal Cannula Oxygen Flow Rate 0 Narrative Exam Narrative: General:? Patient is well developed and well nourished, in no distress at this time. She is lying on her abdomen after back surgery. HEENT:? Normocephalic, atraumatic, extraocular muscles intact, oral pharynx is clear and mucous membranes are moist. Lungs:? CTA b/l no wheezing rhonchi or rales. Cardio:?RRR, unable to evaluate adequately given positioning after back surgery. Abdomen: unable to assess, but states no tenderness. Musculoskeletal:? Muscle strength and tone are equal within normal limits, no deformity. Midline back dressing with slight serosanguinous fluid, no erythema. Extremities: No edema or joint effusions. No cyanosis or clubbing. Skin:? Pale,? Warm to touch,dry and intact without rashes, ulcerations or petechiae.? Neuro:? Alert and orientated x3,? sensation to touch intact in all extremities, no gross deficits noted of cranial nerves. Psych:? Patient has a well-kept appearance, appropriate affect, mental status attitude thought context and judgment are appropriate for age. [facility] Medical History Arthritis Asthma Bone spur Bone spur of left foot Bruises easily Chronic heartburn Constipation Deviated septum Diabetes Dry skin GERD (gastroesophageal reflux disease) Hard of hearing Hemorrhoids Herniated disc History of nephrolithiasis History of UTI Hx of migraine headaches Hypertension Hypothyroid IBS (irritable bowel syndrome) Impaired vision in both eyes Impairment of balance Incontinence Kidney stones Lower back pain Lower urinary tract symptoms (LUTS) Major depressive disorder Migraine Numbness and tingling of both legs Numbness in both legs Obesity Post-menopausal Postmenopausal atrophic vaginitis Rheumatoid arthritis Rosacea Sinus headache SOB (shortness of breath) on exertion Thyroid disease Urinary tract infection Vertigo Surgical History H/O detached retina repair H/O foot surgery H/O laminectomy History of bilateral knee replacement History of eye surgery History of hysterectomy History of spinal fusion (10/01/17) Hx of LASIK Hx of nasal septoplasty Family History (Updated 10/03/21 @ 18:16 by Juanito Pina DO) Brother Diabetes mellitus Mother Diabetes mellitus Social History household members: none Tobacco & Substance Use Smoking Status: Never smoker alcohol intake: current (occasional) substance use type: does not use Assessment & Plan Assessment & Plan narrative: This is a 71-year-old female with a past medical history of hypertension, hypothyroidism, depression, migraines, and chronic back pain who was admitted after L1-L2 posterior fusion, L2-3 posterior fusion L1-2 interbody cage placement, laminectomy in fasciectomy and L2 to at 5 posterior segment hardware removal with Dr. Rosa. Medicine was consulted for assistance with hypertension management. 1. HTN - highly likely in the setting of uncontrolled pain. Would recommend increasing pain medication, as she likely has a tolerance built up from chronic opiate use. - no changes recommended to home HCTZ or benazepril currently. - would not treat acutely unless SBP >200 or patient is symptomatic with nausea, vomiting, chest pain, etc. - check EKG chronic conditions: hypothyroidism, depression, migraines, chronic back pain - no changes to her home medications are recommended. Code: Full, surrogate decision maker is the patients sister. Medicine will continue to monitor patient's blood pressures, please reach out with any additional questions. I have utilized all available immediate resources to obtain, update, or review the patient's current medications. Time Spent With Patient Critical Care time: I spent a total of [] minutes of critical care time on this patient's care today; this time is exclusive of procedural time.
[2021-10-03] MEDS: HYDROMORPHONE 0.5 MG INJ IV (18:36)
[2021-10-03] MEDS: hydrOXYzine pamoate 25 MG CAPSULE PO (18:40)
[2021-10-03] MEDS: NAPROXEN 250 MG TABLET 500 MG PO (21:18)
[2021-10-03] MEDS: DULOXETINE 30 MG CAPSULE 60 MG PO (21:20)
[2021-10-03] MEDS: DOCUSATE 100 MG CAPSULE PO (21:21)
[2021-10-03] MEDS: SENNOSIDES 8.6 MG TABLET 17.2 MG PO (21:21)
[2021-10-03] MEDS: ATORVASTATIN 20 MG TABLET PO (21:22)
[2021-10-03] MEDS: GABAPENTIN 300 MG CAPSULE PO (21:22)
[2021-10-03] MEDS: POTASSIUM CHLORIDE 10 MEQ TAB PO (21:25)
[2021-10-03] MEDS: FLUTICASONE 120 SPRAY/16 GM SPRAY.SUSP NASAL (21:27)
[2021-10-03] MEDS: PANTOPRAZOLE DR 20 MG TABLET PO (22:30)
[2021-10-04] MEDS: OXYCODONE IR 5 MG TABLET 10 MG PO ×5 (01:15→20:09)
[2021-10-04] MEDS: ACETAMINOPHEN 325 MG TABLET 650 MG PO ×3 (01:16→23:39)
[2021-10-04] MEDS: CEFAZOLIN 2 GM/20 ML SYRINGE IV (01:16)
[2021-10-04 03:56] VITALS: BP 152/66; PULSE 103; RESP 16; TEMP 37.6; O2SAT 97
[2021-10-04] MEDS: SODIUM CHLORIDE 0.9% 1,000 ML 100 ML IV (04:59)
[2021-10-04 05:59] LABS: Hematocrit 29.8 % (36-46); Hemoglobin 9.7 g/dL (12.0-16.0)
[2021-10-04 07:30] VITALS: BP 140/75; PULSE 94; RESP 17; TEMP 36.5; O2SAT 96
[2021-10-04] MEDS: POTASSIUM CHLORIDE 10 MEQ TAB PO ×2 (09:07→20:17)
[2021-10-04] MEDS: hydroCHLOROthiazide 25 MG TABLET 50 MG PO (09:07)
[2021-10-04] MEDS: SERTRALINE 50 MG TABLET 100 MG PO (09:07)
[2021-10-04] MEDS: DOCUSATE 100 MG CAPSULE PO ×2 (09:07→20:16)
--- NOTE | 2021-10-04 10:00 | PM.PNPO.1 ---
Subjective Subjective Date Patient Seen: 10/04/21 Time Patient Seen: 10:00 Interval history: Resting comfortably in bed on her left side. Says she worked with PT today and 'felt a little shaky, but I'm always shaky.' Confident she can safely return home with her sister for help after more work with PT. BP better controlled, pain better controlled. C/o low back pain, denies leg pain. Eating without difficulty. Exam Vital Signs (past 8 hours): - 10/04/21 03:56 10/04/21 07:30 Temperature 99.6 F 97.7 F Pulse Rate 103 H 94 H Respiratory Rate 16 17 Blood Pressure 152/66 H 140/75 Pulse Oximetry 97 96 Oxygen Delivery Method Nasal Cannula Oxygen Flow Rate 0 Narrative Exam Narrative: 5/5 strength in hip flexors, quadriceps, hamstrings, DF, PF, EHL bilaterally. Sensation to light touch intact in BLE. Calves soft, compressible, nontender and without palpable cords or masses. Dressing w/ scant bloody drainage, intact. Objective Labs Result Diagrams: 10/04/21 05:27 Labs: Laboratory Results - last 24 hr 10/04/21 05:27 Hgb 9.7 L Hct 29.8 L PFSH Medical History (Updated 10/04/21 @ 10:04 by Chio Crockett PA-C) Arthritis Asthma Bone spur Bone spur of left foot Bruises easily Chronic heartburn Constipation Deviated septum Diabetes Dry skin Essential hypertension GERD (gastroesophageal reflux disease) Hard of hearing Hemorrhoids Herniated disc History of nephrolithiasis History of UTI Hx of migraine headaches Hypertension Hypothyroid IBS (irritable bowel syndrome) Impaired vision in both eyes Impairment of balance Incontinence Kidney stones Lower back pain Lower urinary tract symptoms (LUTS) Major depressive disorder Migraine Numbness and tingling of both legs Numbness in both legs Obesity Post-menopausal Postmenopausal atrophic vaginitis Rheumatoid arthritis Rosacea Sinus headache SOB (shortness of breath) on exertion Thyroid disease Urinary tract infection Vertigo Surgical History (Updated 10/04/21 @ 10:04 by Chio Crockett PA-C) H/O detached retina repair H/O foot surgery H/O laminectomy History of bilateral knee replacement History of eye surgery History of hysterectomy History of spinal fusion (10/01/17) Hx of LASIK Hx of nasal septoplasty Family History (Updated 10/03/21 @ 18:16 by Juanito Pina DO) Brother Diabetes mellitus Mother Diabetes mellitus Social History household members: none Smoking Status: Never smoker alcohol intake: current substance use type: does not use Assessment & Plan Post-op Assessment and plan (1) S/P lumbar fusion: Assessment and Plan narrative: PT, multimodal pain control, SCDs for VTE prophylaxis. Likely discharge home tomorrow if she progresses w/ PT. (2) Acute postoperative anemia due to expected blood loss: Assessment and Plan narrative: Asymptomatic, no intervention needed at this time. (3) Essential hypertension: Assessment and Plan narrative: Appreciate Dr Pina's input. Will continue home meds. (4) Obesity: Postoperative Procedures: Procedures Operation Date: 10/03/21 08:45 Actual Procedure Side Surgeon p L1-2 TLIF, L2-5 lumbar HWR, exploration of fusion,repeat laminectomy, reinsertion of hardware Estuardo Rosa MD Postoperative day: 1
[2021-10-04] MEDS: LEVOTHYROXINE 125 MCG TABLET PO (10:24)
--- NOTE | 2021-10-04 10:24 | PT.IIE ---
Addendum entered and electronically signed by Sirisha England PT 10/04/21 10:25: Pt's BP sitting EOB 140/66 Original Note: Current Diagnoses Acute posthemorrhagic anemia (10/03/21) Obesity, unspecified (10/03/21) Essential (primary) hypertension (10/03/21) Unspecified fracture of unspecified lumbar vertebra, subsequent encounter for fracture with nonunion (10/03/21) Other mechanical complication of other internal orthopedic devices, implants and grafts, initial encounter (10/03/21) Arthrodesis status (10/03/21) Surgery Performed Operation Date: 10/03/21 08:45 Actual Procedures p L1-2 TLIF, L2-5 lumbar HWR, exploration of fusion,repeat laminectomy, reinsertion of hardware - Estuardo Rosa MD Medical History (Last Updated 10/04/21 @ 10:04 by Chio Crockett PA-C) Arthritis Asthma Bone spur Bone spur of left foot Bruises easily Chronic heartburn Constipation Deviated septum Diabetes Dry skin Essential hypertension GERD (gastroesophageal reflux disease) Hard of hearing Hemorrhoids Herniated disc History of nephrolithiasis History of UTI Hx of migraine headaches Hypertension Hypothyroid IBS (irritable bowel syndrome) Impaired vision in both eyes Impairment of balance Incontinence Kidney stones Lower back pain Lower urinary tract symptoms (LUTS) Major depressive disorder Migraine Numbness and tingling of both legs Numbness in both legs Obesity Post-menopausal Postmenopausal atrophic vaginitis Rheumatoid arthritis Rosacea Sinus headache SOB (shortness of breath) on exertion Thyroid disease Urinary tract infection Vertigo Physical Therapy Inpatient Evaluation/Re-Eval M1 PT/OT-IP Prior Functional Status Start: 10/04/21 10:12 Freq: Status: Active Protocol: Document 10/04/21 10:12 (Rec: 10/04/21 10:24 [id number]) Medical Review Prior Functional Status Medical History Reviewed Yes Mobility and Gait Independent, no A.D., lives alone in single story home. Still driving and Ind with self/home care ADLs Social History Household Members none Living Arrangements House Number of Floors (Floors) One Floor Number of Stairs To Enter/Railing? 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 PT-IP Current Condition Start: 10/04/21 10:12 Freq: Status: Active Protocol: Document 10/04/21 10:12 BC (Rec: 10/04/21 10:24 [id number]) Physical Therapy Current Condition Current Condition Evaluation Date 10/04/21 Treatment Diagnosis difficulty with ambulation Onset Date 10/03/2021 M3 PT-IP Subjective Start: 10/04/21 10:12 Freq: Status: Active Protocol: Document 10/04/21 10:12 BC (Rec: 10/04/21 10:24 [id number]) Subjective Physical Therapy Visit Type Type Initial Evaluation Visit Start Time 08:30 Visit Stop Time 09:15 Total Visit Minutes 41 Physical Therapy Visit Comments Patient Comments Pt states this is her 4th spinal surgery. Patient Goals To return home Therapy Pain Assessment Pain When Pain Assessed After Treatment Pain Present Pain Present Pain Reported Location Back Intensity 5 Scale Used Numeric (0 - 10) Description Aching M4 PT-IP Mobility and Gait Start: 10/04/21 10:12 Freq: Status: Active Protocol: Document 10/04/21 10:12 BC (Rec: 10/04/21 10:24 [id number]) PT-Bed Mobility Assessment Rolling Type of Rolling Log Rolling Level of Assist Standby Assistance Supine to Sit Supine to Sit Standby Assistance Sit to Supine Sit to Supine Standby Assistance Scooting Scooting to Edge of Bed Independent PT-Transfer Assessment Sit to and From Stand Sit to and from Stand Standby Assistance Equipment Transfer Assistive Device Gait Belt,Front Wheeled Walker Transfers Transfer Destination Bed Transfer Technique Stand Step Pivot Transfer Ability Level of Assist Standby Assistance Gait Assessment Gait Gait Assistance Required: Standby Assistance Distance (Feet) 75 Assistive Devices Assistive Device Gait Belt,Front Wheeled Walker Gait Deviations General Gait Pattern Decreased Stride Length Factors Limiting Gait Function Factors Limiting Gait Function Pain Comments Gait Comments Pt states My walking feels jerky compared to her norm. She states pain is remaining ~ 5/10 at rest and with ambulation. PT-Balance Assessment Sitting Balance and Reactions Static Sitting Balance Ability Normal Dynamic Sitting Balance Ability Good Standing Balance and Reactions Static Standing Balance Ability Good Dynamic Standing Balance Ability Fair Device Used FWW M5 PT-IP Objective Assessments Start: 10/04/21 10:12 Freq: Status: Active Protocol: Document 10/04/21 10:12 BC (Rec: 10/04/21 10:24 [id number]) Orientation Orientation/Cognition Level of Alertness Alert Orientation Name,Age,Date,Year,Place, Situation Gross Range of Motion Upper Extremity ROM Assessment Within Functional Limits Lower Extremity ROM Assessment Within Functional Limits Strength Upper Extremity Strength Assessment Within Functional Limits Lower Extremity Strength Assessment Within Functional Limits Knee 5/5 Ankle 5/5 Comments Strength Comments no focal weakness in distal LEs. Hip MMT not assessed due to recent spine sx and pain. Functionally she is demonstrating good BLE strength. Coordination Assessment Gross Coordination Gross Coordination WNL Muscle Tone Muscle Tone WNL Yes M6 PT-IP Treatment Start: 10/04/21 10:12 Freq: Status: Active Protocol: Document 10/04/21 10:12 (Rec: 10/04/21 10:24 [id number]) Physical Therapy Treatment Education Education Provided Precautions,Post-Op Packet Brace Education Patient M7 PT-IP Assessment and Plan Start: 10/04/21 10:12 Freq: Status: Active Protocol: Document 10/04/21 10:12 (Rec: 10/04/21 10:24 [id number]) PT Summary Assessment and Plan Potential Rehabilitation Potential Excellent Status of Condition at Evaluation Stable Summary Impairments Pain Progress Towards Goals Progressing Toward Goals Assessment Summary Pt admitted for hardware repair in prior lumbar spine fusion. She is s/p L1-L3 fusion with hemilaminectomy and hardware repair. This is Pt's 4th spine sx stating she seems to have to do this again every two years. Pt lives I' ly in a private single story home. She is fully independent as her PLOF. She has a sister who is traveling up to stay the week with her when she d/c home. Pt denies any significant concerns about d/c home. CLOF: Pt is demonstrating SBA for safety only with all mobility. She recalls spinal precautions and performs appropriate log roll technique without any cues/support. Recommend d/c home with family support and OPPT as recommended by surgeon. PT 1-2 more visits to progress ambulation distance safely and review any questions Pt may have but she is otherwise appropriate to d/c home. Goals Gait Goal Standby Assistance,Front Wheel Walker Gait Distance 150 Days to Meet Goals 2 Frequency of Treatment Frequency Of Treatment Twice a Day Treatment Plan Physical Therapy Treatment Plan Gait Training,Post Op Education,Discharge Planning Precautions Lumbar Precautions Log Roll,No Twisting,Limit Bending,Lifting Restriction of 10 lbs,Gait Belt above Incisional Area Recommendations To Nursing Amount of Assist Needed Standby Assistance Discharge Recommendations PT Discharge Recommendations Home with Assistance,Home Health,Outpatient PT Other Discharge Recommendations Pt has not had HHPT after prior surgeries. Anticipate OPPT as recommended by surgeon . Transportation Needs at Discharge Private Vehicle
--- NOTE | 2021-10-04 11:44 | OT.IP.EVAL ---
Current Diagnoses Acute posthemorrhagic anemia (10/03/21) Obesity, unspecified (10/03/21) Essential (primary) hypertension (10/03/21) Unspecified fracture of unspecified lumbar vertebra, subsequent encounter for fracture with nonunion (10/03/21) Other mechanical complication of other internal orthopedic devices, implants and grafts, initial encounter (10/03/21) Arthrodesis status (10/03/21) Surgery Performed Operation Date: 10/03/21 08:45 Actual Procedures p L1-2 TLIF, L2-5 lumbar HWR, exploration of fusion,repeat laminectomy, reinsertion of hardware - Estuardo Rosa MD Past Medical History (Last Updated 10/04/21 @ 10:04 by Chio Crockett PA-C) Arthritis Asthma Bone spur Bone spur of left foot Bruises easily Chronic heartburn Constipation Deviated septum Diabetes Dry skin Essential hypertension GERD (gastroesophageal reflux disease) H/O detached retina repair H/O foot surgery H/O laminectomy Hard of hearing Hemorrhoids Herniated disc History of bilateral knee replacement History of eye surgery History of hysterectomy History of nephrolithiasis History of spinal fusion (10/01/17) History of UTI Hx of LASIK Hx of migraine headaches Hx of nasal septoplasty Hypertension Hypothyroid IBS (irritable bowel syndrome) Impaired vision in both eyes Impairment of balance Incontinence Kidney stones Lower back pain Lower urinary tract symptoms (LUTS) Major depressive disorder Migraine Numbness and tingling of both legs Numbness in both legs Obesity Post-menopausal Postmenopausal atrophic vaginitis Rheumatoid arthritis Rosacea Sinus headache SOB (shortness of breath) on exertion Thyroid disease Urinary tract infection Vertigo Surgical History (Last Reviewed 10/03/21 @ 18:15 by Juanito Pina DO) H/O detached retina repair H/O foot surgery H/O laminectomy History of bilateral knee replacement History of eye surgery History of hysterectomy History of spinal fusion (10/01/17) Hx of LASIK Hx of nasal septoplasty Occupational Therapy Inpatient Evaluation/Re-Eval M1 PT/OT-IP Prior Functional Status Start: 10/04/21 10:12 Freq: Status: Active Protocol: Document 10/04/21 12:17 [facility] (Rec: 10/04/21 12:47 [facility] [id number]) Medical Review Prior Functional Status Medical History Reviewed Yes Mobility and Gait Independent, no A.D., lives alone in single story home. Still driving and Ind with self/home care ADLs Activities of Daily Living and IADL's Pt states was independent with her needs but then states has difficulty with her pericare needs and uses a bidet at home . Social History Household Members none Living Arrangements House Number of Floors (Floors) One Floor Number of Stairs To Enter/Railing? 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 M2 OT-IP Current Condition Start: 10/04/21 12:16 Freq: Status: Active Protocol: Document 10/04/21 12:17 [facility] (Rec: 10/04/21 12:47 [facility] [id number]) Occupational Therapy Current Condition Current Condition Evaluation Date 10/04/21 Treatment Diagnosis S/p L1-2 TLIF, L2-L5 hardware removal, repeat laminectomy Diagnosis Onset Date 10/03/21 Post Operative Precautions Lumbar Precautions Log Roll,No Twisting,Limit Bending,Lifting Restriction of 10 lbs,Gait Belt above Incisional Area M3 OT- IP Subjective and Pain Start: 10/04/21 12:16 Freq: Status: Active Protocol: Document 10/04/21 12:17 [facility] (Rec: 10/04/21 12:47 [facility] [id number]) OT- Subjective Occupational Therapy Visit Type Type Initial Evaluation Visit Start Time 11:00 Visit Stop Time 11:44 Total Visit Minutes 44 Occupational Therapy Visit Comments Patient Comments Pt wanting to get dressed and not wanting to shower here. Patient/Caregiver Goals TO go home. OT Pain Assessment Pain When Pain Assessed During Mobility Pain Present Pain Present Pain Reported Location Back Intensity 6 Scale Used Numeric (0 - 10) M4 OT- IP ADL's Start: 10/04/21 12:16 Freq: Status: Active Protocol: Document 10/04/21 12:17 [facility] (Rec: 10/04/21 12:47 [facility] [id number]) OT ADL-Grooming Comments OT Grooming Comments Pt able to do while seated. OT ADL-Oral Care Comments Oral Care Comments Pt able to do while seated. OT ADL-Dressing General Eval Lower Body Dressing Ability Maximum Assistance Comments OT Dressing Comments Pt states usually lifts her leg up to the bed and twists to get her brief on. Had pt use the self propelled hot mix roller operator to assist to get the brief over her feet. CGA for balance and pt able to get the brief up over her hips. Pt states does not usually wear socks at home. OT ADL-Toileting Comments OT Toileting Comments Pt states uses a bidet at home to assist for toileting needs . OT ADL-Bathing Comments OT Bathing Comments To try shower tomorrow. M5 OT- IP IADL's Start: 10/04/21 12:16 Freq: Status: Active Protocol: Document 10/04/21 12:17 [facility] (Rec: 10/04/21 12:47 [facility] [id number]) OT-Instrumental Activities of Daily Living Home Safety Awareness Home Safety Comments Pt's sister to stay with her for a week to assist with her needs. M6 OT- IP Functional Cognition Start: 10/04/21 12:16 Freq: Status: Active Protocol: Document 10/04/21 12:17 [facility] (Rec: 10/04/21 12:47 [facility] [id number]) Cognitive Factors Limiting Selfcare Function Cognitive Ability Level of Alertness Alert Patient Orientation Name,Place,Situation Attention Span Ability Capable of Focused Attention, Capable of Sustained Attention Ability to Follow Commands Able to Follow One Step Commands Safety Awareness Decreased Ability to Apply Precautions,Underestimates Need for Assistance Cognitive Comments Cognitive Assessment Comments Pt needing education for use of LB Dressing equipment even though this is pt's 4th back surgery, pt was not aware how to use the self propelled hot mix roller operator to saroj her brief. Questionable of follow through of back precautions at home as pt states usually throw her leg up on the bed and twists to put her brief on. OT- Vision and Hearing OT- Hearing Assessment OT- Hearing Assessment WFL OT- Vision Assessment Visual Acuity Glasses For Reading M7 OT- IP Mobility and Balance Start: 10/04/21 12:16 Freq: Status: Active Protocol: Document 10/04/21 12:17 [facility] (Rec: 10/04/21 12:47 [facility] [id number]) OT- Bed Mobility Assessment Supine to Sit Supine to Sit Assist Contact Guard Assistance OT-Transfer Assessment Sit to and From Stand Sit to and from Stand Contact Guard Assistance Transfers Transfer Ability Contact Guard Assistance Technique Transfer Destination Bed,Chair Transfer Technique Stand Step Pivot Devices Transfer Assistive Devices Gait Belt,Front Wheeled Walker Comments Mobility Comments Pt lying on her stomach when OT came in the room. Pt states always sleeps on her stomach or side lying at home. Suggested best to sleep on her back or in a recliner to prevent from twisting. Pt CGA to help get to the edge of the bed from side lying and to stand with FWW. OT- Gait Assessment Comments Gait Ability Comments CGA with FWW to walk around the bed to the recliner. OT- Balance Assessment Sitting Balance and Reactions Static Sitting Balance Ability Good Dynamic Sitting Balance Ability Fair Standing Balance and Reactions Static Standing Balance Ability Fair Dynamic Standing Balance Ability Fair M8 OT- IP Objective Assessments Start: 10/04/21 12:16 Freq: Status: Active Protocol: Document 10/04/21 12:17 [facility] (Rec: 10/04/21 12:47 [facility] [id number]) OT-Muscle Tone Assessment Muscle Tone WNL Yes M9 OT- IP Assessment and Plan Start: 10/04/21 12:16 Freq: Status: Active Protocol: Document 10/04/21 12:17 [facility] (Rec: 10/04/21 12:47 [facility] [id number]) OT Summary Assessment and Plan Potential Rehabilitation Potential Good Analytic Complexity at Evaluation Low Summary OT Impairments Pain,Balance,Functional Mobility,Dressing,Toileting, Bathing,Toilet Transfers, Shower Transfers,Activity Tolerance Progress Towards Goals Progressing Toward Goals Assessment Summary Pt low complexity and main barriers are pt is insistent of doing things her way at times and therefore not following her back precautions . Pt to have her sister stay with her for a week. Pt may benefit from home health to best help her incorporate safety and back precautions for all her ADL, IADl, and mobility needs. Goals Grooming Goal Independent Dressing Goal Independent Toileting Goal Independent Bathing Goal Independent Toilet Transfer Goal Independent Shower Transfer Goal Independent Days to Meet Goals 10 Frequency of Treatment Frequency Of Treatment Once a Day Treatment Plan OT Treatment Plan ADL Training,Functional Cognition Training,Functional Mobility,Patient/Family Education,Discharge Planning Other Treatment Recommendations and Next shower Treatment Focus Discharge Recommendations OT Discharge Recommendations Home with 24/7 Assist Available,Home Health Transportation Needs at Discharge Private Vehicle
--- NOTE | 2021-10-04 11:45 | PC.NURSE ---
Pt oscar catheter removed at 11:20 per provider order. 500 ml clear yellow urine drained from oscar catheter drainage bag. Oscar catheter tubing intact and pt tolerated well.
[2021-10-04 12:00] VITALS: BP 111/54; PULSE 81; RESP 16; TEMP 36.6; O2SAT 99
--- NOTE | 2021-10-04 13:33 | CM.DANOTE ---
Patient is a 71 yo female who was admitted on 10/03/21 for TLIF. Pt has MCR and AARP for insurance and her PCP is not listed. EMR was reviewed. Per Ortho MD, pt tolerated procedure well but having some bp issues and pain control needs. Per MD, pt's bp seems better controlled and likely signing off today if pt remains stable. Per PT/OT, recommending safe d/c home with sister to stay and assist and likely outpt PT but r/o HH. SW met bedside with pt while she was working with PT and awaiting pain meds before ambulating the halls and SW explained role and she confirms she has had multiple back surgeries over the past few years and still lives alone in [place] and is independent with ADL's and drives. Pt designates her sister Earlene as her DPOA and pt's last admission for TLIF was in Mar 2020 and was able to d/c home with sister staying with her for assist. Pt confirms her plan is return home with sister to stay again and assist for a few days to a week. Pt denies any hx of HH or SNF and states she has used outpt PT in the past but only for 1-2 sessions. Pt does not anticipate any needs at d/c and sister to transport home at discharge. SW observed pt walking halls with PT and walker with slow gait and steady gait. Plan: SW to follow closely for further PT/OT towards confirming safe plan of home with sister assist and r/o HH. CONCHITA Tierney Discharge Planning/Care Management CM Discharge Assessment Start: 10/04/21 13:31 Freq: Status: Active Protocol: Document 10/04/21 13:31 (Rec: 10/04/21 13:33 [id number]) Discharge Planning Assessment Assigned Open Hearth Melter CONCHITA Quiñonez DPOA/Assigned Designee Name sister Earlene Hester Contact Information [phone] Advance Directives? Yes Advance Directives on File No History Provided By Patient,Medical Record Has Patient been admitted in last 30 No days? Prior Living Arrangements House Household Members none Type of transporation used prior to Drives own vehicle admit Independent with ADL's Yes Is patient alert and oriented? Yes Caregiver for Another No DME Already Rented / Owned FWW / Walker Patient/Family Preference OP PT Therapy Barriers to Discharge No Comment Patient does live alone, but she has her sister that will be coming up and staying with her. Discharge Plan Home Transportation Arrangement Sister to provide transport at d/c Referrals Initiated None needed Additional Comment With assist from sister, she is coming from [place], [place] to assist. r/o HH Whiteboard Updated in Patient Room with Yes name and ext. # of [employer] H[employer] Melter Review Status In Process Please Provide Date Initial DC 10/04/21 Assessment Was Performed Next Review Type Continued Stay Review Pre-Anesthesia Assessment Start: 10/02/21 11:53 Freq: Status: Complete Protocol: Document 10/02/21 11:53 [facility] (Rec: 10/02/21 12:36 CAB [id number]) Pre-Anesthesia Assessment Patient Information Reviewed Via Phone Assessment Assessment Completed With Patient Diagnostic Results BMP/CMP,CBC,EKG Comment Labs/ECG @ 09/06/21 COVID screen @ 10/01/21 Negative Primary Care Provider None Seen Specialist in Last 12 Months Yes Specialist Seen Orthopedist,Other Comment Rheumatology Primary Language Macanese Preferred Language Macanese Mold Builder Required No Height 160.02 cm Weight 99.79 kg Body Mass Index (BMI) 38.9 Hearing Ability Normal Visual Assist Glasses Dentition Type Teeth, Natural Present,Teeth, Broken Barriers to Learning Memory Hx Anesthesia Reactions Yes: Severe headache w/spinal Hx Family Anesthesia Reaction Yes: Sister-PONV Hx Malignant Hyperthermia No Hx Blood Transfusions No Hx Blood Transfusion Reaction No Anesthesia Review Requested No alcohol intake current alcohol intake frequency holidays/special occasions only Smoking Status Never smoker Substance Use Type does not use Pain Present Pain Reported Musculoskeletal Symptoms Abnormal Gait,Back Pain, Difficulty Walking,Joint Pain, Muscle Spasms,Numbness, Radiating Pain into Limb, Tingling History of Falling (Recent or History of Yes ) Patient is completely paralyzed or No completely immobile Prosthesis or Orthotic Device Cane,Front Wheel Walker Mental Status Oriented to own ability Is patient on oxygen? No Does patient have ELI/SOB No Hx Sleep Apnea No CPAP/BIPAP use not prescribed Currently Taking a Beta Shantanu No Can You Climb a Flight of Stairs Without Yes SOB Hx Chest Pain No Hx SOB No Hx Syncope or Dizziness No Anti-Coagulant Therapy No Has a Senior Solutions Architect No Cardiac Testing No Hx Pacemaker/ICD No Pacemaker Rep Required? No Cardiac Clearance Received Not Applicable Diet Type At Home Regular Gastrointestinal Symptoms Constipation,Reflux Bladder Pattern Nocturia Urinary Catheter Present No Hx Urinary Self Catheterization No Diabetes Yes: Pt states she has not been told/advised she has diabetes HgbA1C 7.2 Date 02/08/20 Patient No Lactating No Presence of External or Internal Medical Yes: [place] TKA, back hardware Devices Have you had any close contact with No someone diagnosed with COVID-19? Received a COVID vaccine? Yes Received all doses? Yes Marital Status Single Lives With none Prior Living Arrangements House Support System Sibling(s) Does the Patient Have Assistance After Yes: Sister will stay w/pt for Surgery a couple of days to assist w/ care at [place] Patient Discharge Plan Description Return Home Comment Pt not advised length of stay per surgeon Feels Safe in Current Environment Yes Been Physically Hurt or Threatened By a No Person in Current Environment Do you have thoughts of harming yourself None or others? Are you currently considering suicide? No Do you have a plan to hurt yourself or No Plan others? Do You Have Any Spiritual Beliefs That No May Affect Your HC Choices? Do You Have Any Cultural Practices That No May Affect Your HC Choices? Who Can We Speak to About Patient's Care Family, friends Identifying Code for Release of Patient Declines to issue Information Health Care Proxy/Next of Kin Sneha Hester () Health Care Proxy Emergency Contact Name Sneha Hester () Emergency Contact Advance Directives? Yes Advance Directives on File No Power of Online Marketing Director No PAC Instructions Diabetes instructions,Durable medical equipment,Medications to take/avoid,Nasal antibiotic ,No ETOH/petroleum product on skin DOS,NPO,Post-op transportation,Pre-surgical wash,Sturdy shoes/comfortable clothes,Do not bring valuables and remove jewelry
--- NOTE | 2021-10-04 14:15 | PT.IPTN ---
Current Diagnoses Acute posthemorrhagic anemia (10/03/21) Obesity, unspecified (10/03/21) Essential (primary) hypertension (10/03/21) Unspecified fracture of unspecified lumbar vertebra, subsequent encounter for fracture with nonunion (10/03/21) Other mechanical complication of other internal orthopedic devices, implants and grafts, initial encounter (10/03/21) Arthrodesis status (10/03/21) Surgery Performed Operation Date: 10/03/21 08:45 Actual Procedures p L1-2 TLIF, L2-5 lumbar HWR, exploration of fusion,repeat laminectomy, reinsertion of hardware - Estuardo Rosa MD Physical Therapy Treatment Note M2 PT-IP Current Condition Start: 10/04/21 10:12 Freq: Status: Active Protocol: Document 10/04/21 10:12 BC (Rec: 10/04/21 10:24 BC [id number]) Physical Therapy Current Condition Current Condition Evaluation Date 10/04/21 Treatment Diagnosis difficulty with ambulation Onset Date 10/03/2021 M3 PT-IP Subjective Start: 10/04/21 10:12 Freq: Status: Active Protocol: Document 10/04/21 14:15 AB (Rec: 10/04/21 15:39 AB [id number]) Subjective Physical Therapy Visit Type Type Treatment Note Visit Start Time 14:15 Visit Stop Time 14:30 Total Visit Minutes 15 Number of CUSTOMER SOLUTIONS TEAMMATE Visits 0 Therapy Pain Assessment Pain When Pain Assessed At Rest Pain Present Pain Present Pain Reported Location Back Intensity 7 Scale Used Numeric (0 - 10) Pain Management Techniques Distraction,Modification of Treatment,Re-positioning, Timing of Activity with Medications M4 PT-IP Mobility and Gait Start: 10/04/21 10:12 Freq: Status: Active Protocol: Document 10/04/21 14:15 AB (Rec: 10/04/21 15:39 AB [id number]) PT-Bed Mobility Assessment Rolling Type of Rolling Log Rolling Level of Assist Standby Assistance Supine to Sit Supine to Sit Independent Sit to Supine Sit to Supine Standby Assistance PT-Transfer Assessment Sit to and From Stand Sit to and from Stand Contact Guard Assistance,1 Person Assistance,Use of Upper Extremities Equipment Transfer Assistive Device Gait Belt,Front Wheeled Walker Orthotic/Prosthetic Devices or Brace: No Comments Mobility Comments pt clarified that she has 1 step to enter the house. pt completed log roll supine to sit SBA. completed sit to stand CGA and ambulated ~ 125 ft using FWW CGA. ambulated back to her room. requested to go back to bed and completed sit to supine SBA. positioned pt in bed. call light and table placed within reach. pt refused to do stair climbing this afternoon. also does not want caregiver training and stated that she can just tell her sister what to do. Gait Assessment Gait Gait Assistance Required: Contact Guard Assist Distance (Feet) 125 Able to Maintain Weight Bearing Status Yes During Gait Assistive Devices Assistive Device Gait Belt,Front Wheeled Walker Orthotic/Prosthetic Devices or Brace: No Gait Deviations General Gait Pattern Decreased Stride Length, Decreased Feet Clearance Factors Limiting Gait Function Factors Limiting Gait Function Decreased Activity Tolerance, Decreased Strength,Limited Range of Motion,Pain,Poor Balance,Poor Safety Awareness M5 PT-IP Objective Assessments Start: 10/04/21 10:12 Freq: Status: Active Protocol: Document 10/04/21 10:12 BC (Rec: 10/04/21 10:24 BC [id number]) Orientation Orientation/Cognition Level of Alertness Alert Orientation Name,Age,Date,Year,Place, Situation Gross Range of Motion Upper Extremity ROM Assessment Within Functional Limits Lower Extremity ROM Assessment Within Functional Limits Strength Upper Extremity Strength Assessment Within Functional Limits Lower Extremity Strength Assessment Within Functional Limits Knee 5/5 Ankle 5/5 Comments Strength Comments no focal weakness in distal LEs. Hip MMT not assessed due to recent spine sx and pain. Functionally she is demonstrating good BLE strength. Coordination Assessment Gross Coordination Gross Coordination WNL Muscle Tone Muscle Tone WNL Yes M6 PT-IP Treatment Start: 10/04/21 10:12 Freq: Status: Active Protocol: Document 10/04/21 14:15 AB (Rec: 10/04/21 15:39 AB [id number]) Physical Therapy Treatment Education Education Provided Precautions,Safety M7 PT-IP Assessment and Plan Start: 10/04/21 10:12 Freq: Status: Active Protocol: Document 10/04/21 14:15 AB (Rec: 10/04/21 15:39 AB [id number]) PT Summary Assessment and Plan Potential Rehabilitation Potential Good Summary Impairments Pain,ROM,Strength,Balance, Coordination,Sensation,Tone, Cognition,Bed Mobility, Transfers,Gait,Activity Tolerance Progress Towards Goals Slow Progress due to Pain Assessment Summary pt requiring SBA to CGA with mobility using FWW and will have her sister to assist her at home. stair climbing training will be conducted prior to d/c. Goals Bed Mobility Goal Independent Transfer Goal Independent Gait Goal Independent,Front Wheel Walker Gait Distance 200 Other Goals up/down 1 step using FWW SBA Days to Meet Goals 3 Frequency of Treatment Frequency Of Treatment Twice a Day Treatment Plan Physical Therapy Treatment Plan Bed Mobility Training,Transfer Training,Gait Training,Post Op Education,Discharge Planning Precautions Lumbar Precautions Log Roll,No Twisting,Limit Bending,Lifting Restriction of 10 lbs,Gait Belt above Incisional Area Recommendations To Nursing Amount of Assist Needed 1 Person Assist Discharge Recommendations PT Discharge Recommendations Home with Assistance Transportation Needs at Discharge Private Vehicle
--- NOTE | 2021-10-04 14:49 | PM.PN.1 ---
Subjective Subjective Interval history: In review of patient's BP today it appears she is much more controlled. Medicine will sign off at this time. Please do not hesitate to contact us with any additional questions. Exam Vital Signs (past 8 hours): - 10/04/21 07:30 10/04/21 12:00 Temperature 97.7 F 98 F Pulse Rate 94 H 81 Respiratory Rate 17 16 Blood Pressure 140/75 111/54 L Pulse Oximetry 96 99 Oxygen Delivery Method Nasal Cannula Oxygen Flow Rate 0 Objective Labs Result Diagrams: 10/04/21 05:27 Labs: Laboratory Results - last 24 hr 10/04/21 05:27 Hgb 9.7 L Hct 29.8 L PFSH Medical History (Updated 10/04/21 @ 10:04 by Chio Crockett PA-C) Arthritis Asthma Bone spur Bone spur of left foot Bruises easily Chronic heartburn Constipation Deviated septum Diabetes Dry skin Essential hypertension GERD (gastroesophageal reflux disease) Hard of hearing Hemorrhoids Herniated disc History of nephrolithiasis History of UTI Hx of migraine headaches Hypertension Hypothyroid IBS (irritable bowel syndrome) Impaired vision in both eyes Impairment of balance Incontinence Kidney stones Lower back pain Lower urinary tract symptoms (LUTS) Major depressive disorder Migraine Numbness and tingling of both legs Numbness in both legs Obesity Post-menopausal Postmenopausal atrophic vaginitis Rheumatoid arthritis Rosacea Sinus headache SOB (shortness of breath) on exertion Thyroid disease Urinary tract infection Vertigo Surgical History (Updated 10/04/21 @ 10:04 by Chio Crockett PA-C) H/O detached retina repair H/O foot surgery H/O laminectomy History of bilateral knee replacement History of eye surgery History of hysterectomy History of spinal fusion (10/01/17) Hx of LASIK Hx of nasal septoplasty Family History (Updated 10/03/21 @ 18:16 by Juanito Pina DO) Brother Diabetes mellitus Mother Diabetes mellitus Social History household members: none Smoking Status: Never smoker alcohol intake: current substance use type: does not use Assessment & Plan Time Spent With Patient Critical Care time: I spent a total of [] minutes of critical care time on this patient's care today; this time is exclusive of procedural time.
[2021-10-04] MEDS: DULOXETINE 30 MG CAPSULE 60 MG PO (16:38)
[2021-10-04] MEDS: ATORVASTATIN 20 MG TABLET PO (16:39)
[2021-10-04] MEDS: GABAPENTIN 300 MG CAPSULE PO (16:39)
[2021-10-04] MEDS: TIZANIDINE 4 MG TABLET PO (16:55)
[2021-10-04 19:30] VITALS: BP 96/54; PULSE 75; RESP 16; TEMP 36.7; O2SAT 98
[2021-10-04] MEDS: FLUTICASONE 120 SPRAY/16 GM SPRAY.SUSP NASAL (20:12)
[2021-10-04] MEDS: SENNOSIDES 8.6 MG TABLET 17.2 MG PO (20:16)
[2021-10-04] MEDS: PANTOPRAZOLE DR 20 MG TABLET PO (20:17)
[2021-10-04] MEDS: SODIUM CHLORIDE 0.9% FLUSH 10 ML IV (20:38)
[2021-10-05] MEDS: OXYCODONE IR 5 MG TABLET 10 MG PO ×4 (02:20→11:19)
[2021-10-05 02:24] VITALS: BP 143/71; PULSE 71
[2021-10-05] MEDS: LEVOTHYROXINE 125 MCG TABLET PO (06:04)
[2021-10-05 07:00] VITALS: BP 137/67; PULSE 75; RESP 18; TEMP 36.4; O2SAT 96
[2021-10-05] MEDS: POTASSIUM CHLORIDE 10 MEQ TAB PO (08:07)
[2021-10-05] MEDS: SERTRALINE 50 MG TABLET 100 MG PO (08:07)
[2021-10-05] MEDS: hydroCHLOROthiazide 25 MG TABLET 50 MG PO (08:07)
[2021-10-05] MEDS: DOCUSATE 100 MG CAPSULE PO (08:07)
[2021-10-05 08:18] VITALS: BP 132/82; PULSE 83
[2021-10-05] MEDS: lisinopriL 20 MG TABLET PO (08:18)
[2021-10-05] MEDS: SODIUM CHLORIDE 0.9% FLUSH 10 ML IV (09:29)
--- NOTE | 2021-10-05 09:49 | P.DS_ITS ---
History of Present Illness History of Present Illness Date Patient Seen: 10/05/21 Time Patient Seen: 09:49 Chief complaint: HTN Narrative: Operative Date/Time/Diagnoses Date of procedure: 10/03/21 Time of procedure: 08:45 Pre-op diagnosis: 1. L2-3 hardware loosening 2. Previous L2-5 fusion with pseudoarthrosis at L2-3 level 3. L1-2 spinal stenosis with radiculopathy Post-op diagnosis: same Procedure & Clinicians Procedure: 1. L1-2 Postero-lateral and posterior interbody fusion 2. L1-2 interbody cage placement. 3. L1-2 decompressive laminectomy with bilateral facetecomies 4. L1-2 L2-3 L3-4 L4-5 Posterior segmental instrumentation 5. L2-5 posterior segmental hardware removal 6. L2-3 L3-4 exploration of fusion with left hemilaminectomy 7. L2-3 posterolateral fusion 8. [place] of bone marrow from iliac crest 9. Utilization of microsurgical technique and operating microscope Same procedure as scheduled: Yes Indications: Patient has been having chronic back pain and worsening lumbar radiculopathy. Patient's recent x-ray showed L2 pedicle screw fracture with patient's correlating symptoms with both back pain and radiculopathy. Patient failed multiple conservative management with worsening pain weakness and numbness in her lower extremity.? Patient has been having difficulty performing activity of daily living.? After discussing risks benefits of treatment options, patient elected proceed with surgery. Surgeon: Estuardo Rosa Lamp Shade Assembler: Yeimy Sutherland Anesthesia Type: General Operative Notes Closure Type: primary Specimen(s): none sent Prosthetic devices, grafts, tissues, transplants, or devices: Globus CREO MIS screws, Globus revolve screws, Rise cage Applied: catheter Estimated Blood Loss (mL): 50 Blood products transfused: none Discharge Providers Provider Date of admission: 10/03/21 07:21 Discharge Date: 10/05/21 Consults: 10/03/21 14:44 Consult to Occupational Therapy Evaluate & Treat Comment: Physician Instructions: Evaluate and treat Consult to Physical Therapy Evaluate & Treat Comment: Physician Instructions: Evaluate and Treat Discharge provider: Chio Crockett PA-C Summary Hospital Course Discharge Diagnosis: L1-2 posterior interbody fusion w/ L1-L5 posterior instrumentation Acute anemia d/t expected surgical blood loss Essential HTN Obesity Hospital Course: Ms Pereira's hospital course was unremarkable. On POD# 2 she was feeling well and wanted to go home. She was evaluated by PT throughout her stay. She was eating and voiding without difficulty and her pain was well-controlled with oral medications. Exam Vital Signs (past 8 hours): - 10/05/ 02:24 10/05/21 07:00 10/05/21 08:18 Temperature 97.6 F Pulse Rate 71 75 83 Respiratory Rate 18 Blood Pressure 143/71 H 137/67 132/82 Pulse Oximetry 96 Oxygen Delivery Method Nasal Cannula Oxygen Flow Rate 0 Narrative Exam Narrative: 5/5 strength in hip flexors, quadriceps, hamstrings, DF, PF, EHL bilaterally. Sensation to light touch intact in BLE. Calves soft, compressible, nontender and without palpable cords or masses. Dressing placed intraoperatively with so me old bloody drainage, otherwise intact. Objective Labs Result Diagrams: 10/04/21 05:27 [facility] Medical History (Updated 10/04/21 @ 10:04 by Chio Crockett PA-C) Arthritis Asthma Bone spur Bone spur of left foot Bruises easily Chronic heartburn Constipation Deviated septum Diabetes Dry skin Essential hypertension GERD (gastroesophageal reflux disease) Hard of hearing Hemorrhoids Herniated disc History of nephrolithiasis History of UTI Hx of migraine headaches Hypertension Hypothyroid IBS (irritable bowel syndrome) Impaired vision in both eyes Impairment of balance Incontinence Kidney stones Lower back pain Lower urinary tract symptoms (LUTS) Major depressive disorder Migraine Numbness and tingling of both legs Numbness in both legs Obesity Post-menopausal Postmenopausal atrophic vaginitis Rheumatoid arthritis Rosacea Sinus headache SOB (shortness of breath) on exertion Thyroid disease Urinary tract infection Vertigo Surgical History (Updated 10/04/21 @ 10:04 by Chio Crockett PA-C) H/O detached retina repair H/O foot surgery H/O laminectomy History of bilateral knee replacement History of eye surgery History of hysterectomy History of spinal fusion (10/01/17) Hx of LASIK Hx of nasal septoplasty Family History (Updated 10/03/21 @ 18:16 by Juanito Pina DO) Brother Diabetes mellitus Mother Diabetes mellitus Social History household members: none Smoking Status: Never smoker alcohol intake: current substance use type: does not use Discharge Assessment & Plan Assessment and Plan Assessment: L1-2 posterior interbody fusion w/ L1-L5 posterior instrumentation Acute anemia d/t expected surgical blood loss Essential HTN Obesity Plan of Treatment: Discharge home, oxycodone and vistaril for pain. Discharge Plan Discharge Plan Patient Disposition: Home Discharge orders & Medications Prescriptions: New acetaminophen 325 mg Tablet 650 mg PO Q6HR PRN (Reason: Pain, Mild (1-3)) Qty: 120 1RF docusate sodium 100 mg Capsule 100 mg PO BID PRN (Reason: constipation) Qty: 60 2RF hydroxyzine pamoate 25 mg Capsule 25 mg PO Q4HR PRN (Reason: muscle spasm) Qty: 120 1RF oxycodone 5 mg Tablet 5 mg PO Q4H PRN (Reason: Pain, Severe (7-10)) Qty: 60 0RF Rx Instructions: 5-10 mg q 4 hrs Continued levothyroxine [Synthroid] 125 mcg tablet 125 mcg PO DAILY Qty: 90 0RF lidocaine [Lidoderm] 5 % adhesive patch,medicated 1 patch TOP DAILY Qty: 15 0RF Rx Instructions: leave on most painful area for 12 hrs gabapentin 300 mg Capsule 300 mg PO QPM 0RF hydrochlorothiazide 50 mg Tablet 50 mg PO DAILY 0RF phenazopyridine [Pyridium] 200 mg Tablet 200 mg PO TID PRN (Reason: bladder/kidney stone problems) 0RF clotrimazole-betamethasone [Lotrisone] 1-0.05 % Cream 1 applic TOPICAL BID PRN (Reason: Rash, dry patches) 0RF benazepril [Lotensin] 20 mg Tablet 20 mg PO DAILY 0RF duloxetine 60 mg Capsule,Delayed Release(Dr/Ec) 60 mg PO QPM 0RF sertraline [Zoloft] 100 mg Tablet 100 mg PO DAILY 0RF sumatriptan succinate [Imitrex] 50 mg Tablet 50 - 100 mg PO Q2-4H PRN (Reason: Headache) 0RF hydrocortisone-pramoxine [Analpram-HC] 2.5-1 % Cream 1 applic [place] BID PRN (Reason: itchy,bleeding hemorroids) 0RF omeprazole 10 mg Capsule,Delayed Release(Dr/Ec) 20 mg PO QPM 0RF potassium chloride 10 mEq Tablet Extended Release 10 meq PO BID 0RF atorvastatin 20 mg Tablet 20 mg PO QPM 0RF ondansetron 4 mg Tablet,Disintegrating 4 mg PO BID PRN (Reason: Nausea) 0RF fluticasone propionate [Flonase Allergy Relief] 50 mcg/actuation [place]ot,Suspension 1 spray INTRANASAL DAILY PRN (Reason: Sinus congestion) 0RF tizanidine 4 mg Capsule 4 - 8 mg PO BID PRN (Reason: muscle spasms) 0RF Label Comments: May take additional two tabs at bedtime as needed Discontinued ibuprofen 200 mg Capsule 400 mg PO DAILY PRN (Reason: Pain) 0RF acetaminophen-codeine 300-30 mg Tablet 1 - 2 tab PO DAILY PRN (Reason: Sinus headache) 0RF etodolac 500 mg tablet extended release 24 hr 500 mg PO QPM 0RF Follow up/Referrals: Estuardo Rosa MD [Physician] - As previously scheduled (Follow up w/ Dr Rosa on 10/16/2021 @ 1:00 pm at [facility]) Diet/Activity/Treatments Diet: Diet as Tolerated Activity: Walk frequently! No deep bending or twisting at the waist. No lifting more than 20 pounds. Cold/Heat Therapy: Heating pad to back as needed for pain. Skin/Wound/Dressing Care Report to your healthcare provider any signs of infection, such as:: chills, fever, night sweats, unusual drainage and unusual redness Dressing: May shower; keep dressing as dry as possible. May change to clean, d ry gauze if it becomes wet inside. No bathing or otherwise soaking incisions. Do not apply any creams, lotions, or ointments to incisions. Visit Report/Discharge Packet Instructions: DI for Prescription Opioid Use, DI for Transforaminal Lumbar Interbody Fusion Stand Alone Forms: Surgery Discharge
[2021-10-05] MEDS: ACETAMINOPHEN 325 MG TABLET 650 MG PO (11:19)
--- NOTE | 2021-10-05 11:38 | OT.IP.TRT ---
Current Diagnoses Acute posthemorrhagic anemia (10/03/21) Obesity, unspecified (10/03/21) Essential (primary) hypertension (10/03/21) Unspecified fracture of unspecified lumbar vertebra, subsequent encounter for fracture with nonunion (10/03/21) Other mechanical complication of other internal orthopedic devices, implants and grafts, initial encounter (10/03/21) Arthrodesis status (10/03/21) Surgery Performed Operation Date: 10/03/21 08:45 Actual Procedures p L1-2 TLIF, L2-5 lumbar HWR, exploration of fusion,repeat laminectomy, reinsertion of hardware - Estuardo Rosa MD Occupational Therapy Treatment Note M2 OT-IP Current Condition Start: 10/04/21 12:16 Freq: Status: Discharge Protocol: Document 10/04/21 12:17 [facility] (Rec: 10/04/21 12:47 [facility] [id number]) Occupational Therapy Current Condition Current Condition Evaluation Date 10/04/21 Treatment Diagnosis S/p L1-2 TLIF, L2-L5 hardware removal, repeat laminectomy Diagnosis Onset Date 10/03/21 Post Operative Precautions Lumbar Precautions Log Roll,No Twisting,Limit Bending,Lifting Restriction of 10 lbs,Gait Belt above Incisional Area M3 OT- IP Subjective and Pain Start: 10/04/21 12:16 Freq: Status: Discharge Protocol: Document 10/05/21 09:59 [facility] (Rec: 10/05/21 11:51 [facility] [id number]) OT- Subjective Occupational Therapy Visit Type Type Treatment Note Visit Start Time 09:59 Visit Stop Time 11:38 Total Visit Minutes 25 Notes Pt seen for split treatment [id number] and [id number]. Able to talk to pt's sister regarding ADL'S and mobility needs. Occupational Therapy Visit Comments Patient Comments Pt not wanting to shower but wanting to get dressed. Patient/Caregiver Goals TO go home. OT Pain Assessment Pain When Pain Assessed During Mobility Pain Present Pain Present Pain Reported Location Back Intensity 6 Scale Used Numeric (0 - 10) M4 OT- IP ADL's Start: 10/04/21 12:16 Freq: Status: Discharge Protocol: Document 10/05/21 09:59 [facility] (Rec: 10/05/21 11:51 [facility] [id number]) OT ADL-Dressing General Eval Lower Body Dressing Ability Standby Assistance Comments OT Dressing Comments Pt able to use geophysical e logger to help saroj her pants on. Pt will needing asisst to get slipper on over her heels. OT ADL-Bathing Comments OT Bathing Comments Pt refusing M5 OT- IP IADL's Start: 10/04/21 12:16 Freq: Status: Discharge Protocol: Document 10/04/21 12:17 [facility] (Rec: 10/04/21 12:47 [facility] [id number]) OT-Instrumental Activities of Daily Living Home Safety Awareness Home Safety Comments Pt's sistr to stay with her for a week to assist with her needs. M6 OT- IP Functional Cognition Start: 10/04/21 12:16 Freq: Status: Discharge Protocol: Document 10/05/21 09:59 [facility] (Rec: 10/05/21 11:51 [facility] [id number]) Cognitive Factors Limiting Selfcare Function Cognitive Ability Safety Awareness Decreased Ability to Apply Precautions,Underestimates Need for Assistance Cognitive Comments Cognitive Assessment Comments Pt tends to twist during bed mobility needs. Pt insistent that she is fine to sleep on her stomach. Strongly suggested best to sleep on her back or in side lying with pillows. Pt trying to get out from being supine on her stomach and tends to twist and turn her body. Pt insistent that she will be fine. Pt's sister aware and states able to assist her to roll if needed. M7 OT- IP Mobility and Balance Start: 10/04/21 12:16 Freq: Status: Discharge Protocol: Document 10/05/21 09:59 [facility] (Rec: 10/05/21 11:51 [facility] [id number]) OT- Bed Mobility Assessment Supine to Sit Supine to Sit Assist Standby Assistance OT-Transfer Assessment Sit to and From Stand Sit to and from Stand Standby Assistance Transfers Transfer Ability Standby Assistance Technique Transfer Destination Bed,Chair Transfer Technique Stand Step Pivot Devices Transfer Assistive Devices Gait Belt,Front Wheeled Walker Comments Mobility Comments Pt still insistent to sleep on her stomach. Pointed out that pt is twisting when trying to get up from her stomach and that is detrimental as one of her precautions is no twisting . OT- Balance Assessment Sitting Balance and Reactions Static Sitting Balance Ability Good Dynamic Sitting Balance Ability Good Standing Balance and Reactions Static Standing Balance Ability Fair Dynamic Standing Balance Ability Fair M8 OT- IP Objective Assessments Start: 10/04/21 12:16 Freq: Status: Discharge Protocol: Document 10/04/21 12:17 [facility] (Rec: 10/04/21 12:47 [facility] [id number]) OT-Muscle Tone Assessment Muscle Tone WNL Yes M9 OT- IP Assessment and Plan Start: 10/04/21 12:16 Freq: Status: Discharge Protocol: Document 10/05/21 09:59 [facility] (Rec: 10/05/21 11:51 [facility] [id number]) OT Summary Assessment and Plan Potential Rehabilitation Potential Good Analytic Complexity at Evaluation Low Summary OT Impairments Pain,Balance,Functional Mobility,Dressing,Toileting, Bathing,Toilet Transfers, Shower Transfers,Activity Tolerance Progress Towards Goals Progressing Toward Goals Assessment Summary Pt's main barrier are having difficulty to follow her back precautions as still insistent to sleep on her stomach while in bed and at times gets a little impulsive and forgets about her back precautions. Pt 's sister to stay with her 24/ 7 initially for a week. Goals Grooming Goal Independent Dressing Goal Independent Bathing Goal Independent Toilet Transfer Goal Independent Shower Transfer Goal Independent Days to Meet Goals 9 Frequency of Treatment Frequency Of Treatment Once a Day Treatment Plan OT Treatment Plan ADL Training,Functional Cognition Training,Functional Mobility,Patient/Family Education,Discharge Planning Discharge Recommendations OT Discharge Recommendations Home with 24/7 Assist Available,Home Health Transportation Needs at Discharge Private Vehicle
--- NOTE | 2021-10-05 11:43 | PT.IPTN ---
Current Diagnoses Acute posthemorrhagic anemia (10/03/21) Obesity, unspecified (10/03/21) Essential (primary) hypertension (10/03/21) Unspecified fracture of unspecified lumbar vertebra, subsequent encounter for fracture with nonunion (10/03/21) Other mechanical complication of other internal orthopedic devices, implants and grafts, initial encounter (10/03/21) Arthrodesis status (10/03/21) Surgery Performed Operation Date: 10/03/21 08:45 Actual Procedures p L1-2 TLIF, L2-5 lumbar HWR, exploration of fusion,repeat laminectomy, reinsertion of hardware - Estuardo Rosa MD Physical Therapy Treatment Note M2 PT-IP Current Condition Start: 10/04/21 10:12 Freq: Status: Discharge Protocol: Document 10/04/21 10:12 [facility] (Rec: 10/04/21 10:24 [facility] [id number]) Physical Therapy Current Condition Current Condition Evaluation Date 10/04/21 Treatment Diagnosis difficulty with ambulation Onset Date 10/03/2021 M3 PT-IP Subjective Start: 10/04/21 10:12 Freq: Status: Discharge Protocol: Document 10/05/21 10:11 [facility] (Rec: 10/05/21 12:06 [facility] [id number]) Subjective Physical Therapy Visit Type Type Treatment Note Visit Start Time 10:11 Visit Stop Time 11:43 Total Visit Minutes 24 Notes Split treatment 10:11-10:30 11:38-11:43 Number of MOTOR DRIVER Visits 1 Physical Therapy Visit Comments Patient Comments Pt agreeable to working w/ therapy. M4 PT-IP Mobility and Gait Start: 10/04/21 10:12 Freq: Status: Discharge Protocol: Document 10/05/21 10:11 [facility] (Rec: 10/05/21 12:06 [facility] [id number]) PT-Transfer Assessment Sit to and From Stand Sit to and from Stand Standby Assistance,1 Person Assistance,Use of Upper Extremities Equipment Transfer Assistive Device Gait Belt,Front Wheeled Walker Orthotic/Prosthetic Devices or Brace: No Transfers Transfer Destination Chair Transfer Technique Pt ambulated w/ FWW Transfer Ability Level of Assist Standby Assistance,1 Person Assistance,Use of Upper Extremities Comments Mobility Comments Pt in chair upon arrival and agreeable to complete stair training. SBA for sit<>stand w / FWW. Pt then ambulated ~40 ft to platform step in hallway and ascended/descended 1x platform step w/ FWW and CGA w / cues for sequencing. Pt then ambulated additional 110 ft w / FWW and returned to room and chair. Able to recall all spinal precautions. Pt sister later arrived, discussed how to assist pt and spinal precautions/cues pt needs at this time. Pt and sister feel safe to return home and have no further needs. Gait Assessment Gait Gait Assistance Required: Standby Assistance,Contact Guard Assist,1 Person Assist Distance (Feet) 150 Able to Maintain Weight Bearing Status Yes During Gait Assistive Devices Assistive Device Gait Belt,Front Wheeled Walker Orthotic/Prosthetic Devices or Brace: No Gait Deviations General Gait Pattern Decreased Stride Length, Decreased Feet Clearance Factors Limiting Gait Function Factors Limiting Gait Function Decreased Activity Tolerance, Decreased Strength,Limited Range of Motion,Pain,Poor Balance,Poor Safety Awareness Comments Gait Comments Pt ambulated well w/ good titus and no LOB while using FWW. Stair Climbing Assessment Evaluation Level of Assist On Stairs Contact Guard Assistance,1 Person Assistance Devices Stair Climbing Assistive Devices Front Wheel Walker Technique/Endurance Stair Climbing Direction Ascend and Descend Stair Climbing Technique Step to Step Number of Steps Climbed 1 Stair Climbing Set # Repetitions (reps) 1 Comments Stair Climbing Comments Pt ascended/descended 1x platform step w/ FWW and CGA w / cues for sequencing. Pt states she feels safe to perform threshold step leading into home w/o difficulty. PT-Balance Assessment Sitting Balance and Reactions Static Sitting Balance Ability Normal Dynamic Sitting Balance Ability Good Standing Balance and Reactions Static Standing Balance Ability Good Dynamic Standing Balance Ability Fair Device Used FWW Comments Other Balance Tests/Deviations/Treatment Discussed HHPT vs outpatient : PT for when appropriate. M5 PT-IP Objective Assessments Start: 10/04/21 10:12 Freq: Status: Discharge Protocol: Document 10/04/21 10:12 (Rec: 10/04/21 10:24 [facility] [id number]) Orientation Orientation/Cognition Level of Alertness Alert Orientation Name,Age,Date,Year,Place, Situation Gross Range of Motion Upper Extremity ROM Assessment Within Functional Limits Lower Extremity ROM Assessment Within Functional Limits Strength Upper Extremity Strength Assessment Within Functional Limits Lower Extremity Strength Assessment Within Functional Limits Knee 5/5 Ankle 5/5 Comments Strength Comments no focal weakness in distal LEs. Hip MMT not assessed due to recent spine sx and pain. Functionally she is demonstrating good BLE strength. Coordination Assessment Gross Coordination Gross Coordination WNL Muscle Tone Muscle Tone WNL Yes M6 PT-IP Treatment Start: 10/04/21 10:12 Freq: Status: Discharge Protocol: Document 10/05/21 10:11 [facility] (Rec: 10/05/21 12:06 [facility] [id number]) Physical Therapy Treatment Exercises Exercises Ankle Pumps Education Education Provided Precautions,Safety Other Treatments Other Treatment Performed Reveiwed precautions and safety w/ pt and her sister. M7 PT-IP Assessment and Plan Start: 10/04/21 10:12 Freq: Status: Discharge Protocol: Document 10/05/21 10:11 [facility] (Rec: 10/05/21 12:06 [place] [id number]) PT Summary Assessment and Plan Potential Rehabilitation Potential Good Summary Impairments Pain,ROM,Strength,Balance, Coordination,Sensation,Tone, Cognition,Bed Mobility, Transfers,Gait,Activity Tolerance Progress Towards Goals Slow Progress due to Pain Assessment Summary Pt SBA for transfers, SBA to [facility] for ambulation and stairs. Able to ambulate ~150 ft w/ FWW and complete stair training. Able to recall 3/3 spinal precautions. Pt and her sister who will be staying with her temporarily, feel confident in returning home. Pt would benefit from HHPT or outpatient PT when appropriate . Goals Bed Mobility Goal Independent Transfer Goal Independent Gait Goal Independent,Front Wheel Walker Gait Distance 200 Other Goals up/down 1 step using FWW SBA Days to Meet Goals 3 Frequency of Treatment Frequency Of Treatment Twice a Day Treatment Plan Physical Therapy Treatment Plan Bed Mobility Training,Transfer Training,Gait Training,Post Op Education,Discharge Planning Precautions Lumbar Precautions Log Roll,No Twisting,Limit Bending,Lifting Restriction of 10 lbs,Gait Belt above Incisional Area Recommendations To Nursing Amount of Assist Needed 1 Person Assist Discharge Recommendations PT Discharge Recommendations Home with Assistance Transportation Needs at Discharge Private Vehicle
== END 2021-10-05 11:47 | disposition home or self-care (01) | DRG 454 ==
PROVIDERS: Admitting Provider Orthopaedic Surgery Orthopaedic Surgery of the Spine; Referring Provider Orthopaedic Surgery Orthopaedic Surgery of the Spine; Visit Provider Orthopaedic Surgery Orthopaedic Surgery of the Spine
PROC: 0SG00AJ Fusion of Lumbar Vertebral Joint with Interbody Fusion Device, Posterior Approach, Anterior Column, Open Approach (ICD-10-PCS; principal; 2021-10-03 08:45)
DX: T84.216A Breakdown (mechanical) of internal fixation device of vertebrae, initial encounter (principal); M96.0 Pseudarthrosis after fusion or arthrodesis; M43.16 Spondylolisthesis, lumbar region; M48.061 Spinal stenosis, lumbar region without neurogenic claudication; M47.26 Other spondylosis with radiculopathy, lumbar region; M96.1 Postlaminectomy syndrome, not elsewhere classified; I10 Essential (primary) hypertension; E03.9 Hypothyroidism, unspecified; G43.909 Migraine, unspecified, not intractable, without status migrainosus; F32.A Depression, unspecified; K21.9 Gastro-esophageal reflux disease without esophagitis; E78.5 Hyperlipidemia, unspecified; Z98.1 Arthrodesis status; Z20.822 Contact with and (suspected) exposure to COVID-19
CPT/HCPCS: 36415; 72100; 76000; 85014; 85018; 87635; 97116; 97161; 97165; 97530; 97535; C9803; C9290; J0131; J0171; J0330; J0690; J1170; J2704; J3010; J3410

== ENCOUNTER → 2022-11-15 13:20 | Outpatient (CLI) | payer MEDICARE, SELFPAY ==
[2021-10-03 20:00] VITALS: BMI 38.9
--- NOTE | 2022-11-15 | DI.CT.S_ITS ---
PROCEDURE: CT SINUS SCREEN WO CON INDICATIONS: Chronic pansinusitis TECHNIQUE: Noncontrast 3.0 mm axial images acquired from the frontal sinuses to the mid-sella, with coronal and sagittal reformats. For radiation dose reduction, the following was used: automated exposure control, adjustment of mA and/or kV according to patient size. COMPARISON: None. FINDINGS: Image quality: Excellent. Maxillary Sinuses: No bony remodeling or destruction. Trace mucosal thickening of the inferior left maxillary sinus. Ethmoid Air Cells: No bony remodeling or destruction. Sinuses are clear. Sphenoid Sinuses: No bony remodeling or destruction. Sinuses are clear. Frontal Sinuses: No bony remodeling or destruction. Sinuses are clear. Ostiomeatal Complexes: Ostiomeatal complexes are patent. No Nikki cells. Miscellaneous: Visualized intra-orbital contents are normal. No gabi bullosa or paradoxical turbinate curvature. Slight leftward nasal septal deviation. Periapical abscess associated with the left maxillary central incisor. IMPRESSION: No evidence of acute or chronic sinusitis. Periapical abscess associated with the left maxillary central incisor. Dictated by: Phil Ho M.D. on 11/15/2022 at 14:19 Approved by: Phil Ho M.D. on 11/15/2022 at 14:21
== END ==
PROVIDERS: PCP Internal Medicine; Referring Provider Otolaryngology; Visit Provider Otolaryngology
DX: J32.4 Chronic pansinusitis (principal); R51.9 Headache, unspecified; K04.7 Periapical abscess without sinus
CPT/HCPCS: 70486

== ENCOUNTER → 2022-12-04 14:19 | Outpatient (CLI) | payer MEDICARE, SELFPAY ==
[2021-10-03 20:00] VITALS: BMI 38.9
--- NOTE | 2022-12-04 | DI.MG.S_ITS ---
BILATERAL DIGITAL SCREENING MAMMOGRAM 3D/2D WITH CAD: 12/04/2022 CLINICAL: Routine screening. Comparison is made to exams dated: 08/03/2020 mammogram and 08/02/2019 mammogram - [facility]. There are scattered areas of fibroglandular density in both breasts (category b / 25%-50% glandular tissue). Current study was also evaluated with a Computer Aided Detection (CAD) system. No significant masses, calcifications, or other findings are seen in either breast. There has been no significant interval change. IMPRESSION: NEGATIVE There is no mammographic evidence of malignancy. A 1 year screening mammogram is recommended. Based on the Tyrer Cuzick model (a risk assessment model) the patient's lifetime risk is 4.4% and her 10 year risk is 3.0%. According to the ACR, ACS, and NCCN guidelines, an annual breast MRI exam along with mammogram is recommended if the patient's lifetime risk is 20% or greater. This exam was interpreted at Station ID: [id number]. NOTE: For mammograms, a report in lay terms will be sent to the patient. Approximately 15% of breast malignancies will not be visualized mammographically. In the management of a palpable breast mass, a negative mammogram must not discourage biopsy of a clinically suspicious lesion. Electronically Signed By: Gregorio cueto/layne:12/04/2022 14:53:39 letter sent: Normal Exam ACR BI-RADS Category 1: Negative [id number]
== END ==
PROVIDERS: PCP Internal Medicine; Referring Provider Internal Medicine; Visit Provider Internal Medicine
DX: Z12.31 Encounter for screening mammogram for malignant neoplasm of breast (principal)
CPT/HCPCS: 77063; 77067

== ENCOUNTER → 2023-02-18 15:17 | Outpatient (CLI) | payer MEDICARE, SELFPAY ==
[2021-10-03 20:00] VITALS: BMI 38.9
--- NOTE | 2023-02-18 | DI.MRI.S_ITS ---
PROCEDURE: MR LUMBAR SPINE WO CON INDICATIONS: Spinal stenosis, lumbar region without neurogenic claudicati TECHNIQUE: Noncontrast sagittal T1 spin echo and T2 fast echo, sagittal STIR, and T2 fast spin echo through the lumbar spine. In cases with scoliosis, additional coronal T2 fast spin echo may be performed. COMPARISON: [facility], MR, L-SPINE WITHOUT CONTRAST, 04/08/2017, 8:57. [facility], MR, MR LUMBAR SPINE WO CON, 11/27/2018, 14:38. [facility], CR, XR LUMBAR SPINE 2 OR 3 VIEWS, 03/19/2022, 15:09. [facility], MR, L-SPINE WITHOUT CONTRAST, 03/24/2015, 13:01. FINDINGS: Image quality: This examination is limited by involuntary motion artifact. There is artifact associated with the metallic hardware. Alignment and Curvature: There is minimal retrolisthesis seen at the L2-L3 level. The degree of retrolisthesis at this level appears improved compared to 2019. Bone Marrow: Marrow is of normal overall signal. No acute vertebral body compression fractures. Spinal Cord: Conus medullaris terminates at the L1 level. Visualized cord demonstrates normal signal and size. Paraspinous Soft Tissues: No paravertebral masses. Extensive postoperative hardware can be seen, with bilateral pedicle screws at L1 through L5. Vertical fixation rods are seen. Disc spacers can be seen throughout the fused region. T11-T12: Moderate loss of disc height is seen. Loss of disc signal is seen. Mild generalized disc bulge is seen. There is a superimposed central disc protrusion. At no neural foraminal narrowing or central canal narrowing can be seen. T12-L1: No significant abnormality is seen. L1-L2: Mild generalized disc bulge is seen. Moderate facet joint hypertrophy is seen. Mild bilateral neural foraminal narrowing can be seen. No central canal narrowing is seen. The degree of neural foraminal narrowing is improved compared to the prior examination. L2-L3: Mild generalized disc bulge is seen. There is moderate right-sided and mild left-sided neural foraminal narrowing. No central canal narrowing is seen. This level is improved compared to the preoperative MRI. L3-L4: Mild generalized disc bulge is seen. Mild facet joint hypertrophy is seen. No significant neural foraminal or central canal narrowing can be seen. The central canal is widely patent. Stable from the prior study. L4-L5: Mild generalized disc bulge is seen. At least moderate facet hypertrophy is seen. There is mild left-sided and minimal right-sided neural foraminal narrowing. No central canal narrowing is seen. When comparison is made with the prior images, these findings are similar. L5-S1: The disc height and disk signal are well-preserved. Mild generalized disc bulge is seen. At least moderate facet hypertrophy is seen. No significant neural foraminal narrowing is seen. No central canal narrowing is seen. Stable from the prior study. IMPRESSION: Improved degrees of narrowing seen at L1-L2 and L2-L3 compared to the preoperative MRI, with expansion of the previously seen hardware, which is now seen L1 through L5. Otherwise, stable findings compared to 2019. Dictated by: Juan Bowman M.D. on 02/18/2023 at 16:52 Approved by: Juan Bowman M.D. on 02/18/2023 at 16:58
== END ==
PROVIDERS: PCP Internal Medicine; Referring Provider Physical Medicine & Rehabilitation; Visit Provider Physical Medicine & Rehabilitation
DX: M48.061 Spinal stenosis, lumbar region without neurogenic claudication (principal)
CPT/HCPCS: 72148

== ENCOUNTER 2023-05-07 08:44 | Day surgery (SDC) | payer MEDICARE, SELFPAY ==
[2021-10-03 20:00] VITALS: BMI 38.9
--- NOTE | 2023-05-07 | PATH_ITS ---
[facility] Accession Number: [id number] No. of containers..01 Tissue . 01 Material submitted: . gastrointestinal site - GASTRIC POLYP . 01 Diagnosis: Gastric Polyp, Biopsy: Fundic gland polyp. No evidence of Helicobacter organisms on H/E stain. Negative for intestinal metaplasia. Negative for dysplasia and malignancy. MRV 05/19/2023 1359 Local . 01 Electronically signed: . Pierre Arreola MD, PhD, Pathologist NPI- [id number] . 01 Gross description: . GASTRIC POLYP: Received in formalin is multiple fragment(s) of dumas, soft tissue measuring 0.8 x 0.3 x 0.1 cm in aggregate submitted entirely in 1 cassette(s) /AAY 05/08/2023 0530 Local . 01 Pathologist provided ICD-10: K31.7 . 01 CPT . 997827 Specimen Comment: A courtesy copy of this report has been sent to [phone] Performed at: 01 [facility] [address] [place] [address], [place], [place] [id number] MD Darvin Torres MD Phone: [phone]
[2023-05-07 09:01] VITALS: BP 169/99; PULSE 85; RESP 16; TEMP 36.3; O2SAT 97; BMI 37.7
[2023-05-07 09:29] VITALS: BMI 37.7
[2023-05-07] MEDS: LACTATED RINGERS 1,000 ML 84 ML IV (09:30)
--- NOTE | 2023-05-07 09:34 | P.HP_ITS ---
History of Present Illness History of Present Illness Date Patient Seen: 05/07/23 Chief complaint: SDC Narrative: History of GERD and occasional vomiting. No vomiting symptoms in the last 2 weeks. [facility] Medical History (Updated 10/04/21 @ 10:04 by Chio Crockett PA-C) Essential hypertension Obesity Rheumatoid arthritis Diabetes Hx of migraine headaches Numbness and tingling of both legs Postmenopausal atrophic vaginitis Lower urinary tract symptoms (LUTS) History of nephrolithiasis History of UTI Urinary tract infection Bone spur Thyroid disease GERD (gastroesophageal reflux disease) Asthma Major depressive disorder Dry skin Bruises easily Rosacea Impairment of balance Herniated disc Arthritis Bone spur of left foot Lower back pain Incontinence Post-menopausal Kidney stones Chronic heartburn Hemorrhoids IBS (irritable bowel syndrome) Constipation SOB (shortness of breath) on exertion Sinus headache Deviated septum Impaired vision in both eyes Hard of hearing Vertigo Numbness in both legs Migraine Hypothyroid Hypertension Surgical History (Updated 10/04/21 @ 10:04 by Chio Crockett PA-C) H/O foot surgery History of spinal fusion (10/01/17) Hx of nasal septoplasty H/O laminectomy History of bilateral knee replacement History of hysterectomy History of eye surgery H/O detached retina repair Hx of LASIK Family History (Updated 10/03/21 @ 18:16 by Juanito Pina DO) Brother Diabetes mellitus Mother Diabetes mellitus Social History household members: none Smoking Status: Never smoker alcohol intake: current substance use type: does not use Meds Home Medications and Allergies Home Medications Medication Instructions Recorded Confirmed Type benazepril 20 mg tablet (Lotensin) 20 mg PO DAILY 09/17/17 05/07/23 History clotrimazole-betamethasone 1 1 applic topical BID PRN Rash, dry 09/17/17 05/07/23 History %-0.05 % topical cream (Lotrisone) patches duloxetine 60 mg capsule,delayed 60 mg PO QPM 09/17/17 05/07/23 History release hydrochlorothiazide 50 mg tablet 50 mg PO DAILY 09/17/17 05/07/23 History phenazopyridine 200 mg tablet 200 mg PO TID PRN bladder/kidney 09/17/17 05/07/23 History (Pyridium) stone problems sertraline 100 mg tablet (Zoloft) 100 mg PO DAILY depression 09/17/17 05/07/23 History sumatriptan succinate 50 mg tablet 50 - 100 mg PO Q2-4H PRN Headache 09/17/17 05/07/23 History (Imitrex) omeprazole 10 mg capsule,delayed 20 mg PO QPM indigestion 10/01/17 05/07/23 History release potassium chloride 10 mEq 10 meq PO BID 10/01/17 05/07/23 History tablet,extended release Synthroid 125 mcg tablet 125 mcg PO DAILY #90 tabs 08/26/18 05/07/23 Rx (levothyroxine) atorvastatin 20 mg tablet 20 mg PO QPM 03/06/20 05/07/23 History fluticasone propionate 50 1 spray intranasal DAILY PRN Sinus 03/06/20 05/07/23 History mcg/actuation nasal congestion spray,suspension (Flonase Allergy Relief) ondansetron 4 mg disintegrating 4 mg PO BID PRN Nausea 03/06/20 05/07/23 History tablet tizanidine 4 mg capsule 4 - 8 mg PO BID PRN muscle spasms 03/06/20 05/07/23 History acetaminophen 325 mg tablet 650 mg (2 x 325 mg) PO Q6HR PRN 10/05/21 05/07/23 Rx Pain, Mild (1-3) #120 tabs hydroxyzine pamoate 25 mg capsule 25 mg PO Q4HR PRN muscle spasm 10/05/21 05/07/23 Rx #120 caps etodolac 500 mg tablet 500 mg PO BID 05/07/23 05/07/23 History hydrocodone 10 mg-acetaminophen 1 tab PO 4XD PRN pain 05/07/23 05/07/23 History 325 mg tablet metformin 500 mg tablet,extended 1,000 mg PO DAILY 05/07/23 05/07/23 History release 24 hr Allergies Allergy/AdvReac Type Severity Reaction Status Date / Time mushroom [MUSHROOM] Allergy Severe 'CUTS OFF Verified 05/07/23 09:12 BREATHING' oxaprozin [OXAPROZIN] Allergy Mild RASH Verified 05/07/23 09:12 diphenhydramine AdvReac Severe PERSONALITY Verified 05/07/23 09:12 [DIPHENHYDRAMINE] CHANGE I TURN INTO AN AX KILLER trazodone [TRAZODONE] AdvReac Severe DIFFICULTY Verified 05/07/23 09:12 SLEEPING, MADE ME CRAZY pineapple [PINEAPPLE] AdvReac Mild Nausea Verified 05/07/23 09:12 Antispasmodics AdvReac Severe Muscle Uncoded 05/07/23 09:12 spasms Exam Vital Signs (past 8 hours): - 05/07/23 09:01 Temperature 97.4 F L Pulse Rate 85 Respiratory Rate 16 Blood Pressure 169/99 H Pulse Oximetry 97 Oxygen Delivery Method Room Air Oxygen Flow Rate 97 Oxygen Delivery Method Room Air Oxygen Flow Rate 97 Narrative Exam Narrative: Oropharynx free of lesions Chest clear to auscultation percussion Cardiac exam reveals no S3 or murmur Assessment & Plan Assessment & Plan narrative: GE reflux and occasional vomiting, improved since office visit. Rule out GE reflux rule out Ibrahim's esophagus. Risks, benefits, alternatives have been explained.
--- NOTE | 2023-05-07 09:36 | PM.OP.EGD ---
Operative Date/Time/Diagnoses Date of procedure: 05/07/23 Pre-op diagnosis: See indication and findings Procedure & Clinicians Study performed: EGD Indications: GE reflux and occasional vomiting under better control at the present time Surgeon: Elfego Ortiz Procedure Notes Procedure in detail: After informed consent was obtained the patient was placed in left lateral decubitus position. The video upper scope placed into the oropharynx and with the patient's help swallowed into the esophagus. The esophagus stomach and duodenum were carefully examined. On withdrawal, retroflexed view the GE junction was performed. The scope was removed. The patient tolerated the procedure well. Blood loss none Complications none Sedation mac Findings 1. Normal esophagus 2. Several small to medium-sized polyps in the body of the stomach. The 2 largest on the anterior wall were both biopsied. They appeared to be typical fundic gland polyps but up to a cm in size 3. Normal distal stomach 4. Normal duodenal bulb and sweep Ms. Pereira should follow up with Dr. Gooden in the office. Symptoms are generally improved and this could be on a as needed basis. She should continue her current medications. We will be in touch regarding biopsies.
[2023-05-07 10:30] VITALS: BP 158/90; PULSE 74; RESP 19; TEMP 37; O2SAT 97
[2023-05-07 10:35] VITALS: BP 166/97; PULSE 73; RESP 17; O2SAT 100
[2023-05-07 10:40] VITALS: BP 154/85; PULSE 73; RESP 18; O2SAT 100
[2023-05-07 10:45] VITALS: BP 141/82; PULSE 70; RESP 17; TEMP 36.5; O2SAT 100
== END 2023-05-07 10:57 | disposition home or self-care (01) ==
PROVIDERS: PCP Internal Medicine; Referring Provider Internal Medicine Gastroenterology; Visit Provider Internal Medicine Gastroenterology
PROC: 0DJ08ZZ Inspection of Upper Intestinal Tract, Via Natural or Artificial Opening Endoscopic (ICD-10-PCS; CPT 43235; principal; 2023-05-07 11:30)
DX: K21.9 Gastro-esophageal reflux disease without esophagitis (principal); R11.11 Vomiting without nausea; K31.7 Polyp of stomach and duodenum
CPT/HCPCS: 43239

== ENCOUNTER → 2023-07-04 13:00 | Outpatient (CLI) | payer MEDICARE, SELFPAY ==
[2021-10-03 20:00] VITALS: BMI 38.9
--- NOTE | 2023-07-04 13:02 | DI.CT.S_ITS ---
PROCEDURE: CT ABDOMEN PELVIS W CON INDICATIONS: . LATERAL FLANK PAIN FOR 6 MONTHS. DENIES SURGERY. TECHNIQUE: After the administration of intravenous contrast, axial sections acquired from the lung bases to the pubic symphysis. Coronal and sagittal reformats were performed. For radiation dose reduction, the following was used: automated exposure control, adjustment of mA and/or kV according to patient size. COMPARISON: None. FINDINGS: Image quality: Diagnostic. Lower Chest: No significant findings. ABDOMEN: Liver: No solid mass. 1.1 centimeters cystic lesion of the left lobe, likely benign Gallbladder: No radiopaque gallstones or wall thickening. Biliary ducts: No biliary dilation. Pancreas: No ductal dilation. spleen: size is within normal limits. adrenal glands: no adrenal nodules. kidneys and ureters: no hydronephrosis. no solid mass. no complex renal cystic lesion which requires follow up. stomach and bowel: normal colonic caliber, without significant wall thickening. visualized appendix appears unremarkable peritoneum: no abnormal intraperitoneal fluid. no free air. ventral wall: fat containing umbilical hernia abdominal nodes: no retroperitoneal or mesenteric adenopathy by size criteria. vessels: aorta and inferior vena cava are normal in size. PELVIS: Pelvic Organs: nonvisualized uterus and ovaries. Bladder: no bladder wall thickening, accounting for underdistention. Pelvic nodes: no enlarged lymph nodes. Miscellaneous: no inguinal hernias are seen. Bones: posterior spinal fusion with discectomy changes L1-L5. IMPRESSION: 1. Reflux of oral contrast into the visualized esophagus. Correlate with symptoms of GERD 2. Fat containing umbilical hernia 3. Extensive lumbar spine posterior fusion with discectomy changes Dictated by: Luis E Fraire M.D. on 07/04/2023 at 16:58 Approved by: Luis E Fraire M.D. on 07/07/2023 at 9:25
[2023-07-04 13:27] LABS: Estimated Glomerular Filt Rate > 60 mL/min (>60)
== END ==
PROVIDERS: Specialist; PCP Internal Medicine; Referring Provider Internal Medicine; Visit Provider Internal Medicine
DX: K76.9 Liver disease, unspecified (principal); K42.9 Umbilical hernia without obstruction or gangrene; R10.9 Unspecified abdominal pain; J45.909 Unspecified asthma, uncomplicated; Z98.1 Arthrodesis status
CPT/HCPCS: 36415; 74177; 82565; Q9967

== ENCOUNTER → 2023-07-21 18:41 | Outpatient (CLI) | payer MEDICARE, SELFPAY ==
[2021-10-03 20:00] VITALS: BMI 38.9
--- NOTE | 2023-07-21 18:50 | DI.MRI.S_ITS ---
PROCEDURE: MR SHOULDER LT WO CON INDICATIONS: PAIN IN LEFT SHOULDER TECHNIQUE: Noncontrast oblique coronal T2 fast spin echo with fat saturation, oblique sagittal T1 spin echo and T2 fast spin echo with fat saturation, axial T1 spin echo and T2 fast spin echo with fat saturation through the shoulder. COMPARISON: None. FINDINGS: Image quality: Diagnostic Rotator cuff: Bulk: No significant atrophy Teres minor: Intact Supraspinatus: High-grade partial-thickness tears, with multifocal articular and bursal sided tears throughout the proximal and distal tendon. Infraspinatus: [id number]-[id number] tendinopathy and interstitial tears, partial-thickness tears. Subscapularis: Moderate tendinopathy Bones and bursae: GH joint: Moderate degenerative changes AC joint: Moderate degenerative changes Humeral head: Intact Scapula and acromion: Intact Bursa: Moderate bursal fluid. Capsule: Labrum: Mild signal abnormality at the anterior superior labrum, along with mild circumferential attenuation. Long head biceps tendon: Diminutive and not well seen in the intra-articular aspect. IGHL: Intact Rotator interval: Preserved fat signal Soft tissues: No axillary adenopathy. Lungs are not well seen. IMPRESSION: High-grade tears of the supraspinatus, without tendinous retraction at this time. Less severe involvement also seen in the infraspinatus and subscapularis, with tendinopathy. Moderate degenerative changes of the acromioclavicular and glenohumeral joints. Circumferential attenuation and mild signal abnormality at the anterior superior labrum, likely degenerative and from prior injury, now with scar/remodeling. Moderate bursal fluid. Diminutive long head biceps tendon, not well seen in the intra-articular aspect likely chronic injury. Correlate with any prior procedures. Dictated by: Gregorio Zhao M.D. on 07/22/2023 at 11:13 Approved by: Gregorio Zhao M.D. on 07/22/2023 at 11:21
== END ==
PROVIDERS: PCP Internal Medicine; Referring Provider Orthopaedic Surgery; Visit Provider Orthopaedic Surgery
DX: M75.112 Incomplete rotator cuff tear or rupture of left shoulder, not specified as traumatic (principal); M25.512 Pain in left shoulder
CPT/HCPCS: 73221

== ENCOUNTER → 2023-08-29 | Outpatient (CLI) | payer MEDICARE, SELFPAY ==
[2021-10-03 20:00] VITALS: BMI 38.9
--- NOTE | 2023-08-29 09:54 | DI.CT.S_ITS ---
PROCEDURE: CT LUMBAR SPINE WO CON INDICATIONS: Spinal stenosis, lumbar region TECHNIQUE: Noncontrast 3 mm thick sections acquired from the T12 level to the sacrum. Sagittal and coronal reformats were constructed. For radiation dose reduction, the following was used: automated exposure control. COMPARISON: [facility], CT, CT LUMBAR SPINE WO CON, 02/21/2021, 15:08. FINDINGS: Image quality: Excellent. Bones: No acute vertebral body compression fracture identified. No pars defect seen. Alignment is unremarkable. Bilateral pedicle screws from L1 through L5 are now seen. The screws appear well placed. Disc spacers are also present from L1 through L5. Some removal of posterior elements again noted. Note is made of a fractured left pedicle screw at L1 with lucency of 3 mm around the posterior fragment. The fractured right pedicle screw at L2 has been partially removed. The vertical fixation rods appear intact. T12-L1: No osseous central canal or neural foraminal stenosis L1-L2: No osseous central canal stenosis. Mild left central canal stenosis caused by osteophytes L2-L3: No osseous central canal stenosis. Mild left osseous neural foraminal stenosis caused by osteophytes L3-L4: No osseous central canal stenosis. Mild left osseous neural foraminal stenosis caused by osteophytes L4-L5: No osseous central canal stenosis. Mild bilateral osseous neural foraminal stenosis caused by osteophytes1 L5-S1: No osseous central canal or neural foraminal stenosis. Soft tissues: No retroperitoneal masses or hematomas. Visualized aorta is normal in caliber. IMPRESSION: Fractured L1 left pedicle screw with 2-3 mm lucency around the posterior fragment which is attached to the vertical fixation lillian. Dictated by: Luis E Fraire M.D. on 08/29/2023 at 12:43 Approved by: Luis E Fraire M.D. on 08/29/2023 at 13:33
== END ==
PROVIDERS: PCP Internal Medicine; Referring Provider Physical Medicine & Rehabilitation; Visit Provider Physical Medicine & Rehabilitation
DX: M48.062 Spinal stenosis, lumbar region with neurogenic claudication (principal); T85.618A Breakdown (mechanical) of other specified internal prosthetic devices, implants and grafts, initial encounter
CPT/HCPCS: 72131

== ENCOUNTER → 2024-02-18 14:24 | Outpatient (CLI) | payer MEDICARE, SELFPAY ==
[2021-10-03 20:00] VITALS: BMI 38.9
--- NOTE | 2024-02-18 14:25 | DI.MG.S_ITS ---
BILATERAL DIGITAL SCREENING MAMMOGRAM 3D/2D WITH CAD: 02/18/2024 CLINICAL: Routine screening. Comparison is made to exams dated: 12/04/2022 mammogram, 08/03/2020 mammogram, and 08/02/2019 mammogram - [facility]. The breasts are almost entirely fatty (category a/<25% glandular tissue). Current study was also evaluated with a Computer Aided Detection (CAD) system. No significant masses, calcifications, or other findings are seen in either breast. There has been no significant interval change. IMPRESSION: NEGATIVE There is no mammographic evidence of malignancy. A 1 year screening mammogram is recommended. Based on the Tyrer Cuzick model (a risk assessment model) the patient's lifetime risk is 3.5% and her 10 year risk is 2.6%. According to the ACR, ACS, and NCCN guidelines, an annual breast MRI exam along with mammogram is recommended if the patient's lifetime risk is 20% or greater. This exam was interpreted at Station ID: [id number]. NOTE: For mammograms, a report in lay terms will be sent to the patient. Approximately 15% of breast malignancies will not be visualized mammographically. In the management of a palpable breast mass, a negative mammogram must not discourage biopsy of a clinically suspicious lesion. Electronically Signed By: Alexia carney/layne:02/18/2024 18:22:57 letter sent: Normal Exam ACR BI-RADS Category 1: Negative [id number]
== END ==
PROVIDERS: PCP Internal Medicine; Referring Provider Internal Medicine; Visit Provider Internal Medicine
DX: Z12.31 Encounter for screening mammogram for malignant neoplasm of breast (principal); R92.313 Mammographic fatty tissue density, bilateral breasts
CPT/HCPCS: 77063; 77067

== ENCOUNTER → 2024-05-07 11:02 | Outpatient (CLI) | payer MEDICARE, SELFPAY ==
[2021-10-03 20:00] VITALS: BMI 38.9
--- NOTE | 2024-05-07 11:05 | DI.RAD.S_ITS ---
PROCEDURE: XR PELVIS 1-2V INDICATIONS: Other specified dorsopathies, sacral and sacrococcygeal von TECHNIQUE: Three view(s) of the pelvis acquired. COMPARISON: None. FINDINGS: Bones: No acute fractures or dislocations. There is lumbar fusion hardware partially seen in the lower lumbar spine with disc spacers. Hardware appears intact. There are two fixation devices crossing the right sacroiliac joint which appear intact. Mild bilateral femoroacetabular joint space loss. No suspicious bony lesions. Soft tissues: Visualized bowel gas pattern is normal. Increased quantity of solid colonic and rectal stool. No suspicious soft tissue calcifications. IMPRESSION: Intact fixation hardware in the right sacroiliac joint and fusion hardware in the lumbar spine. Dictated by: Alexia Richards M.D. on 05/07/2024 at 16:01 Approved by: Alexia Richards M.D. on 05/07/2024 at 16:04
== END ==
PROVIDERS: PCP Internal Medicine; Referring Provider Neurological Surgery; Visit Provider Neurological Surgery
DX: M53.88 Other specified dorsopathies, sacral and sacrococcygeal region (principal); Z98.1 Arthrodesis status
CPT/HCPCS: 72170